=== PATIENT | female | born 1990 | race Caucasian/White ===

== ENCOUNTER 2017-06-13 18:01 | Emergency (ER) | payer OTHER ==
[2017-06-13 18:12] VITALS: TEMP 97.9
[2017-06-13 18:48] LABS: Appearance,Urine Cloudy (Clear); Bacteria,Urine Rare /hpf; Bilirubin,Urine Negative (Negative); Glucose,Urine (UA) Negative (Negative); Ketones,Urine Trace (Negative); Leukocyte Esterase,Urine Trace (Negative); Mucus,Urine Rare /hpf; Nitrite,Urine Negative (Negative); PH, Urine 5.5 (5.0-8.0); Particle Count 9115; Protein,Urine Trace (Negative); RBC,Urine 1 /hpf (0-5); Specific Gravity,Urine 1.017 (1.001-1.035); Squamous Epithelial Cell,Urine 23 /hpf (0-4); UA Billing (MACRO vs. MICRO) MICRO; Urobilinogen,Urine <2.0 mg/dL (<2.0); WBC,Urine 3 /hpf (0-5)
--- NOTE | 2017-06-13 19:14 | CT ---
EXAMINATION TYPE: CT brain torin love DATE OF EXAM: 06/13/2017 COMPARISON: NONE HISTORY: Syncopal episode today without injury. Complains of neck pain CT DLP: 1603.9 mGycm Automated exposure control for dose reduction was used. TECHNIQUE: CT scan of the head and cervical spine are performed without contrast. FINDINGS: Ventricles and sulci are within normal limits. There is no mass effect nor midline shift. There is no sign of intracranial hemorrhage. There is a mucous retention cyst in the left maxillary sinus. The calvarium is intact. There is some cervical kyphotic curvature probably due to positioning. This spaces are normal. [employer] ior elements are intact. I see no fracture. The skull base appears intact. Facet joints appear normal . IMPRESSION: Negative CT scan of the brain. Negative CT scan of the cervical spine. Small mucus retention cyst left maxillary sinus.
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
[2017-06-13 19:49] VITALS: BP 128/68; PULSE 76; RESP 18
== END 2017-06-13 19:50 | disposition home or self-care (01) ==
LOC: EC 18:01
DX: R55 Syncope and collapse (principal); M54.2 Cervicalgia; F32.9 Major depressive disorder, single episode, unspecified; F17.200 Nicotine dependence, unspecified, uncomplicated; Z79.899 Other long term (current) drug therapy
CPT/HCPCS: 70450; 72125; 80306; 81001; 81025; 99285

== ENCOUNTER 2018-10-04 19:04 | Emergency (ER) | payer OTHER ==
[2018-10-04 19:18] VITALS: BP 124/87; PULSE 88; RESP 18; TEMP 98
--- NOTE | 2018-10-04 20:36 | ED ---
General Adult HPI - General Chief complaint: Psychiatric Symptoms Stated complaint: Suicidal Time Seen by Provider: 10/04/18 19:09 Source: patient, EMS, RN notes reviewed Mode of arrival: EMS Limitations: no limitations - History of Present Illness Initial comments: 27-year-old female with a past medical history of depression presents to the emergency department for a chief complaint of suicidal thoughts. Patient states these started after she found out her boyfriend was cheating on her today. Patient states she initially had a plan of jumping in the river or jumping in front of traffic. However she states she is no longer having these thoughts and states she is strong enough to handle this. Legal guardian is concerned about these. However patient has not had them before. Patient is unmedicated for depression. Patient has no other complaints at this time including shortness of breath, chest pain, abdominal pain, nausea or vomiting, headache, or visual changes. - Related Data Allergies Allergy/AdvReac Type Severity Reaction Status Date / Time No Known Allergies Allergy Verified 10/04/18 19:32 Review of Systems ROS Statement: Those systems with pertinent positive or pertinent negative responses have been documented in the HPI. ROS Other: All systems not noted in ROS Statement are negative. Past Medical History Past Medical History: No Reported History Additional Past Medical History / Comment(s): developmental delay History of Any Multi-Drug Resistant Organisms: None Reported Past Surgical History: Section Past Psychological History: Depression Smoking Status: Current every day smoker Past Alcohol Use History: None Reported Past Drug Use History: None Reported General Exam Limitations: no limitations General appearance: alert, in no apparent distress Head exam: Present: atraumatic, normocephalic, normal inspection Eye exam: Present: normal appearance, PERRL, EOMI. Absent: scleral icterus, conjunctival injection, periorbital swelling ENT exam: Present: normal exam, mucous membranes moist Neck exam: Present: normal inspection. Absent: tenderness, meningismus, lymphadenopathy Respiratory exam: Present: normal lung sounds bilaterally. Absent: respiratory distress, wheezes, rales, rhonchi, stridor Cardiovascular Exam: Present: regular rate, normal rhythm, normal heart sounds. Absent: systolic murmur, diastolic murmur, rubs, gallop, clicks GI/Abdominal exam: Present: soft, normal bowel sounds. Absent: distended, tenderness, guarding, rebound, rigid Extremities exam: Present: other (appears WNL x 4) Neurological exam: Present: alert, oriented X3, CN II-XII intact Psychiatric exam: Present: normal affect, normal mood Course Vital Signs 10/04/18 19:09 Temperature 98 F Pulse Rate 88 Respiratory 18 Rate Blood Pressure 124/87 O2 Sat by Pulse 97 Oximetry Medical Decision Making - Medical Decision Making 27-year-old female with a past medical history of depression presents for chief combative suicidal thoughts. He started today after she found out her boyfriend was cheating on her. However patient is refusing having any of these thoughts at this time and states she is strong enough to handle this. EPS evaluated and spoke with legal guardian. They discussed this with the psychiatrist. At this time they feel patient does not need admission if she is denying any current suicidal thoughts and wishes to go home. Mobile crisis will be monitoring patient throughout this evening. She will be following up with [facility] in the morning. Legal guarding aware. Patient safety angelo. Patient ready to go home. Discussed returning if she has any worsening symptoms. - Lab Data Lab Results 10/04/18 10/04/18 Range/Units 20:00 20:00 Urine HCG, Qual Not Detected (Not Detectd) Urine Opiates Screen Not Detected (NotDetected) Ur Oxycodone Screen Not Detected (NotDetected) Urine Methadone Screen Not Detected (NotDetected) Ur Propoxyphene Screen Not Detected (NotDetected) Ur Barbiturates Screen Not Detected (NotDetected) U Tricyclic Antidepress Not Detected (NotDetected) Ur Phencyclidine Scrn Not Detected (NotDetected) Ur Amphetamines Screen Not Detected (NotDetected) U Methamphetamines Scrn Not Detected (NotDetected) U Benzodiazepines Scrn Not Detected (NotDetected) Urine Cocaine Screen Not Detected (NotDetected) U Marijuana (THC) Screen Detected H (NotDetected) Disposition Clinical Impression: Situational depression, Adjustment reaction Disposition: HOME SELF-CARE Condition: Good Instructions (If sedation given, give patient instructions): Depression (ED), Suicide Prevention (ED) Additional Instructions: Please follow up with [facility] tomorrow morning as directed by the psychology nurse. Please follow-up with primary care. Return here if you have any worsening symptoms whatsoever including additional thoughts of suicide. Is patient prescribed a controlled substance at d/c from ED?: No Referrals: Melanie Pinzon MD [STAFF PHYSICIAN] - 1-2 days Time of Disposition: 21:33
[2018-10-04 20:40] LABS: Amphetamine Screen,Urine Not Detected (NotDetected); Barbiturate Screen,Urine Not Detected (NotDetected); Benzodiazepines Screen,Urine Not Detected (NotDetected); Cocaine Screen,Urine Not Detected (NotDetected); Methadone Screen, Urine Not Detected (NotDetected); Opiate Screen,Urine Not Detected (NotDetected); Oxycodone Screen, Urine Not Detected (NotDetected); Phencyclidine Screen,Urine Not Detected (NotDetected); Tricyclic Antidepressant,Urine Not Detected (NotDetected); Urn Cannabinoid Scrn Detected (NotDetected)
== END 2018-10-04 21:49 | disposition home or self-care (01) ==
LOC: EC 19:04
DX: F43.21 Adjustment disorder with depressed mood (principal); F17.200 Nicotine dependence, unspecified, uncomplicated
CPT/HCPCS: 80306; 81025; 82075; 99285

== ENCOUNTER 2023-07-02 23:40 | Emergency (ER) | payer OTHER ==
[2023-07-03 00:21] VITALS: BP 102/44; PULSE 79; RESP 18; TEMP 98.2
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
--- NOTE | 2023-07-03 03:40 | CT ---
EXAM: CT Head Without Intravenous Contrast CLINICAL HISTORY: ITS.REASON CT Reason: head injury TECHNIQUE: Axial computed tomography images of the head/brain without intravenous contrast. CTDI is 60.3 mGy and DLP is 1054.2 mGy-cm. This CT exam was performed using one or more of the following dose reduction techniques: automated exposure control, adjustment of the mA and/or kV according to patient size, and/or use of iterative reconstruction technique. COMPARISON: No relevant prior studies available. FINDINGS: Brain: No hemorrhage or mass effect. Ventricles: No hydrocephalus. Bones/joints: Unremarkable. Soft tissues: Unremarkable. Sinuses: No air fluid level. Mastoid air cells: Clear. IMPRESSION: No acute hemorrhage, hydrocephalus, or mass effect.
== END 2023-07-03 03:01 | disposition left against medical advice (07) ==
LOC: EC 23:40
DX: S09.90XA Unspecified injury of head, initial encounter (principal); F17.200 Nicotine dependence, unspecified, uncomplicated; F12.90 Cannabis use, unspecified, uncomplicated; Z53.29 Procedure and treatment not carried out because of patient's decision for other reasons; W20.8XXA Other cause of strike by thrown, projected or falling object, initial encounter
CPT/HCPCS: 70450; 99284

== ENCOUNTER 2023-10-05 04:33 | Emergency (ER) | payer OTHER ==
--- NOTE | 2023-10-05 05:04 | ED ---
Psych HPI - General Source: patient Mode of arrival: ambulatory - History of Present Illness MD Complaint: suicidal ideation -: hour(s) Associated Psychiatric Symptoms: suicidal ideation Quality: constant Improves With: none Worsens With: none Context: significant life stressor <RufinoRaul - Last Filed: 10/05/23 08:27> <Sarthak Post - Last Filed: 10/07/23 13:24> - General Chief Complaint: Psychiatric Symptoms Stated Complaint: petition Time Seen by Provider: 10/05/23 04:54 - History of Present Illness Initial Comments: This patient is a 32-year-old woman brought by [facility] department personnel to have evaluation for suicidal ideation. The patient had a conflict with her boyfriend. She then complained of suicidal ideation and made a number scratches to her left forearm using a knife. (Raul Joy) - Related Data Allergies Allergy/AdvReac Type Severity Reaction Status Date / Time No Known Allergies Allergy Verified 10/05/23 04:49 Review of Systems ROS Other: All systems not noted in ROS Statement are negative. Constitutional: Denies: fever, chills Respiratory: Denies: cough, dyspnea Cardiovascular: Denies: chest pain, palpitations Gastrointestinal: Denies: abdominal pain, vomiting, diarrhea Genitourinary: Denies: dysuria, hematuria Musculoskeletal: Denies: back pain Skin: Denies: rash Neurological: Denies: headache, weakness, numbness Psychiatric: Reports: anxiety, suicidal thoughts. Denies: auditory hallucinations, visual hallucinations, homicidal thoughts <SamiaRaul rocha - Last Filed: 10/05/23 08:27> ROS Other: All systems not noted in ROS Statement are negative. <Sarthak Post - Last Filed: 10/07/23 13:24> ROS Statement: Those systems with pertinent positive or pertinent negative responses have been documented in the HPI. Past Medical History Past Medical History: No Reported History Additional Past Medical History / Comment(s): developmental delay History of Any Multi-Drug Resistant Organisms: None Reported Past Surgical History: Section Past Psychological History: Depression Smoking Status: Current every day smoker Past Alcohol Use History: None Reported Past Drug Use History: Marijuana <RufinoRaul - Last Filed: 10/05/23 08:27> General Exam Limitations: no limitations General appearance: alert, anxious Head exam: Present: atraumatic, normocephalic Eye exam: Present: normal appearance. Absent: scleral icterus, conjunctival injection ENT exam: Present: normal oropharynx Neck exam: Present: normal inspection Respiratory exam: Present: normal lung sounds bilaterally. Absent: respiratory distress, wheezes, rales, rhonchi, stridor Cardiovascular Exam: Present: normal rhythm, tachycardia, normal heart sounds. Absent: systolic murmur, diastolic murmur, rubs, gallop GI/Abdominal exam: Present: soft. Absent: distended, tenderness, guarding, rebound, rigid, mass Extremities exam: Present: normal inspection, normal capillary refill. Absent: pedal edema, calf tenderness Back exam: Present: normal inspection. Absent: CVA tenderness (R), CVA tenderness (L) Neurological exam: Present: alert Psychiatric exam: Present: agitated, suicidal ideation. Absent: flat affect, manic, homicidal ideation Skin exam: Present: warm, dry, intact, normal color. Absent: rash <Raul Joy - Last Filed: 10/05/23 08:27> Course Vital Signs 10/05/23 10/05/23 10/05/23 04:47 06:15 08:05 Temperature 98.5 F 98.0 F Pulse Rate 118 H 72 88 Respiratory 20 18 18 Rate Blood Pressure 109/61 106/72 O2 Sat by Pulse 99 99 98 Oximetry 10/05/23 14:17 Temperature 98 F Pulse Rate 82 Respiratory 18 Rate Blood Pressure 110/58 O2 Sat by Pulse 97 Oximetry Medical Decision Making <Raul Joy - Last Filed: 10/05/23 08:27> <Sarthak Post - Last Filed: 10/07/23 13:24> - Medical Decision Making Was pt. sent in by a medical professional or institution (, PA, PRISON PSYCHIATRIST, urgent care, hospital, or senior care...) When possible be specific @ -[No] Did you speak to anyone other than the patient for history (EMS, parent, family, police, friend...)? What history was obtained from this source @ -[Cross Tie Maker personal give history Did you review nursing and triage notes (agree or disagree)? Why? @ -[I reviewed and agree with nursing and triage notes] Were old charts reviewed (outside hosp., previous admission, EMS record, old EKG, old radiological studies, urgent care reports/EKG's, senior care records)? Report findings @ -[No old charts were reviewed] Differential Diagnosis (chest pain, altered mental status, abdominal pain women, abdominal pain men, vaginal bleeding, weakness, fever, dyspnea, syncope, headache, dizziness, GI bleed, back pain, seizure, CVA, palpatations, mental health, musculoskeletal)? @ -[Differential Mental Health Depression, anxiety, bipolar, psychosis, schizophrenia, borderline personality, situational depression, adjustment disorder, behavioral disorder, brain tumor, malingering, substance abuse, encephalopathy, medication reaction, dementia, hypothyroidism, degenerative neurologic disorder, lupus.... This is not meant to be all-inclusive list EKG interpreted by me (3pts min.). @ -[As above] X-rays interpreted by me (1pt min.). @ -[None done] CT interpreted by me (1pt min.). @ -[None done] U/S interpreted by me (1pt. min.). @ -[None done] What testing was considered but not performed or refused? (CT, X-rays, U/S, labs)? Why? @ -[None] What meds were considered but not given or refused? Why? @ -[None] Did you discuss the management of the patient with other professionals (professionals i.e. , PA, PRISON PSYCHIATRIST, lab, RT, psych nurse, social services designee, telecommunications sales representative, teacher, tank officer, case packer and sealer)? Give summary @ -[No] Was smoking cessation discussed for >3mins.? @ -[No] Was critical care preformed (if so, how long)? @ -[No] Were there social determinants of health that impacted care today? How? (Homelessness, low income, unemployed, alcoholism, drug addiction, transportation, low edu. Level, literacy, decrease access to med. care, detention, rehab)? @ -[No] Was there de-escalation of care discussed even if they declined (Discuss DNR or withdrawal of care, Hospice)? DNR status @ -[No] What co-morbidities impacted this encounter? (DM, HTN, Smoking, COPD, CAD, Cancer, CVA, ARF, Chemo, Hep., AIDS, mental health diagnosis, sleep apnea, morbid obesity)? @ -[None] Was patient admitted / discharged? Hospital course, mention meds given and route, prescriptions, significant lab abnormalities, going to OR and other pertinent info. @ -[The patient is signed out pending EPS disposition (Raul Joy) Was patient admitted / discharged? Hospital course, mention meds given and route, prescriptions, significant lab abnormalities, going to OR and other pertinent info. @ -Patient was signed out to ED by Dr. Gonzalez at 7 AM. Patient was evaluated by EPS EPS and consultation with the psychiatrist felt the patient could be discharged home with a safety plan patient was discharged home with a safety plan everybody was in agreement including the guardian Undiagnosed new problem with uncertain prognosis? @ -No Drug Therapy requiring intensive monitoring for toxicity (Heparin, Nitro, Insulin, Cardizem)? @ -No Were any procedures done? @ -No Diagnosis/symptom? @ -Situational depression Acute, or Chronic, or Acute on Chronic? @ -Acute Uncomplicated (without systemic symptoms) or Complicated (systemic symptoms)? @ -Complicated Side effects of treatment? @ -No Exacerbation, Progression, or Severe Exacerbation? @ -No Poses a threat to life or bodily function? How? (Chest pain, USA, ME, pneumonia, PE, COPD, DKA, ARF, appy, cholecystitis, CVA, Diverticulitis, Homicidal, Suicidal, threat to staff... and all critical care pts) @ -No (Sarthak Post) - Lab Data Lab Results 10/05/23 10/05/23 10/05/23 Range/Units 05:18 05:18 06:53 Urine Color Yellow Urine Appearance Cloudy H (Clear) Urine pH 5.5 (5.0-8.0) Ur Specific [place] 1.024 (1.001-1.035) Urine Protein Negative (Negative) Urine Glucose (UA) Negative (Negative) Urine Ketones Negative (Negative) Urine Blood Large H (Negative) Urine Nitrite Negative (Negative) Urine Bilirubin Negative (Negative) Urine Urobilinogen <2.0 (<2.0) mg/dL Ur Leukocyte Esterase Small H (Negative) Urine RBC 1 (0-5) /hpf Urine WBC 11 H (0-5) /hpf Ur Squamous Epith Cells 10 H (0-4) /hpf Hyaline Casts 1 (0-2) /lpf Urine Mucus Rare H (None) /hpf Urine HCG, Qual Not Detected (Not Detectd) Urine Opiates Screen Not Detected (NotDetected) Ur Oxycodone Screen Not Detected (NotDetected) Urine Methadone Screen Not Detected (NotDetected) Ur Barbiturates Screen Not Detected (NotDetected) U Tricyclic Antidepress Not Detected (NotDetected) Ur Phencyclidine Scrn Not Detected (NotDetected) Ur Amphetamines Screen Detected H (NotDetected) U Methamphetamines Scrn Detected H (NotDetected) U Benzodiazepines Scrn Not Detected (NotDetected) Urine Cocaine Screen Detected H (NotDetected) U Marijuana (THC) Screen Detected H (NotDetected) Disposition <Raul Joy - Last Filed: 10/05/23 08:27> Is patient prescribed a controlled substance at d/c from ED?: No Time of Disposition: 13:56 <Sarthak Post - Last Filed: 10/07/23 13:24> Clinical Impression: Situational depression Disposition: HOME SELF-CARE Instructions (If sedation given, give patient instructions): Depression (ED) Referrals: None,Stated [Primary Care Provider] - 1-2 days
[2023-10-05 06:28] VITALS: RESP 18
[2023-10-05 07:42] LABS: Appearance,Urine Cloudy (Clear); Bilirubin,Urine Negative (Negative); Blood,Urine Large (Negative); Color,Urine Yellow; Glucose,Urine (UA) Negative (Negative); Hyaline Casts,Urine 1 /lpf (0-2); Ketones,Urine Negative (Negative); Leukocyte Esterase,Urine Small (Negative); Mucus,Urine Rare /hpf; Nitrite,Urine Negative (Negative); PH, Urine 5.5 (5.0-8.0); Protein,Urine Negative (Negative); RBC,Urine 1 /hpf (0-5); Specific Gravity,Urine 1.024 (1.001-1.035); Squamous Epithelial Cell,Urine 10 /hpf (0-4); Urobilinogen,Urine <2.0 mg/dL (<2.0); WBC,Urine 11 /hpf (0-5)
[2023-10-05 07:48] LABS: Amphetamine Screen,Urine Detected (NotDetected); Barbiturate Screen,Urine Not Detected (NotDetected); Benzodiazepines Screen,Urine Not Detected (NotDetected); Cocaine Screen,Urine Detected (NotDetected); Methadone Screen, Urine Not Detected (NotDetected); Opiate Screen,Urine Not Detected (NotDetected); Oxycodone Screen, Urine Not Detected (NotDetected); Phencyclidine Screen,Urine Not Detected (NotDetected); Tricyclic Antidepressant,Urine Not Detected (NotDetected); Urn Cannabinoid Scrn Detected (NotDetected)
[2023-10-05 14:20] VITALS: BP 110/58; PULSE 82; TEMP 98
== END 2023-10-05 14:17 | disposition home or self-care (01) ==
LOC: EC 04:33
DX: F43.21 Adjustment disorder with depressed mood (principal); F12.90 Cannabis use, unspecified, uncomplicated; Z86.59 Personal history of other mental and behavioral disorders
CPT/HCPCS: 80306; 81001; 81025; 82075; 87086; 99285

== ENCOUNTER 2024-04-17 13:14 | Emergency (ER) | payer OTHER ==
[2024-04-17] MEDS ORDERED: PROPARACAINE 0.5% OPHTH DROPS 15 ML BTL ONE (13:37)
[2024-04-17] MEDS ORDERED: FLUORESCEIN STRIPS 1 MG STRIP ONE (13:37)
[2024-04-17] MEDS ORDERED: CIPROFLOXACIN 0.3% OPHTH SOLN 5 ML BTL ONE (13:40)
[2024-04-17] MEDS ORDERED: IBUPROFEN 600 MG TAB PO ONE (14:04)
== END 2024-04-17 15:00 | disposition home or self-care (01) ==
LOC: EC 13:14
CPT/HCPCS: 99283

== ENCOUNTER 2024-07-15 12:56 | Emergency (ER) | payer OTHER ==
[2024-07-15] MEDS: HYDROcodone/APAP 7.5-325MG 1 EACH TAB PO ONE (13:53)
[2024-07-15] MEDS: IBUPROFEN 800 MG TAB PO STA (14:02)
[2024-07-15] MEDS: CYCLOBENZAPRINE 10 MG TAB PO STA (14:02)
--- NOTE | 2024-07-15 14:22 | ED ---
Extremity Problem HPI - General Chief complaint: Extremity Problem,Nontraumatic Stated complaint: L foot pain Time Seen by Provider: 07/15/24 13:23 Source: patient, family, RN notes reviewed Mode of arrival: wheelchair Limitations: no limitations - History of Present Illness Initial comments: This is a 33-year-old female who presents to the emergency department for left foot pain. States that last night she started developing pain throughout the left foot and was unable to sleep. Describes it as a cramping sensation. Pain does not radiate up the leg. Denies any injuries. She has not yet taken anything for the pain. MD Complaint: extremity pain - Related Data Previous Rx's Medication Instructions Recorded Ketorolac [Toradol] 10 mg PO Q6HR PRN #15 tab 07/15/24 methocarbamoL [Robaxin-750] 1,500 mg PO TID PRN #30 tab 07/15/24 Allergies Allergy/AdvReac Type Severity Reaction Status Date / Time No Known Allergies Allergy Verified 07/15/24 13:16 Review of Systems ROS Statement: Those systems with pertinent positive or pertinent negative responses have been documented in the HPI. ROS Other: All systems not noted in ROS Statement are negative. Past Medical History Past Medical History: No Reported History Additional Past Medical History / Comment(s): developmental delay History of Any Multi-Drug Resistant Organisms: None Reported Past Surgical History: Section Past Psychological History: Depression Smoking Status: Current every day smoker Past Alcohol Use History: None Reported Past Drug Use History: Marijuana General Exam Limitations: no limitations General appearance: alert, in no apparent distress Head exam: Present: atraumatic, normocephalic, normal inspection Respiratory exam: Present: normal lung sounds bilaterally. Absent: respiratory distress, wheezes, rales, rhonchi, stridor Cardiovascular Exam: Present: regular rate, normal rhythm, normal heart sounds. Absent: systolic murmur, diastolic murmur, rubs, gallop, clicks Extremities exam: Present: other (Diffuse tenderness throughout the left foot. No swelling, erythema, or ecchymosis. 2+ DP and PT pulses) Neurological exam: Present: alert, oriented X3, CN II-XII intact Psychiatric exam: Present: normal affect, normal mood Skin exam: Present: warm, dry, intact, normal color. Absent: rash Course Vital Signs 07/15/24 07/15/24 13:16 15:45 Temperature 98.1 F 98.2 F Pulse Rate 63 761 H Respiratory 18 8 L Rate Blood Pressure 103/65 110/56 O2 Sat by Pulse 98 96 Oximetry Medical Decision Making - Medical Decision Making This is a 33 year old female who presents to the emergency department for left foot pain. Was pt. sent in by a medical professional or institution? @ -No Did you speak to anyone other than the patient for history? @ -No Did you review nursing and triage notes? @ -Yes, and I agree, it is accurate with regards to the patient's symptoms. Were old charts reviewed? @ -No Differential Diagnosis? @ -Differential Musculoskeletal Muscular strain, contusion, ligament sprain, fracture, arthritis, septic arthritis, bursitis, cellulitis, muscle spasm, nerve compression, DVT, arterial occlusion, herpes zoster, electrolyte abnormality, tumor.... This is not meant to be in all inclusive list EKG interpreted by me (3pts min.)? @ -Not obtained X-rays interpreted by me (1pt min.)? @ -X-ray of the left foot obtained. My interpretation identifies no acute fractures. CT interpreted by me (1pt min.)? @ -Not obtained U/S interpreted by me (1pt. min.)? @ -Not obtained What testing was considered but not performed? (CT, X-rays, U/S, labs)? Why? @ -None What meds were considered but not given? Why? @ -None Did you discuss the management of the patient with other professionals? @ -No Did you reconcile home meds? @ -No Was smoking cessation discussed for >3mins.? @ -I discussed smoking cessation for greater than 3 minutes. The risk of smoking were discussed with the patient including but not limited to risks of cancer, stroke, coronary artery disease and COPD. Also discussed with patient were multiple methods of quitting smoking. Lastly we discussed the financial cost of smoking. Was critical care preformed (if so, how long)? @ -No Were there social determinants of health that impacted care today? How? (Homelessness, low income, unemployed, alcoholism, drug addiction, transportation, low edu. Level, literacy, decrease access to med. care, shelter, rehab)? @ -No Was there de-escalation of care discussed even if they declined? (Discuss DNR or withdrawal of care, Hospice)? @ -No What co-morbidities impacted this encounter? (DM, HTN, Smoking, COPD, CAD, Cancer, CVA, Hep., AIDS, mental health diagnosis, sleep apnea, morbid obesity)? @ -Smoking, developmental delay Was patient admitted / discharged? @ -Discharged. X-ray of the left foot obtained revealing no acute process. She had diffuse tenderness. However, there was no swelling, erythema, or other irregularities. She was also neurovascularly intact. Pain managed in the emergency department. Advise she follow-up with her PCP for reevaluation. Prescription for Toradol and Robaxin provided. Patient discharged home in stable condition. Case discussed with ED attending Dr. Rivas. Return precautions reviewed in depth, the patient is instructed to return to the emergency department with any new, worsening, or concerning symptoms. Patient verbalized understanding. Undiagnosed new problem with uncertain prognosis? @ -None Drug Therapy requiring intensive monitoring for toxicity (Heparin, Nitro, Insulin, Cardizem)? @ -None Were any procedures done? @ -None Diagnosis/symptom? @ -Left foot pain Acute, or Chronic, or Acute on Chronic? @ -Acute Uncomplicated (without systemic symptoms) or Complicated (systemic symptoms)? @ -Uncomplicated Side effects of treatment? @ -None Exacerbation, Progression, or Severe Exacerbation] @ -Not applicable Poses a threat to life or bodily function? @ -No - Radiology Data Radiology results: report reviewed, image reviewed Disposition Clinical Impression: Left foot pain, Nicotine dependence Disposition: HOME SELF-CARE Instructions (If sedation given, give patient instructions): Metatarsalgia (DC) Additional Instructions: Return to the emergency department with any new, worsening, or concerning symptoms. Take the Toradol with Tylenol as needed for pain relief. If you choose to take the Toradol, do not take any other anti-inflammatories such as ibuprofen, take one or the other. Take the Robaxin as 1 to 2 tablets up to 3-4 times daily. Make sure you wear supportive footwear. Follow up with your primary care provider in 1-2 days. Prescriptions: methocarbamoL [Robaxin-750] 1,500 mg PO TID PRN #30 tab PRN Reason: Pain Ketorolac [Toradol] 10 mg PO Q6HR PRN #15 tab PRN Reason: Pain Is patient prescribed a controlled substance at d/c from ED?: No Referrals: None,Stated [Primary Care Provider] - 1-2 days Time of Disposition: 15:39
[2024-07-15] MEDS: KETOROLAC 15 MG/ML 1 ML VIAL IM STA (14:35)
[2024-07-15] MEDS: ORPHENADRINE 30 MG/ML 2 ML VIAL IM STA (14:35)
--- NOTE | 2024-07-15 15:29 | XR ---
EXAMINATION TYPE: XR foot complete LT DATE OF EXAM: 07/15/2024 2:23 PM COMPARISON: None CLINICAL INDICATION: Female, 33 years old with history of Pain; [facility] TECHNIQUE: XR foot complete LT examined in the AP, oblique, and lateral projections. FINDINGS: No evidence of any acute osseous pathology. IMPRESSION: No evidence of acute fracture. [facility], , 07/15/2024 3:26 PM
[2024-07-15] MEDS: ACET/COD 300 MG/30 MG STARTER PACK 6 TAB BTL PO STA (15:44)
[2024-07-15 15:47] VITALS: BP 110/56; PULSE 761; RESP 8; TEMP 98.2
== END 2024-07-15 16:01 | disposition home or self-care (01) ==
LOC: EC 12:56
DX: M79.672 Pain in left foot (principal); I10 Essential (primary) hypertension; E11.9 Type 2 diabetes mellitus without complications; J44.9 Chronic obstructive pulmonary disease, unspecified; I25.10 Atherosclerotic heart disease of native coronary artery without angina pectoris; G47.30 Sleep apnea, unspecified; E66.01 Morbid (severe) obesity due to excess calories; F17.200 Nicotine dependence, unspecified, uncomplicated; Z86.73 Personal history of transient ischemic attack (TIA), and cerebral infarction without residual deficits; Z68.21 Body mass index [BMI] 21.0-21.9, adult
CPT/HCPCS: 99283

== ENCOUNTER 2025-01-02 18:39 | Emergency (ER) | payer OTHER ==
[2025-01-02 18:51] VITALS: TEMP 98
[2025-01-02] MEDS: LORazepam 1 MG TAB PO STA (19:54)
[2025-01-02 20:04] LABS: Appearance,Urine Clear (Clear); Bacteria,Urine Rare /hpf; Bilirubin,Urine Negative (Negative); Blood,Urine Negative (Negative); Budding Yeast,Urine Rare /hpf; Color,Urine Colorless; Glucose,Urine (UA) Negative (Negative); Ketones,Urine Negative (Negative); Leukocyte Esterase,Urine Small (Negative); Nitrite,Urine Negative (Negative); PH, Urine 6.5 (5.0-8.0); Protein,Urine Negative (Negative); RBC,Urine 1 /hpf (0-5); Specific Gravity,Urine 1.005 (1.001-1.035); Squamous Epithelial Cell,Urine <1 /hpf (0-4); Urobilinogen,Urine <2.0 mg/dL (<2.0); WBC,Urine 12 /hpf (0-5)
[2025-01-02 20:23] LABS: Amphetamine Screen,Urine Not Detected (NotDetected); Barbiturate Screen,Urine Not Detected (NotDetected); Benzodiazepines Screen,Urine Not Detected (NotDetected); Cocaine Screen,Urine Not Detected (NotDetected); Methadone Screen, Urine Not Detected (NotDetected); Opiate Screen,Urine Not Detected (NotDetected); Oxycodone Screen, Urine Not Detected (NotDetected); Phencyclidine Screen,Urine Not Detected (NotDetected); Tricyclic Antidepressant,Urine Not Detected (NotDetected); Urn Cannabinoid Scrn Not Detected (NotDetected)
[2025-01-02 20:45] LABS: ALT 14 U/L (4-34); AST 17 U/L (14-36); African American GFR (CKD) >90 (>60 ml/min/1.73 sqM); Albumin 4.5 g/dL (3.5-5.0); Alkaline Phosphatase 71 U/L (38-126); Anion Gap 10 mmol/L; Blood Urea Nitrogen 5 mg/dL (7-17); Carbon Dioxide 25 mmol/L (22-30); Chloride 106 mmol/L (98-107); Glucose 93 mg/dL (74-99); Non-African American GFR(CKD) >90 (>60 ml/min/1.73 sqM); Potassium 3.7 mmol/L (3.5-5.1); Sodium 141 mmol/L (137-145); Total Bilirubin 0.9 mg/dL (0.2-1.3); Total Protein 7.2 g/dL (6.3-8.2)
--- NOTE | 2025-01-02 21:13 | ED ---
General Adult HPI - General Chief complaint: Psychiatric Symptoms Stated complaint: mental health Time Seen by Provider: 01/02/25 19:30 Source: patient, RN notes reviewed Mode of arrival: ambulatory Limitations: no limitations - History of Present Illness Initial comments: Patient is a 34-year-old female presents emergency department for psychiatric evaluation. Patient apparently is homeless. Possibly using drugs. States she has been having thoughts about herself and is hearing voices that are telling her to hurt herself as well as others. Has not acted on these. Denies any acute complaints otherwise. Does feel anxious. Presents for evaluation. Presents with her friend who did petition he a number. - Related Data Previous Rx's Medication Instructions Recorded Ketorolac [Toradol] 10 mg PO Q6HR PRN #15 tab 07/15/24 methocarbamoL [Robaxin-750] 1,500 mg PO TID PRN #30 tab 07/15/24 Allergies Allergy/AdvReac Type Severity Reaction Status Date / Time No Known Allergies Allergy Verified 01/02/25 18:51 Review of Systems ROS Statement: Those systems with pertinent positive or pertinent negative responses have been documented in the HPI. Review of Systems: CONST: Denies fever EYES: Denies blurry vision ENT: Denies nasal congestion C/V: Denies Chest pain RESP: Denies shortness of breath GI: Denies abdominal pain : Denies dysuria SKIN: Denies rash. MSK: Denies joint pain. NEURO: Denies headache ROS Other: All systems not noted in ROS Statement are negative. Past Medical History Past Medical History: No Reported History Additional Past Medical History / Comment(s): developmental delay History of Any Multi-Drug Resistant Organisms: None Reported Past Surgical History: Section Past Psychological History: Depression Smoking Status: Current every day smoker Past Alcohol Use History: None Reported Past Drug Use History: Marijuana General Exam - General Exam Comments Initial Comments: General: Appears in no acute distress. HEAD: Normal with no signs of head trauma. EYES: PERRLA, EOMI, conjunctiva normal, no discharge. ENT: Hearing grossly intact, normal oropharynx. RESPIRATORY: Clear breath sounds bilaterally. No wheezes, rales, or rhonchi. C/V: Regular rate and rhythm. S1 and S2 auscultated, no edema, peripheral pulses 2+ and intact throughout ABD: Abd is soft, nontender, nondistended EXT: Normal range of motion, no obvious deformity SKIN: No rashes or lesions observed on exposed skin. NEURO: Alert and oriented x 4. Limitations: no limitations Course Vital Signs 01/02/25 18:48 Temperature 98 F Pulse Rate 60 Respiratory 20 Rate Blood Pressure 123/78 O2 Sat by Pulse 99 Oximetry Medical Decision Making - Medical Decision Making Was pt. sent in by a medical professional or institution (, PA, EQUIPMENT SCHEDULER, urgent care, hospital, or fdc...) When possible be specific @ -No Did you speak to anyone other than the patient for history (EMS, parent, family, police, friend...)? What history was obtained from this source @ -No Did you review nursing and triage notes (agree or disagree)? Why? @ -I reviewed and agree with nursing and triage notes Were old charts reviewed (outside hosp., previous admission, EMS record, old EKG, old radiological studies, urgent care reports/EKG's, fdc records)? Report findings @ -No old charts were reviewed Differential Diagnosis (chest pain, altered mental status, abdominal pain women, abdominal pain men, vaginal bleeding, weakness, fever, dyspnea, syncope, headache, dizziness, GI bleed, back pain, seizure, CVA, palpatations, mental health, musculoskeletal)? @ -Differential Mental Health Depression, anxiety, bipolar, psychosis, schizophrenia, borderline personality, situational depression, adjustment disorder, behavioral disorder, brain tumor, malingering, substance abuse, encephalopathy, medication reaction, dementia, hypothyroidism, degenerative neurologic disorder, lupus.... This is not meant to be all-inclusive list EKG interpreted by me (3pts min.). @ -None done X-rays interpreted by me (1pt min.). @ -None done CT interpreted by me (1pt min.). @ -None done U/S interpreted by me (1pt. min.). @ -None done What testing was considered but not performed or refused? (CT, X-rays, U/S, labs)? Why? @ -None What meds were considered but not given or refused? Why? @ -None Did you discuss the management of the patient with other professionals (professionals i.e. , PA, EQUIPMENT SCHEDULER, lab, RT, psych nurse, social media assistant, market researcher, teacher, railroad police officer, caseworker protective services)? Give summary @ -EPS notified of the consult Was smoking cessation discussed for >3mins.? @ -No Was critical care preformed (if so, how long)? @ -No Were there social determinants of health that impacted care today? How? (Homelessness, low income, unemployed, alcoholism, drug addiction, transportation, low edu. Level, literacy, decrease access to med. care, custodial, rehab)? @ -No Was there de-escalation of care discussed even if they declined (Discuss DNR or withdrawal of care, Hospice)? DNR status @ -No What co-morbidities impacted this encounter? (DM, HTN, Smoking, COPD, CAD, Cancer, CVA, ARF, Chemo, Hep., AIDS, mental health diagnosis, sleep apnea, morbid obesity)? @ -None Was patient admitted / discharged? Hospital course, mention meds given and route, prescriptions, significant lab abnormalities, going to OR and other pertinent info. @ -Presents for psychiatric evaluation for suicidal and homicidal ideations as well as auditory hallucinations. Voices telling him to do things. Suicide prec autions ordered. Sitter ordered. We will obtain basic labs at her request as well as urinalysis and UDS. Patient was in agreement this plan. BAT is 0. This time, patient is medically cleared for evaluation by EPS. Disposition pending psychiatric evaluation. EPS notified of consult. JT Alonzo did evaluate the patient and later determined that she does meet inpatient criteria for psychiatric admission. Clinical certificate completed by myself. Undiagnosed new problem with uncertain prognosis? @ -No Drug Therapy requiring intensive monitoring for toxicity (Heparin, Nitro, Insulin, Cardizem)? @ -No Were any procedures done? @ -No Diagnosis/symptom? @ -Suicidal ideation, homicidal ideation, hallucinations, acute psychosis Acute, or Chronic, or Acute on Chronic? @ -Acute Uncomplicated (without systemic symptoms) or Complicated (systemic symptoms)? @ -Complicated Side effects of treatment? @ -None Exacerbation, Progression, or Severe Exacerbation] @ -No Poses a threat to life or bodily function? @ -Yes - Lab Data Result diagrams: 01/02/25 20:12 01/02/25 20:12 Lab Results 01/02/25 01/02/25 01/02/25 Range/Units 19:40 19:40 20:12 WBC 13.73 H (4.50-10.00) 10*3/uL RBC 4.95 (4.10-5.20) 10*6/uL Hgb 14.5 (12.0-15.0) g/dL Hct 42.7 (37.2-46.3) % MCV 86.3 (80.0-97.0) fL MCH 29.3 (27.0-32.0) pg MCHC 34.0 (32.0-37.0) g/dL Plt Count 222 (140-440) 10*3/uL MPV 11.3 (9.5-12.2) fL Immature Gran % (Auto) 0.4 % Neutrophils % 65.7 % Lymphocytes % 27.1 % Monocytes % 5.2 % Eosinophils % 0.9 % Basophils % 0.7 % Immature Gran # 0.06 H (0.00-0.04) 10*3/uL Neutrophils # 9.02 H (1.80-7.70) 10*3/uL Lymphocytes # 3.72 (0.90-5.00) 10*3/uL Monocytes # 0.71 (0.20-1.00) 10*3/uL Eosinophils # 0.13 (0.04-0.35) 10*3/uL Basophils # 0.09 (0.00-0.10) 10*3/uL Manual Slide Review Performed RBC Morphology Normal Sodium (137-145) mmol/L Potassium (3.5-5.1) mmol/L Chloride (98-107) mmol/L Carbon Dioxide (22-30) mmol/L Anion Gap mmol/L BUN (7-17) mg/dL Creatinine (0.52-1.04) mg/dL Est GFR (CKD-EPI)AfAm (>60 ml/min/1.73 sqM) Est GFR (CKD-EPI)NonAf (>60 ml/min/1.73 sqM) Glucose (74-99) mg/dL Calcium (8.4-10.2) mg/dL Total Bilirubin (0.2-1.3) mg/dL AST (14-36) U/L ALT (4-34) U/L Alkaline Phosphatase (38-126) U/L Total Protein (6.3-8.2) g/dL Albumin (3.5-5.0) g/dL Urine Color Colorless Urine Appearance Clear (Clear) Urine pH 6.5 (5.0-8.0) Ur Specific [place] 1.005 (1.001-1.035) Urine Protein Negative (Negative) Urine Glucose (UA) Negative (Negative) Urine Ketones Negative (Negative) Urine Blood Negative (Negative) Urine Nitrite Negative (Negative) Urine Bilirubin Negative (Negative) Urine Urobilinogen <2.0 (<2.0) mg/dL Ur Leukocyte Esterase Small H (Negative) Urine RBC 1 (0-5) /hpf Urine WBC 12 H (0-5) /hpf Ur Squamous Epith Cells <1 (0-4) /hpf Urine Bacteria Rare H (None) /hpf Urine Yeast (Budding) Rare H (None) /hpf Urine HCG, Qual Not Detected (Not Detectd) Urine Opiates Screen Not Detected (NotDetected) Ur Oxycodone Screen Not Detected (NotDetected) Urine Methadone Screen Not Detected (NotDetected) Ur Barbiturates Screen Not Detected (NotDetected) U Tricyclic Antidepress Not Detected (NotDetected) Ur Phencyclidine Scrn Not Detected (NotDetected) Ur Amphetamines Screen Not Detected (NotDetected) U Methamphetamines Scrn Not Detected (NotDetected) U Benzodiazepines Scrn Not Detected (NotDetected) Urine Cocaine Screen Not Detected (NotDetected) U Marijuana (THC) Screen Not Detected (NotDetected) SARS-CoV-2 (PCR) (Not Detectd) 01/02/25 01/02/25 Range/Units 20:12 22:38 WBC (4.50-10.00) 10*3/uL RBC (4.10-5.20) 10*6/uL Hgb (12.0-15.0) g/dL Hct (37.2-46.3) % MCV (80.0-97.0) fL MCH (27.0-32.0) pg MCHC (32.0-37.0) g/dL Plt Count (140-440) 10*3/uL MPV (9.5-12.2) fL Immature Gran % (Auto) % Neutrophils % % Lymphocytes % % Monocytes % % Eosinophils % % Basophils % % Immature Gran # (0.00-0.04) 10*3/uL Neutrophils # (1.80-7.70) 10*3/uL Lymphocytes # (0.90-5.00) 10*3/uL Monocytes # (0.20-1.00) 10*3/uL Eosinophils # (0.04-0.35) 10*3/uL Basophils # (0.00-0.10) 10*3/uL Manual Slide Review RBC Morphology Sodium 141 (137-145) mmol/L Potassium 3.7 (3.5-5.1) mmol/L Chloride 106 (98-107) mmol/L Carbon Dioxide 25 (22-30) mmol/L Anion Gap 10 mmol/L BUN 5 L (7-17) mg/dL Creatinine 0.78 (0.52-1.04) mg/dL Est GFR (CKD-EPI)AfAm >90 (>60 ml/min/1.73 sqM) Est GFR (CKD-EPI)NonAf >90 (>60 ml/min/1.73 sqM) Glucose 93 (74-99) mg/dL Calcium 10.0 (8.4-10.2) mg/dL Total Bilirubin 0.9 (0.2-1.3) mg/dL AST 17 (14-36) U/L ALT 14 (4-34) U/L Alkaline Phosphatase 71 (38-126) U/L Total Protein 7.2 (6.3-8.2) g/dL Albumin 4.5 (3.5-5.0) g/dL Urine Color Urine Appearance (Clear) Urine pH (5.0-8.0) Ur Specific [place] (1.001-1.035) Urine Protein (Negative) Urine Glucose (UA) (Negative) Urine Ketones (Negative) Urine Blood (Negative) Urine Nitrite (Negative) Urine Bilirubin (Negative) Urine Urobilinogen (<2.0) mg/dL Ur Leukocyte Esterase (Negative) Urine RBC (0-5) /hpf Urine WBC (0-5) /hpf Ur Squamous Epith Cells (0-4) /hpf Urine Bacteria (None) /hpf Urine Yeast (Budding) (None) /hpf Urine HCG, Qual (Not Detectd) Urine Opiates Screen (NotDetected) Ur Oxycodone Screen (NotDetected) Urine Methadone Screen (NotDetected) Ur Barbiturates Screen (NotDetected) U Tricyclic Antidepress (NotDetected) Ur Phencyclidine Scrn (NotDetected) Ur Amphetamines Screen (NotDetected) U Methamphetamines Scrn (NotDetected) U Benzodiazepines Scrn (NotDetected) Urine Cocaine Screen (NotDetected) U Marijuana (THC) Screen (NotDetected) SARS-CoV-2 (PCR) Not Detected (Not Detectd) Disposition Clinical Impression: Suicidal ideation, Psychosis, Hallucinations, Homicidal ideations Disposition: TRANSFER TO PSYCH HOSP/UNIT Condition: Stable Referrals: None,Stated [Primary Care Provider] - 1-2 days
[2025-01-02 21:28] LABS: Basophils # (A) 0.09 10*3/uL (0.00-0.10); Basophils % (A) 0.7 %; Eosinophils # (A) 0.13 10*3/uL (0.04-0.35); Eosinophils % (A) 0.9 %; HCT 42.7 % (37.2-46.3); HGB 14.5 g/dL (12.0-15.0); Lymphocytes # (A) 3.72 10*3/uL (0.90-5.00); Lymphocytes % (A) 27.1 %; MCH 29.3 pg (27.0-32.0); MCV 86.3 fL (80.0-97.0); Mean Platelet Volume 11.3 fL (9.5-12.2); Monocytes # (A) 0.71 10*3/uL (0.20-1.00); Monocytes % (A) 5.2 %; Neutrophils # (A) 9.02 10*3/uL (1.80-7.70); Neutrophils % (A) 65.7 %; Platelet Count 222 10*3/uL (140-440); RBC 4.95 10*6/uL (4.10-5.20); RDW 12.8 % (11.5-14.5); WBC 13.73 10*3/uL (4.50-10.00)
[2025-01-02 23:28] LABS: RBC Morphology Normal
[2025-01-03 11:47] VITALS: RESP 18
[2025-01-03 15:36] VITALS: BP 97/61; PULSE 78
== END 2025-01-03 15:36 ==
LOC: EC 18:39
DX: R45.851 Suicidal ideations (principal); R45.850 Homicidal ideations; F17.200 Nicotine dependence, unspecified, uncomplicated; Z11.52 Encounter for screening for COVID-19; Z59.00 Homelessness unspecified
CPT/HCPCS: 36415; 80053; 80306; 81001; 81025; 82075; 85025; 87635; 99285

== ENCOUNTER 2025-01-21 19:46 | Inpatient (IN) | payer MEDICAID, OTHER ==
--- NOTE | 2025-01-21 21:33 | ED ---
Psych HPI - General Source: patient, EMS, RN notes reviewed Mode of arrival: EMS <Mary De Souza - Last Filed: 02/12/25 22:57> <Renetta Martinez - Last Filed: 02/16/25 16:20> - General Chief Complaint: Psychiatric Symptoms Stated Complaint: Mental Health Time Seen by Provider: 01/21/25 21:31 - History of Present Illness Initial Comments: 34-year-old female presenting for suicidal ideation. Boyfriend is at bedside who explains that patient is admitting to hearing voices inside her head telling her to hurt herself. Symptoms began last night. Patient does report having suicidal ideation however denies plan. No medical complaints at this time (De SouzaMary) - Related Data Previous Rx's Medication Instructions Recorded Melatonin 10 mg PO HS 30 Days #60 tab 02/07/25 Nicotine 14Mg/24Hr Patch [Habitrol] 1 patch TRANSDERM DAILY patch 02/07/25 Paliperidone [Invega] 3 mg PO BID 30 Days #60 tab 02/07/25 Allergies Allergy/AdvReac Type Severity Reaction Status Date / Time No Known Allergies Allergy Verified 02/14/25 00:34 Review of Systems ROS Other: All systems not noted in ROS Statement are negative. <Mary De Souza - Last Filed: 02/12/25 22:57> ROS Other: All systems not noted in ROS Statement are negative. <Renetta Martinez - Last Filed: 02/16/25 16:20> ROS Statement: Those systems with pertinent positive or pertinent negative responses have been documented in the HPI. Past Medical History Past Medical History: No Reported History Additional Past Medical History / Comment(s): developmental delay History of Any Multi-Drug Resistant Organisms: None Reported Past Surgical History: Section Past Psychological History: Depression Smoking Status: Current every day smoker Past Alcohol Use History: None Reported Past Drug Use History: Marijuana <Mary De Souza - Last Filed: 02/12/25 22:57> General Exam Limitations: altered mental status General appearance: alert, in no apparent distress Head exam: Present: atraumatic, normocephalic, normal inspection Eye exam: Present: normal appearance, PERRL, EOMI. Absent: scleral icterus, con junctival injection, periorbital swelling Neurological exam: Present: alert, oriented X3 Psychiatric exam: Present: normal affect, normal mood, suicidal ideation. Absent: homicidal ideation Skin exam: Present: warm, dry, intact, normal color. Absent: rash <Mary De Souza - Last Filed: 02/12/25 22:57> Course Vital Signs 01/21/25 01/21/25 19:51 21:45 Temperature 97.8 F Pulse Rate 96 84 Respiratory 18 18 Rate Blood Pressure 132/75 95/61 O2 Sat by Pulse 96 100 Oximetry Medical Decision Making - Lab Data Result diagrams: 01/23/25 11:01/23/25 05:30 <Mary De Souza - Last Filed: 02/12/25 22:57> - Lab Data Result diagrams: 01/23/25 11:01/23/25 05:30 <Rossy Martinezah Lori - Last Filed: 02/16/25 16:20> - Medical Decision Making Was pt. sent in by a medical professional or institution (, PA, FERTILIZER SUPERVISOR, urgent care, hospital, or long-term...) When possible be specific @ -No Did you speak to anyone other than the patient for history (EMS, parent, family, police, friend...)? What history was obtained from this source @ -Patient's boyfriend supplemented history Did you review nursing and triage notes (agree or disagree)? Why? @ -I reviewed and agree with nursing and triage notes Were old charts reviewed (outside hosp., previous admission, EMS record, old EKG, old radiological studies, urgent care reports/EKG's, long-term records)? Report findings @ -No old charts were reviewed Differential Diagnosis (chest pain, altered mental status, abdominal pain women, abdominal pain men, vaginal bleeding, weakness, fever, dyspnea, syncope, headache, dizziness, GI bleed, back pain, seizure, CVA, palpatations, mental health, musculoskeletal)? @ -Differential Mental Health Depression, anxiety, bipolar, psychosis, schizophrenia, borderline personality, situational depression, adjustment disorder, behavioral disorder, brain tumor, malingering, substance abuse, encephalopathy, medication reaction, dementia, hypothyroidism, degenerative neurologic disorder, lupus.... This is not meant to be all-inclusive list EKG interpreted by me (3pts min.). @ -None X-rays interpreted by me (1pt min.). @ -None done CT interpreted by me (1pt min.). @ -None done U/S interpreted by me (1pt. min.). @ -None done What testing was considered but not performed or refused? (CT, X-rays, U/S, labs)? Why? @ -None What meds were considered but not given or refused? Why? @ -None Did you discuss the management of the patient with other professionals (prof essionals i.e. , PA, FERTILIZER SUPERVISOR, lab, RT, psych nurse, social welfare clerk, licensed physical therapist, teacher, bank operations officer, upper caser)? Give summary @ -No Was smoking cessation discussed for >3mins.? @ -No Was critical care preformed (if so, how long)? @ -No Were there social determinants of health that impacted care today? How? (Homelessness, low income, unemployed, alcoholism, drug addiction, transportation, low edu. Level, literacy, decrease access to med. care, assisted, rehab)? @ -No Was there de-escalation of care discussed even if they declined (Discuss DNR or withdrawal of care, Hospice)? DNR status @ -No What co-morbidities impacted this encounter? (DM, HTN, Smoking, COPD, CAD, Cancer, CVA, ARF, Chemo, Hep., AIDS, mental health diagnosis, sleep apnea, morbid obesity)? @ -None Was patient admitted / discharged? Hospital course, mention meds given and route, prescriptions, significant lab abnormalities, going to OR and other pertinent info. @ -34-year-old female presenting for suicidal ideation x 1 day. Patient endorses hearing voices in her head telling her to hurt herself. Patient does have a history of psychosis and hallucinations. No other medical complaints at this time. Patient is medically cleared to be seen by EPS. Case signed out to my ED attending Dr. Martinez at time of shift change pending EPS evaluation and disposition (Mary De Souza) Patient evaluated by EPS and requires admission (Renetta Martinez) - Lab Data Lab Results 01/21/25 01/22/25 Range/Units 21:18 10:35 Urine Opiates Screen Not Detected (NotDetected) Ur Oxycodone Screen Not Detected (NotDetected) Urine Methadone Screen Not Detected (NotDetected) Ur Barbiturates Screen Not Detected (NotDetected) U Tricyclic Antidepress Not Detected (NotDetected) Ur Phencyclidine Scrn Not Detected (NotDetected) Ur Amphetamines Screen Not Detected (NotDetected) U Methamphetamines Scrn Not Detected (NotDetected) U Benzodiazepines Scrn Not Detected (NotDetected) Urine Cocaine Screen Not Detected (NotDetected) U Marijuana (THC) Screen Detected H (NotDetected) SARS-CoV-2 (PCR) Not Detected (Not Detectd) Disposition Time of Disposition: 23:00 <Mary De Souza - Last Filed: 02/12/25 22:57> <Renetta Martinez - Last Filed: 02/16/25 16:20> Clinical Impression: Suicidal ideation Disposition: TRANSFER TO PSYCH HOSP/UNIT Condition: Stable
[2025-01-21 22:13] LABS: Amphetamine Screen,Urine Not Detected (NotDetected); Barbiturate Screen,Urine Not Detected (NotDetected); Benzodiazepines Screen,Urine Not Detected (NotDetected); Cocaine Screen,Urine Not Detected (NotDetected); Methadone Screen, Urine Not Detected (NotDetected); Opiate Screen,Urine Not Detected (NotDetected); Oxycodone Screen, Urine Not Detected (NotDetected); Phencyclidine Screen,Urine Not Detected (NotDetected); Tricyclic Antidepressant,Urine Not Detected (NotDetected); Urn Cannabinoid Scrn Detected (NotDetected)
[2025-01-22] MEDS ORDERED: MAGNESIUM HYDROXIDE 2,400 MG/30 ML CUP PO PRN (12:14)
[2025-01-22] MEDS ORDERED: MAG HYDROX/AL HYDROX/SIMETH 355 ML BOTTLE PO PRN (12:14)
[2025-01-22] MEDS ORDERED: ACETAMINOPHEN TAB 325 MG TAB PO PRN (12:14)
[2025-01-22] MEDS ORDERED: IBUPROFEN 600 MG TAB PO PRN (12:14)
[2025-01-22] MEDS ORDERED: LORazepam 1 MG TAB PO PRN (12:14)
[2025-01-22] MEDS ORDERED: LORazepam 2 MG/ML INJ IM PRN (12:14)
[2025-01-22] MEDS ORDERED: OLANZapine ODT 5 MG TAB PO PRN (12:17)
[2025-01-22] MEDS ORDERED: OLANZapine 10 MG VIAL IM PRN (12:17)
--- NOTE | 2025-01-22 14:05 | P.HP ---
Psychiatric H&P - . H&P Date: 01/22/25 History & Physical: Allergies Allergy/AdvReac Type Severity Reaction Status Date / Time No Known Allergies Allergy Verified 01/22/25 09:55 Vital Signs Temp 98.1 F 01/22/25 12:51 Pulse 69 01/22/25 12:51 Resp 18 01/21/25 21:45 BP 113/63 01/22/25 12:51 Pulse Ox 99 01/22/25 12:51 FiO2 Intake & Output 01/21/25 01/22/25 01/22/25 18:59 06:59 18:59 Weight 56.699 kg 62.142 kg Laboratory Last Values Urine Opiates Screen Not Detected (NotDetected) 01/21/25 21:18 Ur Oxycodone Screen Not Detected (NotDetected) 01/21/25 21:18 Urine Methadone Screen Not Detected (NotDetected) 01/21/25 21:18 Ur Barbiturates Screen Not Detected (NotDetected) 01/21/25 21:18 U Tricyclic Antidepress Not Detected (NotDetected) 01/21/25 21:18 Ur Phencyclidine Scrn Not Detected (NotDetected) 01/21/25 21:18 Ur Amphetamines Screen Not Detected (NotDetected) 01/21/25 21:18 U Methamphetamines Scrn Not Detected (NotDetected) 01/21/25 21:18 U Benzodiazepines Scrn Not Detected (NotDetected) 01/21/25 21:18 Urine Cocaine Screen Not Detected (NotDetected) 01/21/25 21:18 U Marijuana (THC) Screen Detected (NotDetected) H 01/21/25 21:18 SARS-CoV-2 (PCR) Not Detected (Not Detectd) 01/22/25 10:35 01/22/25 13:51 IDENTIFYING DATA: Patient is a 34-year-old female currently collecting disability living with her roommate HPI: Patient presented to the hospital complaining of auditory hallucinations command in nature telling her to hurt herself. She was recently discharged from a mental health unit in [place] and feels that the Risperidone 4 mg at night and 1 mg in the morning is not helpful. She notes that the auditory hallucinations that she is experiencing are inside/outside of her head, male, unfamiliar, come and go, and telling her to slice her throat. She denies any intent on doing this but the voices are causing disturbances. She notes some of the alleviating factors are listening to TV. She also notes smoking cannabis helps. She denies any visual hallucinations or paranoia. She notes that her depression and anxiety are 8/10 with 10 being worse. She notes that since she has started hearing the voice that she is not getting normal sleep and generally only gets 4 to 5 hours. She notes that her energy is fair. She notes that her appetite is normal. She notes that her concentration is fair. She denies any feelings of helplessness, hopelessness or worthlessness. She denies any crying or guilt or shame. She denies any suicidal or homicidal ideations. She denies any access to guns. Collateral information: Patient gave verbal permission to speak to her roommate Codi at [phone]. I spoke with Codi she notes that the patient started becoming more concerned about the auditory hallucinations causing problems. She notes a pattern of increased intensity. They went to [facility] to establish and things started getting worse. She notes that the patient stated that she needed to go to the emergency room and did not feel safe. Additionally Codi notes that she has not been sleeping normal. Review of psychiatric systems: Bipolar disorder-negative OCD-negative PTSD-negative Anxiety-patient suffers from chronic worrying, grinding her teeth, problems initiating sleep, muscle tension and nausea PAST PSYCHIATRIC HISTORY: Patient has a history of Unspecified psychosis, Intellectual disabled. The patient is currently on Risperdal 4 mg at night and 1 mg in the morning. She also notes that she is on Melatonin for sleep. The patient has 1 previous diagnosis in [place] a couple of weeks ago. Patient is establishing with [facility]. The patient notes 1 prior suicide attempt by trying to cut her wrist a year ago. Past psychotropics include anxiety meds and melatonin. She denies any physical, verbal or sexual abuse growing up. She denies any history of legal problems. PMH: as per ER note ALLERGIES: as per EMR CHEMICAL DEPENDENCY HISTORY: Caffeine-positive Tobacco-1 pack/day Alcohol-negative Cannabis-every few days Cocaine-last use on her birthday Methamphetamines-negative Opiates-negative FAMILY PSYCHIATRIC/SUBSTANCE USE HISTORY: The patient notes that her brother and sister suffer from an unknown mental health problem. SOCIAL HISTORY: Patient was born and raised in in [place] and notes that her childhood was "a loss" when her mother at the age of 13. She notes that she completed high school but was in special classes. She has been once and has 1 child from that marriage. She is currently living with a roommate and in a relationship with her boyfriend. She collects disability. She notes that she is sikh. She denies any service. MENTAL STATUS EXAM: General Appearance: Patient appears to be her stated age is alert, directable, and attempts to cooperate. Patient appears to have fair hygiene and grooming. Behavior: Patient is seated without any agitated behavior. She presented flat and hesitant on answering questions Speech: Patient's speech is fluent and nonpressured. Mood/Affect: Patient reports their mood is Moderately depressed, affect is congruent and constricted. Suicidality/Homicidality: Patient denies having any homicidal ideation intent or plan. [Denies any suicidal ideations intent or plan] Perceptions: Patient denies any visual hallucinations and the patient notes that she is having auditory hallucinations. Though content/process: There is no evidence of any delusional thought content and thought process is linear and goal-directed. Memory and concentration: AOX3, grossly intact for the purposes of this session. Can spell "WORLD" backwards Judgment and insight: Poor STRENGTHS/WEAKNESSES: strength is that patient is resilient. Weakness is that patient has poor judgment and is impulsive Diagnosis: Unspecified psychotic disorder R/O psychotic disorder due to substances Intellectual disability Generalized anxiety disorder Cannabis use disorder Cocaine use disorder Tobacco use disorder Assessment: 34-year-old female presenting having problems with psychosis and recently discharged a couple of weeks ago from mental health psych unit. It appears that the Risperidone that she was prescribed there is not working to its full capacity. There are some concerns about her substance use specifically cannabis but she has been smoking since the age of 15. There was some recent crack cocaine use during her birthday that might also explain some of the psychotic symptoms. At this time we will rule it as an unspecified psychotic disorder. She fits criteria for Generalized anxiety disorder. Patient will be admitted for safety to self as well as others. Additionally medication changes will be made to help. PLAN: -Patient is admitted under voluntary status to MHU for stabilization of psychiatric symptoms and safety. Patient has signed adult voluntary form and medication consent and is placed in patient's chart. -Medications : Start Invega 3 mg take 1 tablet by mouth at night for psychosis Melatonin take as needed for sleep -Ativan and Zyprexa Zydis PRN for agitation/aggression -Patient was counselled on substance abuse and desired to cut back on use -Patient was informed of the risks, benefits and side effects of the medication and patient verbally consented to taking the medications. Patient signed med c onsent form and was placed in chart. -Internal Medicine consult to perform medical evaluation and physical. -NRT -nicotine patch -SW on board for discharge planning. Encourage patient to participate in groups to work on coping skills.
[2025-01-22] MEDS: NICOTINE GUM (POLACRILEX) 2 MG GUM BUCCAL PRN (14:49)
[2025-01-22] MEDS: NICOTINE 14MG/24HR PATCH TRANSDERM SCH (15:39)
[2025-01-22 16:15] LABS: Appearance,Urine Clear (Clear); Bilirubin,Urine Negative (Negative); Blood,Urine Negative (Negative); Color,Urine Colorless; Glucose,Urine (UA) Negative (Negative); Ketones,Urine Negative (Negative); Leukocyte Esterase,Urine Negative (Negative); Nitrite,Urine Negative (Negative); PH, Urine 6.5 (5.0-8.0); Protein,Urine Negative (Negative); Specific Gravity,Urine 1.004 (1.001-1.035); Urobilinogen,Urine <2.0 mg/dL (<2.0)
[2025-01-22] MEDS: MELATONIN 5 MG TABLET PO SCH (20:15)
[2025-01-22] MEDS: PALIPERIDONE 3 MG TAB.ER.24 PO SCH (20:16)
[2025-01-22] MEDS ORDERED: risperiDONE 2 MG TAB PO SCH (21:00)
[2025-01-22] MEDS ORDERED: risperiDONE 1 MG TAB PO SCH (21:00)
[2025-01-23 05:53] LABS: ALT 16 U/L (4-34); AST 15 U/L (14-36); African American GFR (CKD) >90 (>60 ml/min/1.73 sqM); Albumin 3.6 g/dL (3.5-5.0); Alkaline Phosphatase 49 U/L (38-126); Anion Gap 5 mmol/L; Blood Urea Nitrogen 16 mg/dL (7-17); Calcium 9.4 mg/dL (8.4-10.2); Carbon Dioxide 26 mmol/L (22-30); Chloride 104 mmol/L (98-107); Glucose 91 mg/dL (74-99); Non-African American GFR(CKD) >90 (>60 ml/min/1.73 sqM); Potassium 4.4 mmol/L (3.5-5.1); Sodium 135 mmol/L (137-145); Total Bilirubin 0.6 mg/dL (0.2-1.3)
--- NOTE | 2025-01-23 11:11 | P.PN ---
Progress Note - Text Progress Note Date: 01/23/25 Interval History: Patient was seen wandering the hallways and was directable and agreeable to sp rickey with story writer in the office. The patient notes that she feels "a lot better". She notes that she no longer has the auditory hallucinations and was able to sleep last night. She notes that she is not having any shakes. She denies any ongoing depression or anxiety. She notes that she is her sleep, energy, appetite and concentration are normal. She will plans to return to her friend's Codi's house on discharge. Patient denies any side effects from the medications and has been compliant with meds. Mental Status Exam: General Appearance: Patient appears to be stated age is alert, directable, and cooperative. Behavior: Patient is calmly seated without any agitated behavior. Speech: Patient's speech is fluent and nonpressured. Mood/Affect: Mood is improving mildly, affect is congruent and constricted. Suicidality/Homicidality: Patient denies having any suicidal or homicidal ideation intent or plan. Perceptions: Patient denies any visual hallucinations and denies any auditory hallucinations Though content/process: There is no evidence of any delusional thought content and thought process is linear and goal-directed. Memory and concentration: AOX3, grossly intact for the purposes of this session Judgment and insight: Improving mildly Diagnosis: Unspecified psychotic disorder R/O psychotic disorder due to substances Intellectual disability Generalized anxiety disorder Cannabis use disorder Cocaine use disorder Tobacco use disorder Aims = 0 Assessment: I gave the patient a lecture on the use of cannabis and its causes for psychosis. Patient has noted that she wants to cut down. Additionally, it is noted that her auditory hallucinations have resolved with the start of the Invega we will continue the medication to see if it sticks. Continue hospitalization. PLAN: -Patient is admitted under voluntary status to MHU for stabilization of psychiatric symptoms and safety. Patient has signed adult voluntary form and medication consent and is placed in patient's chart. -Medications : Continue Invega 3 mg take 1 tablet by mouth at night for psychosis Melatonin take as needed for sleep -Ativan and Zyprexa Zydis PRN for agitation/aggression -Patient was counselled on substance abuse and desired to cut back on use -Patient was informed of the risks, benefits and side effects of the medication and patient verbally consented to taking the medications. Patient signed med consent form and was placed in chart. -Internal Medicine consult to perform medical evaluation and physical. -NRT -nicotine patch -SW on board for discharge planning. Encourage patient to participate in groups to work on coping skills.
[2025-01-23 11:51] LABS: Basophils # (A) 0.06 10*3/uL (0.00-0.10); Basophils % (A) 0.6 %; Eosinophils # (A) 0.08 10*3/uL (0.04-0.35); Eosinophils % (A) 0.8 %; HCT 38.1 % (37.2-46.3); HGB 12.6 g/dL (12.0-15.0); Lymphocytes # (A) 2.09 10*3/uL (0.90-5.00); Lymphocytes % (A) 21.3 %; MCH 29.5 pg (27.0-32.0); MCHC 33.1 g/dL (32.0-37.0); MCV 89.2 fL (80.0-97.0); Mean Platelet Volume 10.7 fL (9.5-12.2); Monocytes # (A) 0.65 10*3/uL (0.20-1.00); Monocytes % (A) 6.6 %; Neutrophils # (A) 6.92 10*3/uL (1.80-7.70); Neutrophils % (A) 70.4 %; Platelet Count 249 10*3/uL (140-440); RBC 4.27 10*6/uL (4.10-5.20); RDW 12.8 % (11.5-14.5); WBC 9.83 10*3/uL (4.50-10.00)
--- NOTE | 2025-01-23 14:59 | P.MDCNMH ---
History of Present Illness H&P Date: 01/23/25 History of Presenting Illness: Patient is a 34-year-old female with a past medical history of intellectual disability, depression and polysubstance abuse polysubstance abuse with crack cocaine, marijuana and methamphetamines. Patient reports longstanding history of polysubstance abuse with crack cocaine, methamphetamines, and marijuana. Denies any IV drug use, She reports she last used methamphetamines and crack cocaine on 12/27/2024 and has been smoking marijuana daily. She reports in addition she smokes 1 pack of cigarettes daily. She is currently admitted under psychiatric team to inpatient mental health unit for reports of hallucinations and unspecified psychiatric disorder. We were consulted for medical evaluation and completion of medical H&P. Patient seen and fully evaluated in mental health unit. She was ambulatory with a steady gait. She currently denies having any complaints including headache, lightheadedness, dizziness, chest pain, palpitations, shortness of breath, abdominal pain, nausea, vomiting, difficulties with or changes in urinary function, or experiencing any numbness/tingling/weakness/swelling in her extremities. She denies having suicidal or homicidal ideations. Review of systems: Pertinent positives and negatives as discussed in HPI, a complete review of systems was performed and all other systems are negative. Physical exam: Vital signs reviewed and stable. General: Nontoxic, no distress and appears stated age. Derm: Skin warm and dry, normal coloration for ethnicity. Head: Atraumatic, normocephalic and symmetric. Eyes: EOM's intact, no lid lag, and anicteric sclera Mouth: no lip lesions, mucus membranes moist Cardiovascular: regular rate and rhythm with normal S1S2, no murmur, positive posterior tibial pulses bilaterally, and cap refill < 2 seconds. Lungs: Respirations even, regular, and unlabored on room air. Lungs CTA b ilaterally, no rhonchi, no rales, no wheezing, and no accessory muscle usage. Abdominal: soft, nontender to palpation, no guarding, no appreciable organomegaly Ext: ROM intact. No gross muscle atrophy, no edema, no contractures Neuro: Speech clear, face symmetrical and CN II-XII grossly intact with no noted focal neuro deficits Psych: Alert and oriented to person, place, time, and situation. Appropriate and pleasant affect. Assessment and Plan of Care: Polysubstance abuse -Patient reports longstanding history of polysubstance abuse with crack cocaine, methamphetamines, and marijuana. She reports she last used methamphetamines and crack cocaine on 12/27/2024 and has been smoking marijuana daily. - Recommended total cessation of use, patient verbalized understanding. Monitor for any signs/symptoms of withdrawal. Nicotine dependence Patient reports smoking 1 pack of cigarettes daily. Recommended smoking cessation. Continue nicotine patch 14 mg daily. Unspecified psychiatric disorder with hallucinations Depression Management by primary admitting psychiatric team. Maintain safe and supportive care. Elopement precautions. Data and imaging reviewed: Labs completed and reviewed. CBC unremarkable with WBC count of 9.83, hemoglobin 12.6, and platelet count of 249. BMP showing sodium 135, Potassium 4.4, chloride 104, bicarb 26, and anion gap of 5. Renal function unremarkable. Blood glucose 91. Liver profile normal findings. TSH 2.300. Urinalysis negative for blood or infection. Urine hCG negative for . Urine drug screen positive for marijuana. COVID PCR negative. Vitals reviewed. Blood pressure 108/61, heart rate 82, respiratory rate 16, t emp 97.2 F, and SpO2 of 99% on room air. Thank you for allowing us to participate in the care of this pleasant patient. Do not hesitate to contact us with questions. Someone can be reached from the [facility] hospitalist group all hours of the day at [phone] or via [employer]. Patient was seen independently by Nurse Practitioner. This document was prepared using [employer] dictation software. Please allow for errors in reservations sales agent while rare they do occur. Guy Hurst NP rendered care for this patient independently, reviewed the findings and plan as documented in the note above and agree with plan. I did not physically speak with or examine the patient on this date. Past Medical History Past Medical History: No Reported History Additional Past Medical History / Comment(s): developmental delay History of Any Multi-Drug Resistant Organisms: None Reported Past Surgical History: Section Past Anesthesia/Blood Transfusion Reactions: No Reported Reaction Past Psychological History: Depression Smoking Status: Current every day smoker Past Alcohol Use History: None Reported Past Drug Use History: Marijuana Medications and Allergies Home Medications Medication Instructions Recorded Confirmed Type Melatonin 5 mg PO HS 01/22/25 01/22/25 History risperiDONE 1 mg PO HS 01/22/25 01/22/25 History risperiDONE 4 mg PO HS 01/22/25 01/22/25 History Allergies Allergy/AdvReac Type Severity Reaction Status Date / Time No Known Allergies Allergy Verified 01/22/25 09:55 Physical Exam Vitals: Vital Signs Temp Pulse Resp BP Pulse Ox 01/22/25 21:42 97.2 F L 82 16 108/61 99 01/22/25 12:51 98.1 F 69 113/63 99 Cranial Nerve Examination - Cranial Nerves Cranial Nerve II- Optic: Intact Cranial Nerve III- Oculomotor: Intact Cranial Nerve IV- Trochlear: Intact Cranial Nerve V- Trigeminal: Intact Cranial Nerve - Abducens: Intact Cranial Nerve VII- Facial: Intact Cranial Nerve VIII- Auditory: Intact Cranial Nerve IX- Glossopharyngeal: Intact Cranial Nerve X- Vagus: Intact Cranial Nerve XI- Accessory: Intact Cranial Nerve XII- Hypoglossal: Intact Results CBC & Chem 7: 01/23/25 11:26 01/23/25 05:30 Labs: Abnormal Lab Results - Last 24 Hours (Table) 01/23/25 Range/Units 05:30 Sodium 135 L (137-145) mmol/L Total Protein 6.0 L (6.3-8.2) g/dL
[2025-01-23 16:10] LABS: Chol/HDL Ratio 3.29 Ratio; LDL Cholesterol,Calculated 130.7 mg/dL (0.0-131.0); VLDL Calculation 18.16 mg/dL (5.00-40.00)
--- NOTE | 2025-01-24 12:17 | P.PN ---
Progress Note - Text Progress Note Date: 01/24/25 Interval History: Patient was seen today for psychiatric follow up. She was wandering the hallw ays agreeable to try it in the office. She was fairly concrete, fairly focused on discharge. States that she was hearing voices before coming to the hospital, claims that she is tolerating medications fairly well wants to continue taking it. States that she follows up at [facility]. Claims that she has been trying to go to groups participating in the milieu. Has been showering, eating well. Denying any depression or anxiety at this time. Denies any auditory or visual hallucinations denies any suicidal Lilian ideations intent or plan Mental Status Exam: General Appearance: Patient appears to be stated age is alert, directable, and cooperative. Behavior: Patient is calmly seated without any agitated behavior. Fairly concrete, superficial Speech: Patient's speech is fluent and nonpressured. Mood/Affect: Mood is improving mildly, affect is congruent and constricted. Suicidality/Homicidality: Patient denies having any suicidal or homicidal ideation intent or plan. Perceptions: Patient denies any visual hallucinations and denies any auditory hallucinations Though content/process: There is no evidence of any delusional thought content and thought process is linear and goal-directed. Focused on discharge, minimizing Memory and concentration: AOX3, grossly intact for the purposes of this session Judgment and insight: Limited, improving mildly Diagnosis: Unspecified psychotic disorder Intellectual disability Generalized anxiety disorder Cannabis use disorder Cocaine use disorder Nicotine dependence PLAN: -Patient is admitted under voluntary status to MHU for stabilization of psychiatric symptoms and safety. Patient has signed adult voluntary form and medication consent and is placed in patient's chart. -Medications : Invega 3 mg take 1 tablet by mouth at night for psychosis, will offer transition to long-acting injection if patient agrees. Melatonin take as needed for sleep -Ativan and Zyprexa Zydis PRN for agitation/aggression -NRT -nicotine patch - on board for discharge planning. Encourage patient to participate in groups to work on coping skills. Hopeful discharge Friday versus if patient is improving.
--- NOTE | 2025-01-25 10:30 | P.PN ---
Progress Note - Text Progress Note Date: 01/25/25 Interval History: Patient was seen today for psychiatric follow up. Patient was seen in the [facility] with other patients playing cards. She claims that she is feeling a bit better today. She offered no overnight complaints states that she slept about 10 hours. Has been eating well showering. She continues to be fairly concrete and also focused on discharge. claims that she is tolerating medications fairly well wants to continue taking it. Claims that she has been trying to go to groups participating in the milieu. Denying any depression or anxiety at this time. Denies any auditory or visual hallucinations denies any suicidal Lilian ideations intent or plan Mental Status Exam: General Appearance: Patient appears to be stated age is alert, directable, and cooperative. Behavior: Patient is calmly seated without any agitated behavior. Fairly cooperative today Speech: Patient's speech is fluent and nonpressured. Stewart, improving Mood/Affect: Mood is improving mildly, affect is congruent and constricted. Improving mildly Suicidality/Homicidality: Patient denies having any suicidal or homicidal ideation intent or plan. Perceptions: Patient denies any visual hallucinations and denies any auditory hallucinations Though content/process: There is no evidence of any delusional thought content and thought process is linear and goal-directed. Focused on discharge, improving mildly Memory and concentration: AOX3, grossly intact for the purposes of this session Judgment and insight: Limited, improving mildly Diagnosis: Unspecified psychotic disorder Intellectual disability Generalized anxiety disorder Cannabis use disorder Cocaine use disorder Nicotine dependence PLAN: -Patient is admitted under voluntary status to MHU for stabilization of psychiatric symptoms and safety. Patient has signed adult voluntary form and medication consent and is placed in patient's chart. -Medications : Invega 3 mg take 1 tablet by mouth at night for psychosis Melatonin take as needed for sleep -Ativan and Zyprexa Zydis PRN for agitation/aggression -NRT -nicotine patch -SW on board for discharge planning. Encourage patient to participate in groups to work on coping skills. Hopeful discharge tomorrow if patient is improving.
[2025-01-25 21:31] VITALS: RESP 16
[2025-01-26 08:39] VITALS: BP 102/60; PULSE 71; TEMP 97.7
--- NOTE | 2025-01-26 11:12 | P.DS ---
Providers Date of admission: 01/22/25 11:53 Expected date of discharge: 01/26/25 Attending physician: Darryl Hoang MD Consults: 01/22/25 12:14 Consult Physician Routine Consulting Provider: Conner Physician Consult Reason/Comments: H&P and medical Do you want consulting provider notified?: Yes Primary care physician: Stated None - Discharge Diagnosis(es) (1) Psychosis Current Visit: Yes Status: Acute Priority: High (2) Intellectual disability Current Visit: Yes Status: Acute Priority: Medium (3) Generalized anxiety disorder Current Visit: Yes Status: Acute Priority: Medium (4) Cocaine use disorder Current Visit: Yes Status: Acute Priority: Medium (5) Nicotine dependence Current Visit: Yes Status: Acute Priority: Low (6) Cannabis use disorder Current Visit: Yes Status: Acute Priority: Medium Hospital Course: Admission HPI: Admission note was completed by Dr Mcdonald "patient is a 34-year-old female currently collecting disability living with her roommate. Patient presented to the hospital complaining of auditory hallucinations command in nature telling her to hurt herself. She was recently discharged from a mental health unit in [place] and feels that the Risperidone 4 mg at night and 1 mg in the morning is not helpful. She notes that the auditory hallucinations that she is experiencing are inside/outside of her head, male, unfamiliar, come and go, and telling her to slice her throat. She denies any intent on doing this but the voices are causing disturbances. She notes some of the alleviating factors are listening to TV. She also notes smoking cannabis helps. She denies any visual hallucinations or paranoia. She notes that her depression and anxiety are 8/10 with 10 being worse. She notes that since she has started hearing the voice that she is not getting normal sleep and generally only gets 4 to 5 hours. She notes that her energy is fair. She notes that her appetite is normal. She notes that her concentration is fair. She denies any feelings of helplessness, hopelessness or worthlessness. She denies any crying or guilt or shame. She denies any suicidal or homicidal ideations. She denies any access to guns." Hospital course: Upon admission to the unit patient was directable and agreeable to commence treatment and signed adult voluntary form. Patient was initially psychotic, bizarre however with time and treatment patient got along well with other patients on the unit and followed unit protocol. Patient was compliant with the medications and denied any side effects throughout hospital course. Patient was started on Invega p.o. 3 mg nightly for psychosis/mood stabilization, melatonin nightly for sleep. Patient spoke of her stressors and engaged in therapy both group/activity therapy. Patient was also seen by medical team for history and physical exam. Throughout the course of the hospitalization patient gradually improved with regards to mood, anxiety, psychosis, sleep and returned back to their baseline level of functioning. On the day of discharge patient denied any suicidal or homicidal ideations intent or plan denied any auditory or visual hallucinations. Patient endorsed wanting to live for their health and family. The patient denied any access to guns or weapons. Patient denied any paranoia and did not endorse any delusions. Patient does have a significant history of substance abuse and was counseled on abstaining from all substances including alcohol and marijuana. Patient was offered however declined inpatient substance-abuse rehab. Patient elected to do outpatient substance use treatment program through their outpatient provider. Patient was also counseled on the medications and need for regular compliance and was encouraged to follow-up with their outpatient appointment for mental health and also for primary care. Patient's guardians were notified of patient's discharge they are okay with her going back to live with her friend upon discharge and follow-up with [facility]. Mental status exam: General Appearance: Patient appears to be stated age is alert, pleasant, and cooperative. Patient is in no acute distress and has improved hygiene and grooming Behavior: Patient is calmly seated without any agitated behavior. Speech: Patient's speech is fluent and nonpressured. Mood/Affect: Patient reports their mood is "better", affect is congruent and euthymic. Suicidality/Homicidality: Patient denies having any suicidal or homicidal ideation intent or plan. Perceptions: Patient denies any auditory or visual hallucinations. Though content/process: There is no evidence of any delusional thought content and thought process is linear and goal-directed. Memory and concentration: AOX3, grossly intact for the purposes of this session. Can spell "WORLD" backwards correctly. Judgment and insight: Chronically limited, improved with guarded prognosis Impression: Psychosis unspecified Intellectual disability Generalized anxiety disorder Cocaine use disorder Cannabis use disorder Nicotine dependence Plan: -Continue with discharge today as patient has improved and stabilized psychiatrically and is not currently an imminent threat to themself and/or others. Patient will remain at chronically elevated risk for harm to self and/or others due to their impulsivity. -Continue medications: Invega p.o. 3 mg nightly for psychosis/mood stabilization, melatonin nightly for insomnia -Patient was counseled on the need for medication compliance and appropriate follow-up at mental health and also primary care for medical issues. Patient verbalized understanding and agreed. -Social work to help coordinate patients discharge today. also to ensure safe home environment that guns/weapons are either removed from the home or locked away. Social work also to arrange for patients follow up appointments with [facility] for psychiatric care along with follow up with primary care provider. -Patient counseled on abstaining from recreational drugs and marijuana and alcohol. Was informed/educated on the adverse effects on their physical and mental health. Patient verbally agreed and understood. Patient was offered substance abuse treatment however declined at this time. -Patient was instructed to return to the hospital or seek immediate medical care if their psychiatric or medical symptoms do worsen or reoccur. Allergies Allergy/AdvReac Type Severity Reaction Status Date / Time No Known Allergies Allergy Verified 01/22/25 09:55 Laboratory Results WBC 9.83 10*3/uL (4.50-10.00) 01/23/25 11: RBC 4.27 10*6/uL (4.10-5.20) 01/23/25 11:26 Hgb 12.6 g/dL (12.0-15.0) 01/23/25 11: Hct 38.1 % (37.2-46.3) 01/23/25 11:26 MCV 89.2 fL (80.0-97.0) 01/23/25 11:26 MCH 29.5 pg (27.0-32.0) 01/23/25 11: MCHC 33.1 g/dL (32.0-37.0) 01/23/25 11:26 Plt Count 249 10*3/uL (140-440) 01/23/25 11: MPV 10.7 fL (9.5-12.2) 01/23/25 11: Immature Gran % (Auto) 0.3 % 01/23/25 11: Neutrophils % 70.4 % 01/23/25 11:26 Lymphocytes % 21.3 % 01/23/25 11:26 Monocytes % 6.6 % 01/23/25 11:26 Eosinophils % 0.8 % 01/23/25 11: Basophils % 0.6 % 01/23/25 11:26 Immature Gran # 0.03 10*3/uL (0.00-0.04) 01/23/25 11: Neutrophils # 6.92 10*3/uL (1.80-7.70) 01/23/25 11:26 Lymphocytes # 2.09 10*3/uL (0.90-5.00) 01/23/25 11:26 Monocytes # 0.65 10*3/uL (0.20-1.00) 01/23/25 11: Eosinophils # 0.08 10*3/uL (0.04-0.35) 01/23/25 11: Basophils # 0.06 10*3/uL (0.00-0.10) 01/23/25 11:26 Sodium 135 mmol/L (137-145) L 01/23/25 05:30 Potassium 4.4 mmol/L (3.5-5.1) 01/23/25 05:30 Chloride 104 mmol/L (98-107) 01/23/25 05:30 Carbon Dioxide 26 mmol/L (22-30) 01/23/25 05:30 Anion Gap 5 mmol/L 01/23/25 05:30 BUN 16 mg/dL (7-17) 01/23/25 05:30 Creatinine 0.69 mg/dL (0.52-1.04) 01/23/25 05:30 Est GFR (CKD-EPI)AfAm >90 (>60 ml/min/1.73 sqM) 01/23/25 05:30 Est GFR (CKD-EPI)NonAf >90 (>60 ml/min/1.73 sqM) 01/23/25 05:30 Glucose 91 mg/dL (74-99) 01/23/25 05:[address] Glu mg/dL 108 mg/dL 01/23/25 11:26 Hemoglobin A1c 5.4 % (<=6.0) 01/23/25 11:26 Calcium 9.4 mg/dL (8.4-10.2) 01/23/25 05:30 Total Bilirubin 0.6 mg/dL (0.2-1.3) 01/23/25 05:30 AST 15 U/L (14-36) 01/23/25 05:30 ALT 16 U/L (4-34) 01/23/25 05:30 Alkaline Phosphatase 49 U/L (38-126) 01/23/25 05:30 Total Protein 6.0 g/dL (6.3-8.2) L 01/23/25 05:30 Albumin 3.6 g/dL (3.5-5.0) 01/23/25 05:30 Triglycerides 90.80 mg/dL (0.00-149.00) 01/23/25 05:30 Cholesterol 214.00 mg/dL (0.00-200.00) H 01/23/25 05:30 LDL Cholesterol, Calc 130.7 mg/dL (0.0-131.0) 01/23/25 05:30 VLDL Cholesterol, Calc 18.16 mg/dL (5.00-40.00) 01/23/25 05:30 HDL Cholesterol 65.10 mg/dL (40.00-60.00) H 01/23/25 05:30 Cholesterol/HDL Ratio 3.29 Ratio 01/23/25 05: TSH 2.300 mIU/L (0.465-4.680) 01/23/25 05:30 Urine Color Colorless 01/22/25 14:04 Urine Appearance Clear (Clear) 01/22/25 14:04 Urine pH 6.5 (5.0-8.0) 01/22/25 14:04 Ur Specific Leo 1.004 (1.001-1.035) 01/22/25 14:04 Urine Protein Negative (Negative) 01/22/25 14:04 Urine Glucose (UA) Negative (Negative) 01/22/25 14:04 Urine Ketones Negative (Negative) 01/22/25 14:04 Urine Blood Negative (Negative) 01/22/25 14:04 Urine Nitrite Negative (Negative) 01/22/25 14:04 Urine Bilirubin Negative (Negative) 01/22/25 14:04 Urine Urobilinogen <2.0 mg/dL (<2.0) 01/22/25 14:04 Ur Leukocyte Esterase Negative (Negative) 01/22/25 14:04 Urine HCG, Qual Not Detected (Not Detectd) 01/22/25 14:04 Urine Opiates Screen Not Detected (NotDetected) 01/21/25 21:18 Ur Oxycodone Screen Not Detected (NotDetected) 01/21/25 21:18 Urine Methadone Screen Not Detected (NotDetected) 01/21/25 21:18 Ur Barbiturates Screen Not Detected (NotDetected) 01/21/25 21:18 U Tricyclic Antidepress Not Detected (NotDetected) 01/21/25 21:18 Ur Phencyclidine Scrn Not Detected (NotDetected) 01/21/25 21:18 Ur Amphetamines Screen Not Detected (NotDetected) 01/21/25 21:18 U Methamphetamines Scrn Not Detected (NotDetected) 01/21/25 21:18 U Benzodiazepines Scrn Not Detected (NotDetected) 01/21/25 21:18 Urine Cocaine Screen Not Detected (NotDetected) 01/21/25 21:18 U Marijuana (THC) Screen Detected (NotDetected) H 01/21/25 21:18 SARS-CoV-2 (PCR) Not Detected (Not Detectd) 01/22/25 10:35 Vital Signs Temp 97.7 F 01/26/25 08:38 Pulse 71 01/26/25 08:38 Resp 16 01/26/25 08:38 BP 102/60 01/26/25 08:38 Pulse Ox 100 01/26/25 08:38 FiO2 Patient Condition at Discharge: Stable Plan - Discharge Summary New Discharge Prescriptions: New Paliperidone [Invega] 3 mg PO HS 30 Days #30 tab Nicotine 14Mg/24Hr Patch [Habitrol] 1 patch TRANSDERM DAILY 14 Days #14 patch Melatonin 5 mg PO HS 30 Days #30 tab Discontinued risperiDONE 1 mg PO HS risperiDONE 4 mg PO HS Melatonin 5 mg PO HS Discharge Medication List Melatonin 5 mg PO HS 30 Days #30 tab 01/26/25 [Rx] Nicotine 14Mg/24Hr Patch [Habitrol] 1 patch TRANSDERM DAILY 14 Days #14 patch 01/26/25 [Rx] Paliperidone [Invega] 3 mg PO HS 30 Days #30 tab 01/26/25 [Rx] Follow up Appointment(s)/Referral(s): [facility]Other[facility] - [address] [facility] [facility] [Outside] - 01/27/25 1:00 pm (01/27/2025 1:00PM - 2:00PM ATILIOKATE NATO 02/03/2025 1:30PM - 2:30PM JENNIE CHRISTOPHER ) Patient Instructions/Handouts: How to Stop Smoking (DC), Psychotic Disorder (DC) Activity/Diet/Wound Care/Special Instructions: Avoid the use of street drugs and alcohol. Take all medications as prescribed. When you are in need of refills on your medications, please contact your medical provider and/or outpatient psychiatrist/provider to have this done. Please go to your scheduled outpatient appointment for aftercare treatment. If symptoms return or become worse, call the crisis line at and/or go to the nearest emergency room for evaluation. National Suicide Hotline [address] [facility] confidentiality statement: "The information contained in this communication, including attachments, is confidential, may be privileged, and is intended only for the use of the named recipient(s). Unauthorized use, disclosure, forwarding or copying is strictly prohibited and may be unlawful. If you have received this communication in error, please notify me IMMEDIATELY at the phone number or pager listed above. Discharge Disposition: HOME SELF-CARE
== END 2025-01-26 12:16 | disposition home or self-care (01) | DRG 750 ==
LOC: EC 19:46 → 3MHU 01-22 11:53
PROVIDERS: ADMIT Psychiatry & Neurology Psychiatry; ATTEND Psychiatry & Neurology Psychiatry
DX: F29 Unspecified psychosis not due to a substance or known physiological condition (principal); F14.10 Cocaine abuse, uncomplicated; F15.10 Other stimulant abuse, uncomplicated; Z91.51 Personal history of suicidal behavior; F12.10 Cannabis abuse, uncomplicated; F17.210 Nicotine dependence, cigarettes, uncomplicated; F32.A Depression, unspecified; F41.1 Generalized anxiety disorder; F79 Unspecified intellectual disabilities; G47.00 Insomnia, unspecified; R45.1 Restlessness and agitation; Z71.51 Drug abuse counseling and surveillance of drug abuser
CPT/HCPCS: 80053; 80061; 80306; 81003; 81025; 82075; 83036; 84443; 85025; 87635; 99285

== ENCOUNTER 2025-02-02 13:09 | Inpatient (IN) | payer MEDICAID, OTHER ==
--- NOTE | 2025-02-02 13:44 | ED ---
General Adult HPI - General Chief complaint: Psychiatric Symptoms Stated complaint: Mental Health Eval. Time Seen by Provider: 02/02/25 13:15 Source: patient, EMS, RN notes reviewed, old records reviewed Mode of arrival: EMS - History of Present Illness Initial comments: This is a 34-year-old female who presents to the emergency department stating that she is hearing voices that tell her to hurt herself and sometimes other people. Patient states she does not want to but she think she is going to get to the point where she might try something. She states she does have access to knives. Patient denies any physical complaints today. Patient is not sure what she has been diagnosed with as far as mental health in the past. - Related Data Previous Rx's Medication Instructions Recorded Melatonin 5 mg PO HS 30 Days #30 tab 01/26/25 Nicotine 14Mg/24Hr Patch [Habitrol] 1 patch TRANSDERM DAILY 14 Days 01/26/25 #14 patch Paliperidone [Invega] 3 mg PO HS 30 Days #30 tab 01/26/25 Allergies Allergy/AdvReac Type Severity Reaction Status Date / Time No Known Allergies Allergy Verified 02/02/25 14:40 Review of Systems ROS Statement: Those systems with pertinent positive or pertinent negative responses have been documented in the HPI. ROS Other: All systems not noted in ROS Statement are negative. Past Medical History Past Medical History: No Reported History Additional Past Medical History / Comment(s): developmental delay History of Any Multi-Drug Resistant Organisms: None Reported Past Surgical History: Section Past Anesthesia/Blood Transfusion Reactions: No Reported Reaction Past Psychological History: Depression Smoking Status: Current every day smoker Past Alcohol Use History: None Reported Past Drug Use History: Marijuana General Exam - General Exam Comments Initial Comments: GENERAL: Patient is well-developed and well-nourished. Patient is nontoxic and well- hydrated and is in mild distress. ENT: Neck is soft and supple. No significant lymphadenopathy is noted. Oropharynx is clear. Moist mucous membranes. Neck has full range of motion without eliciting any pain. EYES: The sclera were anicteric and conjunctiva were pink and moist. Extraocular movements were intact and pupils were equal round and reactive to light. Eyelids were unremarkable. PULMONARY: Unlabored respirations. Good breath sounds bilaterally. No audible rales rhonchi or wheezing was noted. CARDIOVASCULAR: There is a regular rate and rhythm without any murmurs gallops or rubs. ABDOMEN: Soft and nontender with normal bowel sounds. SKIN: Skin is clear with no lesions or rashes and otherwise unremarkable. NEUROLOGIC: Patient is alert and oriented x3. Cranial nerves II through XII are grossly intact. Motor and sensory are also intact. Normal speech, volume and content. Symmetrical smile. MUSCULOSKELETAL: Normal extremities with adequate strength and full range of motion. LYMPHATICS: No significant lymphadenopathy is noted PSYCHIATRIC: Patient states she is hearing voices and they are telling to hurt herself and sometimes other people. Course Vital Signs 02/02/25 13:13 Temperature 98.1 F Pulse Rate 68 Respiratory 14 Rate Blood Pressure 124/71 O2 Sat by Pulse 100 Oximetry Medical Decision Making - Medical Decision Making Was pt. sent in by a medical professional or institution (MIGUEL Irvin, SUPERVIS[employer] HOUSECLEAN[employer], urgent care, hospital, or jail...) When possible be specific @ -No Did you speak to anyone other than the patient for history (EMS, parent, family, police, friend...)? What history was obtained from this source @ -No Did you review nursing and triage notes (agree or disagree)? Why? @ -I reviewed and agree with nursing and triage notes Were old charts reviewed (outside hosp., previous admission, EMS record, old EKG, old radiological studies, urgent care reports/EKG's, jail records)? Report findings @ -No old charts were reviewed Differential Diagnosis? @ -Differential Mental Health Depression, anxiety, bipolar, psychosis, schizophrenia, borderline personality, situational depression, adjustment disorder, behavioral disorder, brain tumor, malingering, substance abuse, encephalopathy, medication reaction, dementia, hy pothyroidism, degenerative neurologic disorder, lupus.... This is not meant to be all-inclusive list EKG interpreted by me (3pts min.). @ -As above X-rays interpreted by me (1pt min.). @ -None done CT interpreted by me (1pt min.). @ -None done U/S interpreted by me (1pt. min.). @ -None done What testing was considered but not performed or refused? (CT, X-rays, U/S, labs)? Why? @ -None What meds were considered but not given or refused? Why? @ -None Did you discuss the management of the patient with other professionals (professionals i.e. , PA, SUPERVISOR HOUSECLEANER, lab, RT, psych nurse, social media marketer, aitchbone breaker, teacher, forest fire officer, field nurse case manager)? Give summary @ -EPS evaluated the patient and it was determined the patient needed to be admitted. Was smoking cessation discussed for >3mins.? @ -No Was critical care preformed (if so, how long)? @ -No Were there social determinants of health that impacted care today? How? (Homelessness, low income, unemployed, alcoholism, drug addiction, transportation, low edu. Level, literacy, decrease access to med. care, correction, rehab)? @ -No Was there de-escalation of care discussed even if they declined (Discuss DNR or withdrawal of care, Hospice)? DNR status @ -No What co-morbidities impacted this encounter? (DM, HTN, Smoking, COPD, CAD, Cancer, CVA, ARF, Chemo, Hep., AIDS, mental health diagnosis, sleep apnea, morbid obesity)? @ -None Was patient admitted / discharged? Hospital course, mention meds given and route, prescriptions, significant lab abnormalities, going to OR and other pertinent info. @ -Patient was petition to be seen I filled out a clinical certification for the patient's admission EPS evaluated the patient and spoke with psychiatry and they agreed the patient need to be admitted patient will be admitted to 3 W. Undiagnosed new problem with uncertain prognosis? @ -No Drug Therapy requiring intensive monitoring for toxicity (Heparin, Nitro, Insulin, Cardizem)? @ -No Were any procedures done? @ -No Diagnosis/symptom? @ -Acute psychosis Acute, or Chronic, or Acute on Chronic? @ -Acute Uncomplicated (without systemic symptoms) or Complicated (systemic symptoms)? @ -Complicated Side effects of treatment? @ -No Exacerbation, Progression, or Severe Exacerbation? @ -No Poses a threat to life or bodily function? How? (Chest pain, [place], [place], pneumonia, PE, COPD, DKA, ARF, appy, cholecystitis, CVA, Diverticulitis, Homicidal, Suicidal, threat to staff... and all critical care pts) @ -No - Lab Data Lab Results 02/02/25 Range/Units 14:24 Urine Opiates Screen Not Detected (NotDetected) Ur Oxycodone Screen Not Detected (NotDetected) Urine Methadone Screen Not Detected (NotDetected) Ur Barbiturates Screen Not Detected (NotDetected) U Tricyclic Antidepress Not Detected (NotDetected) Ur Phencyclidine Scrn Not Detected (NotDetected) Ur Amphetamines Screen Not Detected (NotDetected) U Methamphetamines Scrn Not Detected (NotDetected) U Benzodiazepines Scrn Not Detected (NotDetected) Urine Cocaine Screen Not Detected (NotDetected) U Marijuana (THC) Screen Detected H (NotDetected) Disposition Clinical Impression: Acute psychosis Disposition: ADMITTED IP TO THIS HOSP Referrals: None,Stated [Primary Care Provider] - 1-2 days Time of Disposition: 15:17
[2025-02-02 14:52] LABS: Amphetamine Screen,Urine Not Detected (NotDetected); Barbiturate Screen,Urine Not Detected (NotDetected); Benzodiazepines Screen,Urine Not Detected (NotDetected); Cocaine Screen,Urine Not Detected (NotDetected); Methadone Screen, Urine Not Detected (NotDetected); Opiate Screen,Urine Not Detected (NotDetected); Oxycodone Screen, Urine Not Detected (NotDetected); Phencyclidine Screen,Urine Not Detected (NotDetected); Tricyclic Antidepressant,Urine Not Detected (NotDetected); Urn Cannabinoid Scrn Detected (NotDetected)
[2025-02-02] MEDS ORDERED: MAG HYDROX/AL HYDROX/SIMETH 355 ML BOTTLE PO PRN (22:08)
[2025-02-02] MEDS ORDERED: MAGNESIUM HYDROXIDE 2,400 MG/30 ML CUP PO PRN (22:08)
[2025-02-02] MEDS ORDERED: ACETAMINOPHEN TAB 325 MG TAB PO PRN (22:08)
[2025-02-02] MEDS ORDERED: IBUPROFEN 600 MG TAB PO PRN (22:08)
[2025-02-02] MEDS ORDERED: OLANZapine 10 MG VIAL IM PRN (22:10)
[2025-02-02] MEDS ORDERED: hydrOXYzine HCL 50 MG/ML 1 ML VIAL IM PRN (22:10)
[2025-02-02] MEDS: OLANZapine 5 MG TAB PO PRN (22:27)
[2025-02-02] MEDS: hydrOXYzine pamoate 25 MG CAP PO PRN (22:27)
[2025-02-03 07:26] LABS: Basophils # (A) 0.06 10*3/uL (0.00-0.10); Basophils % (A) 0.8 %; Eosinophils # (A) 0.14 10*3/uL (0.04-0.35); Eosinophils % (A) 1.9 %; HCT 35.2 % (37.2-46.3); HGB 11.4 g/dL (12.0-15.0); Lymphocytes # (A) 2.43 10*3/uL (0.90-5.00); MCH 29.3 pg (27.0-32.0); MCHC 32.4 g/dL (32.0-37.0); MCV 90.5 fL (80.0-97.0); Mean Platelet Volume 10.2 fL (9.5-12.2); Monocytes # (A) 0.56 10*3/uL (0.20-1.00); Monocytes % (A) 7.6 %; Neutrophils # (A) 4.14 10*3/uL (1.80-7.70); Neutrophils % (A) 56.3 %; Platelet Count 240 10*3/uL (140-440); RBC 3.89 10*6/uL (4.10-5.20); RDW 13.1 % (11.5-14.5); WBC 7.36 10*3/uL (4.50-10.00)
[2025-02-03 07:42] LABS: ALT 13 U/L (4-34); AST 16 U/L (14-36); African American GFR (CKD) >90 (>60 ml/min/1.73 sqM); Albumin 3.5 g/dL (3.5-5.0); Alkaline Phosphatase 54 U/L (38-126); Anion Gap 8 mmol/L; Blood Urea Nitrogen 14 mg/dL (7-17); Calcium 9.3 mg/dL (8.4-10.2); Carbon Dioxide 27 mmol/L (22-30); Chloride 103 mmol/L (98-107); Glucose 84 mg/dL (74-99); Non-African American GFR(CKD) >90 (>60 ml/min/1.73 sqM); Potassium 4.6 mmol/L (3.5-5.1); Sodium 138 mmol/L (137-145); Total Bilirubin 0.8 mg/dL (0.2-1.3); Total Protein 5.8 g/dL (6.3-8.2)
[2025-02-03] MEDS: NICOTINE 14MG/24HR PATCH TRANSDERM SCH (09:02)
[2025-02-03] MEDS: PALIPERIDONE 3 MG TAB.ER.24 PO SCH (13:41)
--- NOTE | 2025-02-03 13:43 | P.HP ---
Psychiatric H&P - . H&P Date: 02/03/25 History & Physical: Allergies Allergy/AdvReac Type Severity Reaction Status Date / Time No Known Allergies Allergy Verified 02/02/25 14:40 Vital Signs Temp 97.5 F L 02/03/25 09:00 Pulse 92 02/03/25 09:00 Resp 16 02/03/25 09:00 BP 87/55 02/03/25 09:00 Pulse Ox 100 02/03/25 09:00 FiO2 Intake & Output 02/02/25 02/03/25 02/03/25 18:59 06:59 18:59 Weight 62.9 kg Laboratory Last Values WBC 7.36 10*3/uL (4.50-10.00) 02/03/25 06:56 RBC 3.89 10*6/uL (4.10-5.20) L 02/03/25 06:56 Hgb 11.4 g/dL (12.0-15.0) L 02/03/25 06:56 Hct 35.2 % (37.2-46.3) L 02/03/25 06:56 MCV 90.5 fL (80.0-97.0) 02/03/25 06:56 MCH 29.3 pg (27.0-32.0) 02/03/25 06:56 MCHC 32.4 g/dL (32.0-37.0) 02/03/25 06:56 Plt Count 240 10*3/uL (140-440) 02/03/25 06:56 MPV 10.2 fL (9.5-12.2) 02/03/25 06:56 Immature Gran % (Auto) 0.4 % 02/03/25 06:56 Neutrophils % 56.3 % 02/03/25 06:56 Lymphocytes % 33.0 % 02/03/25 06:56 Monocytes % 7.6 % 02/03/25 06:56 Eosinophils % 1.9 % 02/03/25 06:56 Basophils % 0.8 % 02/03/25 06:56 Immature Gran # 0.03 10*3/uL (0.00-0.04) 02/03/25 06:56 Neutrophils # 4.14 10*3/uL (1.80-7.70) 02/03/25 06:56 Lymphocytes # 2.43 10*3/uL (0.90-5.00) 02/03/25 06:56 Monocytes # 0.56 10*3/uL (0.20-1.00) 02/03/25 06:56 Eosinophils # 0.14 10*3/uL (0.04-0.35) 02/03/25 06:56 Basophils # 0.06 10*3/uL (0.00-0.10) 02/03/25 06:56 Sodium 138 mmol/L (137-145) 02/03/25 06:56 Potassium 4.6 mmol/L (3.5-5.1) 02/03/25 06:56 Chloride 103 mmol/L (98-107) 02/03/25 06:56 Carbon Dioxide 27 mmol/L (22-30) 02/03/25 06:56 Anion Gap 8 mmol/L 02/03/25 06:56 BUN 14 mg/dL (7-17) 02/03/25 06:56 Creatinine 0.76 mg/dL (0.52-1.04) 02/03/25 06:56 Est GFR (CKD-EPI)AfAm >90 (>60 ml/min/1.73 sqM) 02/03/25 06:56 Est GFR (CKD-EPI)NonAf >90 (>60 ml/min/1.73 sqM) 02/03/25 06:56 Glucose 84 mg/dL (74-99) 02/03/25 06:[address] Glu mg/dL 103 mg/dL 02/03/25 06:56 Hemoglobin A1c 5.2 % (<=6.0) 02/03/25 06:56 Calcium 9.3 mg/dL (8.4-10.2) 02/03/25 06:56 Total Bilirubin 0.8 mg/dL (0.2-1.3) 02/03/25 06:56 AST 16 U/L (14-36) 02/03/25 06:56 ALT 13 U/L (4-34) 02/03/25 06:56 Alkaline Phosphatase 54 U/L (38-126) 02/03/25 06:56 Total Protein 5.8 g/dL (6.3-8.2) L 02/03/25 06:56 Albumin 3.5 g/dL (3.5-5.0) 02/03/25 06:56 TSH 0.972 mIU/L (0.465-4.680) 02/03/25 06:56 Urine Opiates Screen Not Detected (NotDetected) 02/02/25 14:24 Ur Oxycodone Screen Not Detected (NotDetected) 02/02/25 14:24 Urine Methadone Screen Not Detected (NotDetected) 02/02/25 14:24 Ur Barbiturates Screen Not Detected (NotDetected) 02/02/25 14:24 U Tricyclic Antidepress Not Detected (NotDetected) 02/02/25 14:24 Ur Phencyclidine Scrn Not Detected (NotDetected) 02/02/25 14:24 Ur Amphetamines Screen Not Detected (NotDetected) 02/02/25 14:24 U Methamphetamines Scrn Not Detected (NotDetected) 02/02/25 14:24 U Benzodiazepines Scrn Not Detected (NotDetected) 02/02/25 14:24 Urine Cocaine Screen Not Detected (NotDetected) 02/02/25 14:24 U Marijuana (THC) Screen Detected (NotDetected) H 02/02/25 14:24 SARS-CoV-2 (PCR) Not Detected (Not Detectd) 02/02/25 14:58 02/03/25 13:36 IDENTIFYING DATA: Patient is a 34-year-old female with a public guardian, on disability and living with boyfriend and friend CHIEF COMPLAINT: Psychosis HPI: Patient presented to the hospital with auditory hallucinations, command in nature. Per EPS, "Cl is sitting in bed A/O x4 brought in via EMS on PET from [facility] socialworker Renetta Hampton. U clinician Vanessa Salinas called prior to admission to report [facility] had recd call from Carmen and Caitlin. Carmen (roommate reports) he is not doing well past 3-4 days, has been agitated and pacing, covering her ears as has strong voices telling her to kill herself by cutting her throat or going to the river and drowning. Chavezis car is not running so she asked U to call EMS to transport. Caitlin seemed agreeable. They were aware of her IPOS appt today but did not feel she was able to attend. She claims to be taking her meds from last inpt stay every night. Not sure that anyone is monitoring this though. Dispatch was contacted. PET states " Caitlin reported she is seeing things and hearing voices. She reported hearing voices all day and they are telling her to get a knife and kill herself. Caitlin's boyfriend (Darryl / Mariella) reported last night Caitlin told him that the voices were telling her to get a knife and kill him. He reported he asked her if she would act on it and she said yes. Cl agreed with both of these statements and stated " Its very scary, telling me to hurt myself, I don't want to do that. I don't want to jump in the water in the river." Cl reports experiencing the hallucinations in the morning and "around 800pm at night, but I take my medicine at 1000pm." Cl presents anxious, overwhelmed, suspicious, tearful,with restless legs and reporting cramping in their legs. Cl is unemployed living with friend and roommate. Cl is open w [facility] but has not met with psychiatrist. Judgement/insight/impulse control: poor ADLS: good Sleep/Dmitriy: broken/ok. Medical issues: None reported. Medications: Invega 3 mg and melatonin. Hx of MH tx: Open w [facility] Hx of in pat: 3x's Last [facility] U 12/2024 Hx of BENNY: Cl reports last use of ETOH was 12/27/24. BAT:0.0 UDS: pos THC Hx of in pat rehab: none Fam Hx: not aware of any family history of attempted or completed suicide, mental illness or substance abuse treatment. Hx of trauma: none reported. Hx of legal: None reported Denies SI/HI". Patient seen and evaluated on the unit and was agreeable with speaking to program writer in office. She states even upon discharge last week, she still exhibited auditory hallucinations however they are now more command in nature, telling her to slit her throat and jump in the river. She states that the voices are worse during the day and are more stable at nighttime when she takes her medications. She claims to be adherent with her Invega. She feels safe living with her boyfriend and best friend. Patient denies any suicidal or homicidal ideations intent or plan. At this time patient denies any visual hallucinations. Patient denies any flight of ideas racing thoughts and increased in goal directed behavior. Patient admits to using cannabis, doing 2 dabs per day, smoking 1 pack/day of cigarettes and vaping nicotine daily. She denies any recent use of ice or wippets. PAST PSYCHIATRIC HISTORY: Patient has a history of unspecified psychosis, intellectual disability, cocaine use disorder. Patient is currently on Invega 3 mg at bedtime. She has tried Risperdal in the past. Patient reports 2 previous inpatient hospitalization, last being at this facility from 01/22-01/26/2025. Patient follows with [facility]. Patient denies any history of suicide attempts in the past. PMH: as per ER note ALLERGIES: as per EMR SUBSTANCE USE HISTORY: As per HPI FAMILY PSYCHIATRIC/SUBSTANCE USE HISTORY: Denies SOCIAL HISTORY: Patient is , lives with her current boyfriend and best friend and has 1 son who was adopted. She completed high school, on SSD. MENTAL STATUS EXAM: General Appearance: Patient appears to be stated age is alert, directable, and attempts to cooperate. Patient appears to have poor hygiene and grooming. Behavior: Patient is seated without any agitated behavior. Speech: Patient's speech is fluent and nonpressured. Mood/Affect: Patient reports their mood is depressed, affect is congruent and constricted. Suicidality/Homicidality: Patient denies having any homicidal ideation intent or plan. Denies any suicidal ideations intent or plan Perceptions: Patient denies any visual hallucinations however she reports auditory hallucinations that are command in nature Though content/process: There is no evidence of any delusional thought content and thought process is linear and goal-directed. Memory and concentration: AOX3, grossly intact for the purposes of this session. Can spell "WORLD" backwards Judgment and insight: Fair STRENGTHS/WEAKNESSES: strength is that patient is resilient and has a guardian. Weakness is that patient has poor judgment and is impulsive INTELLECT: Below average IMPRESSIONS: Psychosis, unspecified Rule out schizophrenia versus schizoaffective disorder, bipolar type Cannabis use disorder Intellectual disability Generalized anxiety disorder Nicotine dependence Cocaine use disorder, in remission PLAN: -Patient is admitted under voluntary status to [facility] for stabilization of psychiatric symptoms and safety. Patient has signed adult voluntary form and and is placed in patient's chart. -Medications : Increase Invega to 3 mg twice daily for psychosis, start melatonin 10 mg at bedtime for insomnia - Hydroxyzine and Zyprexa PRN for agitation/aggression -Patient was counselled on substance abuse and desired to cut back on use -Patient was informed of the risks, benefits and side effects of the medication and patient verbally consented to taking the medications. Patient signed med consent form and was placed in chart. Patient offered and accepted patient education sheet for psychotropic medications. -Internal Medicine consult to perform medical evaluation and physical. -NRT -nicotine patch -SW on board for discharge planning. Encourage patient to participate in groups to work on coping skills.
[2025-02-03 15:11] LABS: Chol/HDL Ratio 2.93 Ratio; LDL Cholesterol,Calculated 103.3 mg/dL (0.0-131.0)
[2025-02-03] MEDS: MELATONIN 5 MG TABLET PO SCH (20:29)
--- NOTE | 2025-02-03 20:59 | P.HPIM ---
History of Present Illness H&P Date: 02/03/25 History of present illness; 34-year-old female with PMH of general anxiety disorder and intellectual disability presented to the hospital with auditory hallucinations. When seen today she states that she is feeling better. Patient denies any fever, chills, cough, sore throat, chest pain, trouble b reathing, nausea, vomiting, abdominal pain, changes in urinary or bowel habits. Patient endorses significant tobacco smoking history as well as marijuana use and a history of cocaine use. REVIEW OF SYSTEMS: All systems reviewed, pertinent positives and negatives noted in HPI. All other symptoms are negative. PHYSICAL EXAMINATION: Vitals reviewed GENERAL: No acute distress. Well developed, well nourished. HEENT: Pupils are round and equally reacting to light. EOMI. No scleral icterus. Normocephalic, atraumatic. CARDIOVASCULAR: S1 and S2 present. No murmurs, rubs, or gallops. PULMONARY: Chest is clear to auscultation, no wheezing, rhonchi, or crackles. MUSCULOSKELETAL: No apparent joint swelling and deformities. EXTREMITIES: No apparent cyanosis, clubbing, or pedal edema. NEUROLOGICAL: The patient is alert and oriented x3, Gross neurological examination did not reveal any focal deficits. 5/5 strength bilateral UE and LE; CN2-12 intact, without gross abnormality. SKIN: No rash noted. Assessment and plan #Psychosis, unspecified #R/o schizophrenia v schizoaffective disorder, bipolar type #Cannabis use disorder #Intellectual disability #General Anxiety disorder #Nicotine dependence #Cocaine use disorder, in remission - Management per psych Lab work reviewed showing: - WBC 7.36, hemoglobin 11.4, hematocrit 35.2, platelet 240; sodium 138, potassium 4.6, bicarb 27, BUN 14, creatinine 0.76, calcium 9.3, total bilirubin 0.8, AST 16, ALT 13, alkaline phosphatase 54; triglycerides 86.5, cholesterol 183.0, LDL 103.3, VLDL 17.3, HDL 62.40, TSH 0.972 - Urine toxicology screen positive for marijuana Code status: Full code Patient is stable from medical stand point Dictation was produced using [employer] dictation software. Please excuse any grammatical, word or spelling errors. Grover Tapia MD PGY 1 IM Attestation : Patient seen and examined with lead medical technologist. Agree with above assessment and plan Time spent : 35 min Past Medical History Past Medical History: No Reported History Additional Past Medical History / Comment(s): developmental delay History of Any Multi-Drug Resistant Organisms: None Reported Past Surgical History: Section Past Anesthesia/Blood Transfusion Reactions: No Reported Reaction Past Psychological History: Depression Smoking Status: Current every day smoker Past Alcohol Use History: None Reported Past Drug Use History: Marijuana Medications and Allergies Home Medications Medication Instructions Recorded Confirmed Type Melatonin 5 mg PO HS 30 Days #30 tab 01/26/25 02/02/25 Rx Nicotine 14Mg/24Hr Patch [Habitrol] 1 patch TRANSDERM DAILY 14 Days 01/26/25 02/02/25 Rx #14 patch Paliperidone [Invega] 3 mg PO HS 30 Days #30 tab 01/26/25 02/02/25 Rx Allergies Allergy/AdvReac Type Severity Reaction Status Date / Time No Known Allergies Allergy Verified 02/02/25 14:40 Physical Exam Vitals: Vital Signs Temp Pulse Resp BP Pulse Ox 02/03/25 09:00 97.5 F L 92 16 87/55 100 Results CBC & Chem 7: 02/03/25 06:56 02/03/25 06:56 Labs: Abnormal Lab Results - Last 24 Hours (Table) 02/03/25 02/03/25 Range/Units 06:56 06:56 RBC 3.89 L (4.10-5.20) 10*6/uL Hgb 11.4 L (12.0-15.0) g/dL Hct 35.2 L (37.2-46.3) % Total Protein 5.8 L (6.3-8.2) g/dL HDL Cholesterol 62.40 H (40.00-60.00) mg/dL Thrombosis Risk Factor Assmnt - Choose All That Apply Any of the Below Risk Factors Present?: No Other Risk Factors: No Other congenital or acquired thrombophilia - If yes, enter type in comment: No Thrombosis Risk Factor Assessment Level: Very Low Risk
[2025-02-04] MEDS: NICOTINE GUM (POLACRILEX) 2 MG GUM BUCCAL PRN (12:11)
--- NOTE | 2025-02-04 12:33 | P.PN ---
Progress Note - Text Progress Note Date: 02/04/25 Interval History: Patient was seen wandering the hallways and was directable and agreeable to sp eak with check writer salesperson in the office. She reports feeling better today, no longer hearing voices. The quick resolution and voices prompted check writer salesperson to inquire again about substances contributing to the current presentation however patient is adamant that she does not do whippets anymore and only uses cannabis. She has been going to groups. She expressed no concerns with sleep. At this time patient denies any suicidal or homicidal ideations, intent or plan. Patient denies any auditory, visual hallucinations and denies any paranoia or delusions. Patient denies any side effects from the medications and has been compliant with meds. Mental Status Exam: General Appearance: Patient appears to be stated age is alert, directable, and cooperative. Has fair grooming and hygiene Behavior: Patient is calmly seated without any agitated behavior. Speech: Patient's speech is fluent and nonpressured. Mood/Affect: Mood is improving mildly, affect is congruent and constricted. Suicidality/Homicidality: Patient denies having any suicidal or homicidal ideation intent or plan. Perceptions: Patient denies any visual hallucinations and denies any auditory hallucinations Though content/process: There is no evidence of any delusional thought content and thought process is linear and goal-directed. Memory and concentration: AOX3, grossly intact for the purposes of this session Judgment and insight: Improving mildly Assessment Psychosis, unspecified Rule out schizophrenia versus schizoaffective disorder, bipolar type Cannabis use disorder Intellectual disability Generalized anxiety disorder Nicotine dependence Cocaine use disorder, in remission Plan: -Patient continues to meet criteria for inpatient psychiatric admission for symptom stabilization and safety. Patient has signed adult voluntary form and medication consent and was placed in patient's chart. -Medications: Continue Invega 3 mg twice daily for psychosis, melatonin 10 mg at bedtime for insomnia -When necessary Zyprexa and hydroxyzine for agitation/aggression. -Labs: Grossly WNL -NRT - nicotine patch -SW on board for discharge planning. Encouraged the patient to participate in milieu. Anticipate discharge early next week pending stabilization in
--- NOTE | 2025-02-05 15:09 | P.PN ---
Subjective Progress Note Date: 02/05/25 Principal diagnosis: Psychosis unspecified Patient was seen wandering the hallways and was directable and agreeable to speak with production underwriter in the office. She reports, no longer hearing voices. She has been going to groups. She expressed no concerns with sleep. At this time patient denies any suicidal or homicidal ideations, intent or plan. Patient denies any auditory, visual hallucinations and denies any paranoia or delusions. Patient denies any side effects from the medications and has been compliant with meds. The patient was pleasant and cooperative. She seems to have some cognitive impairment. She says that she is tolerating the medication well and is not too sleepy no constipation dry mouth blurred vision. She was interested if and when she would be discharged. Mental Status Exam: General Appearance: Patient appears to be stated age is alert, directable, and cooperative. Has fair grooming and hygiene Behavior: Patient is calmly seated without any agitated behavior. Speech: Patient's speech is fluent and nonpressured. Mood/Affect: Mood is improving mildly, affect is congruent and constricted. Suicidality/Homicidality: Patient denies having any suicidal or homicidal ideation intent or plan. Perceptions: Patient denies any visual hallucinations and denies any auditory hallucinations Though content/process: There is no evidence of any delusional thought content and thought process is linear and goal-directed. Memory and concentration: AOX3, grossly intact for the purposes of this session Judgment and insight: Improving mildly Assessment medicine seems to be working and being tolerated no need to change at this time Psychosis, unspecified Rule out schizophrenia versus schizoaffective disorder, bipolar type Cannabis use disorder Intellectual disability Generalized anxiety disorder Nicotine dependence Cocaine use disorder, in remission Plan: -Patient continues to meet criteria for inpatient psychiatric admission for symptom stabilization and safety. Patient has signed adult voluntary form and medication consent and was placed in patient's chart. -Medications: Continue Invega 3 mg twice daily for psychosis, melatonin 10 mg at bedtime for insomnia -When necessary Zyprexa and hydroxyzine for agitation/aggression. -Labs: Grossly WNL -NRT - nicotine patch - on board for discharge planning. Encouraged the patient to participate in milieu. Anticipate discharge early next week pending stabilization in Objective - Vital Signs Vital signs: Vital Signs Temp 97.8 F 02/05/25 08:45 Pulse 76 02/05/25 08:45 Resp 18 02/05/25 08:45 BP 96/58 02/05/25 08:45 Pulse Ox 99 02/05/25 08:45 FiO2 - Labs CBC & Chem 7: 02/03/25 06:56 02/03/25 06:56
--- NOTE | 2025-02-06 08:05 | P.PN ---
Subjective Progress Note Date: 02/06/25 Principal diagnosis: Psychosis unspecified Patient was seen wandering the hallways and was directable and agreeable to speak with junior copywriter in the office. She reports, no longer hearing voices since the medication was taken to twice a day and she is very happy with that.. She has been going to groups. She says she slept well and does not appear lethargic this morning. At this time patient denies any suicidal or homicidal ideations, intent or plan. Patient denies any auditory, visual hallucinations and denies any paranoia or delusions. Patient denies any side effects from the medications and has been compliant with meds. The patient was pleasant and cooperative. She seems to have some cognitive impairment. She says that she is tolerating the medication well and is not too sleepy no constipation dry mouth blurred vision. She was interested if and when she would be discharged. Mental Status Exam: General Appearance: Patient appears to be stated age is alert, directable, and cooperative. Has fair grooming and hygiene Behavior: Patient is calmly seated without any agitated behavior. Speech: Patient's speech is fluent and nonpressured. Mood/Affect: Mood is improving mildly, affect is congruent and constricted. Suicidality/Homicidality: Patient denies having any suicidal or homicidal ideation intent or plan. Perceptions: Patient denies any visual hallucinations and denies any auditory hallucinations Though content/process: There is no evidence of any delusional thought content and thought process is linear and goal-directed. Memory and concentration: AOX3, grossly intact for the purposes of this session Judgment and insight: Improving mildly Assessment medicine seems to be working and being tolerated no need to change at this time Psychosis, unspecified Rule out schizophrenia versus schizoaffective disorder, bipolar type Cannabis use disorder Intellectual disability Generalized anxiety disorder Nicotine dependence Cocaine use disorder, in remission Plan: She seems to be improving no changes medicine indicated at this time -Patient continues to meet criteria for inpatient psychiatric admission for symptom stabilization and safety. Patient has signed adult voluntary form and medication consent and was placed in patient's chart. -Medications: Continue Invega 3 mg twice daily for psychosis, melatonin 10 mg at bedtime for insomnia -When necessary Zyprexa and hydroxyzine for agitation/aggression. -Labs: Grossly WNL -NRT - nicotine patch -SW on board for discharge planning. Encouraged the patient to participate in milieu. Anticipate discharge early next week pending stabilization in Objective - Vital Signs Vital signs: Vital Signs Temp 97.8 F 02/05/25 21:00 Pulse 71 02/05/25 21:00 Resp 18 02/05/25 21:00 BP 112/64 02/05/25 21:00 Pulse Ox 99 02/05/25 21:00 FiO2 - Labs CBC & Chem 7: 02/03/25 06:56 02/03/25 06:56
[2025-02-06 09:59] LABS: Appearance,Urine Clear (Clear); Bacteria,Urine Occasional /hpf; Bilirubin,Urine Negative (Negative); Blood,Urine Negative (Negative); Color,Urine Colorless; Glucose,Urine (UA) Negative (Negative); Ketones,Urine Negative (Negative); Leukocyte Esterase,Urine Trace (Negative); Nitrite,Urine Negative (Negative); Protein,Urine Negative (Negative); RBC,Urine <1 /hpf (0-5); Specific Gravity,Urine 1.005 (1.001-1.035); Squamous Epithelial Cell,Urine <1 /hpf (0-4); Urobilinogen,Urine <2.0 mg/dL (<2.0); WBC,Urine 5 /hpf (0-5)
[2025-02-07 11:26] VITALS: BP 107/83; PULSE 85; RESP 18; TEMP 97.6
--- NOTE | 2025-02-07 12:42 | P.DS ---
Providers Date of admission: 02/02/25 18:05 Expected date of discharge: 02/07/25 Attending physician: Ariana Rivas MD Consults: 02/02/25 22:08 Consult Physician Routine Consulting Provider: Conner Wyatt Consult Reason/Comments: History and Physical, New Admission Do you want consulting provider notified?: Yes Primary care physician: Stated None - Discharge Diagnosis(es) (1) Psychosis Current Visit: Yes Status: Acute Priority: High (2) Cocaine use disorder in remission Current Visit: Yes Status: Chronic Priority: Low (3) Cannabis use disorder Current Visit: Yes Status: Acute Priority: Medium (4) OMAIRA (generalized anxiety disorder) Current Visit: Yes Status: Acute Priority: Low (5) Intellectual disability Current Visit: Yes Status: Chronic Priority: Medium (6) Nicotine dependence Current Visit: Yes Status: Acute Priority: Low Hospital Course: Admission HPI: Admission note was completed by brief writer "Patient presented to the hospital with auditory hallucinations, command in nature. Per EPS, "Cl is sitting in bed A/O x4 brought in via EMS on PET from [facility] socialworker Renetta Hampton. U clinician Vanessa Salinas called prior to admission to report [facility] had recd call from Carmen and Caitlin. Carmen (roommate reports) he is not doing well past 3-4 days, has been agitated and pacing, covering her ears as has strong voices telling her to kill herself by cutting her throat or going to the river and drowning. Konrad car is not running so she asked U to call EMS to transport. Caitlin seemed agreeable. They were aware of her IPOS appt today but did not feel she was able to attend. She claims to be taking her meds from last inpt stay every night. Not sure that anyone is monitoring this though. Dispatch was contacted. PET states " Caitlin reported she is seeing things and hearing voices. She reported hearing voices all day and they are telling her to get a knife and kill herself. Caitlin's boyfriend (Darryl / Mariella) reported last night Caitlin told him that the voices were telling her to get a knife and kill him. He reported he asked her if she would act on it and she said yes. Cl agreed with both of these statements and stated " Its very scary, telling me to hurt myself, I don't want to do that. I don't want to jump in the water in the river." Cl reports experiencing the hallucinations in the morning and "around 800pm at night, but I take my medicine at 1000pm." Cl presents anxious, overwhelmed, suspicious, tearful,with restless legs and reporting cramping in their legs. Cl is unemployed living with friend and roommate. Cl is open w [facility] but has not met with psychiatrist. Judgement/insight/impulse control: poor ADLS: good Sleep/Dmitriy: broken/ok. Medical issues: None reported. Medications: Invega 3 mg and melatonin. Hx of MH tx: Open w CM Hx of in pat: 3x's Last [facility] 12/2024 Hx of BENNY: Cl reports last use of ETOH was 12/27/24. BAT:0.0 UDS: pos THC Hx of in pat rehab: none Fam Hx: not aware of any family history of attempted or completed suicide, mental illness or substance abuse treatment. Hx of trauma: none reported. Hx of legal: None reported Denies SI/HI". Patient seen and evaluated on the unit and was agreeable with speaking to brief writer in office. She states even upon discharge last week, she still exhibited auditory hallucinations however they are now more command in nature, telling her to slit her throat and jump in the river. She states that the voices are worse during the day and are more stable at nighttime when she takes her medications. She claims to be adherent with her Invega. She feels safe living with her boyfriend and best friend. Patient denies any suicidal or homicidal ideations intent or plan. At this time patient denies any visual hallucinations. Patient denies any flight of ideas racing thoughts and increased in goal directed behavior. Patient admits to using cannabis, doing 2 dabs per day, smoking 1 pack/day of cigarettes and vaping nicotine daily. She denies any recent use of ice or wippets." Hospital course: Upon admission to the unit patient was directable and agreeable to commence treatment and signed adult voluntary form.. Patient got along well with other patients on the unit and followed unit protocol. Patient was compliant with the medications and denied any side effects throughout hospital course. Patient was started on Invega and this was increased to 3 mg twice daily for psychosis, melatonin 10 mg at bedtime for insomnia. Patient spoke of her stressors and engaged in therapy both group and individual. Patient was also seen by medical team for history and physical exam. Throughout the course of the hospitalization patient gradually improved with regards to mood, anxiety, sleep and returned back to their baseline level of functioning. On the day of discharge patient denied any suicidal or homicidal ideations intent or plan denied any auditory or visual hallucinations. The patient denied any access to guns or weapons. Patient denied any paranoia and did not endorse any delusions. Patient does not have a significant history of substance abuse and was counseled on abstaining from all substances including alcohol and marijuana. Patient was also counseled on the medications and need for regular compliance and was encouraged to follow-up with their outpatient appointment for mental health and also for primary care. Prior to discharge a family meeting will be arranged by social service agency director to answer any questions and ensure safety upon discharge including making sure that guns/weapons are either removed from the home or locked away. Patient to be discharged home with boyfriend/friend and will follow-up with [facility]. Mental status exam: General Appearance: Patient appears to be stated age is alert, pleasant, and cooperative. Patient is in no acute distress and has improved hygiene and grooming Behavior: Patient is calmly seated without any agitated behavior. Speech: Patient's speech is fluent and nonpressured. Mood/Affect: Patient reports their mood is "better", affect is congruent and euthymic. Suicidality/Homicidality: Patient denies having any suicidal or homicidal ideation intent or plan. Perceptions: Patient denies any auditory or visual hallucinations. Though content/process: There is no evidence of any delusional thought content and thought process is linear and goal-directed. Memory and concentration: AOX3, grossly intact for the purposes of this session. Can spell "WORLD" backwards correctly. Judgment and insight: Fair Impression: Psychosis, unspecified Rule out schizophrenia versus schizoaffective disorder bipolar type Cannabis use disorder Intellectual disability Generalized anxiety disorder Cocaine use disorder, in remission Nicotine dependence Plan: -Continue with discharge today as patient has improved and stabilized psychiatrically and is not currently an imminent threat to themself and/or others. -Continue medications: Invega 3 mg twice daily, melatonin 10 mg at bedtime -Patient was counseled on the need for medication compliance and appropriate follow-up at mental health and also primary care for medical issues. Patient verbalized understanding and agreed. -Social work to help coordinate patients discharge today arrange for and conduct family meeting to ensure safety upon discharge and answer any questions/concerns. also to ensure safe home environment that guns/weapons are either removed from the home or locked away. Social work also to arrange for patients follow up appointments with [facility] for psychiatric care along with follow up with primary care provider. -Patient counseled on abstaining from recreational drugs and marijuana and alcohol. Was informed/educated on the adverse effects on their physical and mental health. Patient verbally agreed and understood. -Patient was instructed to return to the hospital or seek immediate medical care if their psychiatric or medical symptoms do worsen or reoccur. Abnormal Labs 02/02/25 02/03/25 02/03/25 14:24 06:56 06:56 RBC 3.89 L Hgb 11.4 L Hct 35.2 L Total Protein 5.8 L HDL Cholesterol 62.40 H Ur Leukocyte Esterase Urine Bacteria U Marijuana (THC) Screen Detected H 02/06/25 08:36 RBC Hgb Hct Total Protein HDL Cholesterol Ur Leukocyte Esterase Trace H Urine Bacteria Occasional H U Marijuana (THC) Screen Allergies Allergy/AdvReac Type Severity Reaction Status Date / Time No Known Allergies Allergy Verified 02/02/25 14:40 Vital Signs Temp 97.6 F 02/07/25 11:24 Pulse 85 02/07/25 11:24 Resp 18 02/07/25 11:24 BP 107/83 02/07/25 11:24 Pulse Ox 99 02/07/25 11:24 FiO2 Intake & Output 02/06/25 02/07/25 02/07/25 18:59 06:59 18:59 Weight 63.8 kg Patient Condition at Discharge: Stable Plan - Discharge Summary Discharge Rx Participant: Yes New Discharge Prescriptions: New Nicotine 14Mg/24Hr Patch [Habitrol] 1 patch TRANSDERM DAILY patch Paliperidone [Invega] 3 mg PO BID 30 Days #60 tab Melatonin 10 mg PO HS 30 Days #60 tab Discontinued Paliperidone [Invega] 3 mg PO HS 30 Days #30 tab Nicotine 14Mg/24Hr Patch [Habitrol] 1 patch TRANSDERM DAILY 14 Days #14 patch Melatonin 5 mg PO HS 30 Days #30 tab Discharge Medication List Melatonin 10 mg PO HS 30 Days #60 tab 02/07/25 [Rx] Nicotine 14Mg/24Hr Patch [Habitrol] 1 patch TRANSDERM DAILY patch 02/07/25 [Rx] Paliperidone [Invega] 3 mg PO BID 30 Days #60 tab 02/07/25 [Rx] Follow up Appointment(s)/Referral(s): [facility] [Outside] - 02/10/25 4:00 pm (02/10/2025 4:00PM - 5:00PM NABIL DUTTON 02/16/2025 12:00PM - 1:00PM MARISSA CAREY [facility] [NON-STAFF] - 1 Week Patient Instructions/Handouts: Cannabis Abuse (DC), Psychotic Disorder (DC) Activity/Diet/Wound Care/Special Instructions: Avoid the use of street drugs and alcohol. Take all medications as prescribed. When you are in need of refills on your medications, please contact your medical provider and/or outpatient psychiatrist/provider to have this done. Please go to your scheduled outpatient appointment for aftercare treatment. If symptoms return or become worse, call the crisis line at and/or go to the nearest emergency room for evaluation. National Suicide Hotline [address] [facility] confidentiality statement: "The information contained in this communication, including attachments, is confidential, may be privileged, and is intended only for the use of the named recipient(s). Unauthorized use, disclosure, forwarding or copying is strictly prohibited and may be unlawful. If you have received this communication in error, please notify me IMMEDIATELY at the phone number or pager listed above. Discharge Disposition: HOME SELF-CARE
== END 2025-02-07 13:25 | disposition home or self-care (01) | DRG 750 ==
LOC: EC 13:09 → 3MHU 18:05
PROVIDERS: ADMIT Psychiatry & Neurology Psychiatry; ATTEND Psychiatry & Neurology Psychiatry
DX: F23 Brief psychotic disorder (principal); F14.11 Cocaine abuse, in remission; F12.10 Cannabis abuse, uncomplicated; F41.1 Generalized anxiety disorder; F79 Unspecified intellectual disabilities; F17.210 Nicotine dependence, cigarettes, uncomplicated; F25.0 Schizoaffective disorder, bipolar type; F17.290 Nicotine dependence, other tobacco product, uncomplicated; R45.851 Suicidal ideations; G47.00 Insomnia, unspecified; G25.81 Restless legs syndrome; F32.A Depression, unspecified; Z79.899 Other long term (current) drug therapy; Z56.0 Unemployment, unspecified; Z11.52 Encounter for screening for COVID-19
CPT/HCPCS: 80053; 80061; 80306; 81001; 81025; 82075; 83036; 84443; 85025; 87635; 99285

== ENCOUNTER 2025-02-14 00:29 | Inpatient (IN) | payer MEDICAID, OTHER ==
[2025-02-14] MEDS: ACETAMINOPHEN TAB 325 MG TAB PO STA (01:34)
[2025-02-14] MEDS: LORazepam 1 MG TAB PO STA (01:34)
--- NOTE | 2025-02-14 01:42 | ED ---
Psych HPI - General Chief Complaint: Psychiatric Symptoms Stated Complaint: [place] Yuen, Hallucinations Time Seen by Provider: 02/14/25 01:23 Source: patient, police Mode of arrival: wheelchair - History of Present Illness Initial Comments: 34-year-old female here for mental health evaluation. Patient is having auditory hallucinations. There are voices that are telling her to "slit her throat". Patient is crying and very scared. She is also complaining of some lower back pain. States that she twisted in bed the wrong way. No loss of bowel or bladder control or saddle paresthesia. The patient is very anxious at this time. - Related Data Previous Rx's Medication Instructions Recorded Melatonin 10 mg PO HS 30 Days #60 tab 02/07/25 Nicotine 14Mg/24Hr Patch [Habitrol] 1 patch TRANSDERM DAILY patch 02/07/25 Paliperidone [Invega] 3 mg PO BID 30 Days #60 tab 02/07/25 Allergies Allergy/AdvReac Type Severity Reaction Status Date / Time No Known Allergies Allergy Verified 02/14/25 00:34 Review of Systems ROS Statement: Those systems with pertinent positive or pertinent negative responses have been documented in the HPI. ROS Other: All systems not noted in ROS Statement are negative. Past Medical History Past Medical History: No Reported History Additional Past Medical History / Comment(s): developmental delay History of Any Multi-Drug Resistant Organisms: None Reported Past Surgical History: Section Past Anesthesia/Blood Transfusion Reactions: No Reported Reaction Past Psychological History: Depression Smoking Status: Current every day smoker Past Alcohol Use History: None Reported Past Drug Use History: Marijuana General Exam Limitations: no limitations General appearance: alert, anxious, in distress Head exam: Present: atraumatic, normocephalic, normal inspection Eye exam: Present: normal appearance, EOMI Neck exam: Present: normal inspection. Absent: meningismus Respiratory exam: Absent: respiratory distress Cardiovascular Exam: Present: regular rate Neurological exam: Present: alert, oriented X3 Psychiatric exam: Present: anxious Skin exam: Present: warm, dry Course Vital Signs 02/14/25 00:34 Temperature 97.5 F L Pulse Rate 85 Respiratory 16 Rate Blood Pressure 137/80 O2 Sat by Pulse 99 Oximetry Medical Decision Making - Medical Decision Making Was pt. sent in by a medical professional or institution (, PA, RISK INTERN, urgent care, hospital, or assisted...) When possible be specific @ -No Did you speak to anyone other than the patient for history (EMS, parent, family, police, friend...)? What history was obtained from this source @ -No Did you review nursing and triage notes (agree or disagree)? Why? @ -I reviewed and agree with nursing and triage notes Were old charts reviewed (outside hosp., previous admission, EMS record, old EKG, old radiological studies, urgent care reports/EKG's, assisted records)? Report findings @ -No old charts were reviewed Differential Diagnosis (chest pain, altered mental status, abdominal pain women, abdominal pain men, vaginal bleeding, weakness, fever, dyspnea, syncope, headache, dizziness, GI bleed, back pain, seizure, CVA, palpatations, mental health, musculoskeletal)? @ -Differential Mental Health Depression, anxiety, bipolar, psychosis, schizophrenia, borderline personality, situational depression, adjustment disorder, behavioral disorder, brain tumor, malingering, substance abuse, encephalopathy, medication reaction, dementia, hypothyroidism, degenerative neurologic disorder, lupus.... This is not meant to be all-inclusive list EKG interpreted by me (3pts min.). @ -As above X-rays interpreted by me (1pt min.). @ -None done CT interpreted by me (1pt min.). @ -None done U/S interpreted by me (1pt. min.). @ -None done What testing was considered but not performed or refused? (CT, X-rays, U/S, labs)? Why? @ -None What meds were considered but not given or refused? Why? @ -None Did you discuss the management of the patient with other professionals (allyssa chambers i.e. , PA, RISK INTERN, lab, RT, psych nurse, social worker health services, project finance analyst, teacher, corporate banking officer, case making machine operator)? Give summary @ -No Was smoking cessation discussed for >3mins.? @ -No Was critical care preformed (if so, how long)? @ -No Were there social determinants of health that impacted care today? How? (Homelessness, low income, unemployed, alcoholism, drug addiction, transportation, low edu. Level, literacy, decrease access to med. care, group home, rehab)? @ -No Was there de-escalation of care discussed even if they declined (Discuss DNR or withdrawal of care, Hospice)? DNR status @ -No What co-morbidities impacted this encounter? (DM, HTN, Smoking, COPD, CAD, Cancer, CVA, ARF, Chemo, Hep., AIDS, mental health diagnosis, sleep apnea, morbid obesity)? @ -None Was patient admitted / discharged? Hospital course, mention meds given and route, prescriptions, significant lab abnormalities, going to OR and other pertinent info. @ -34-year-old female presenting for mental health evaluation. She is medically cleared. Patient evaluated by EPS and will be admitted. My attending is Dr. Joy Undiagnosed new problem with uncertain prognosis? @ -No Drug Therapy requiring intensive monitoring for toxicity (Heparin, Nitro, Insulin, Cardizem)? @ -No Were any procedures done? @ -No Diagnosis/symptom? @ -Psychosis Acute, or Chronic, or Acute on Chronic? @ -Acute Uncomplicated (without systemic symptoms) or Complicated (systemic symptoms)? @ -Complicated Side effects of treatment? @ -No Exacerbation, Progression, or Severe Exacerbation? @ -No Poses a threat to life or bodily function? How? (Chest pain, USA, OR, pneumonia, PE, COPD, DKA, ARF, appy, cholecystitis, CVA, Diverticulitis, Homicidal, Suicidal, threat to staff... and all critical care pts) @ -Yes - Lab Data Lab Results 02/14/25 02/14/25 02/14/25 Range/Units 00:43 00:43 00:43 Urine Color Colorless Urine Appearance Clear (Clear) Urine pH 6.5 (5.0-8.0) Ur Specific [place] 1.009 (1.001-1.035) Urine Protein Negative (Negative) Urine Glucose (UA) Negative (Negative) Urine Ketones Negative (Negative) Urine Blood Negative (Negative) Urine Nitrite Negative (Negative) Urine Bilirubin Negative (Negative) Urine Urobilinogen <2.0 (<2.0) mg/dL Ur Leukocyte Esterase Negative (Negative) Urine HCG, Qual Not Detected (Not Detectd) Urine Opiates Screen Not Detected (NotDetected) Ur Oxycodone Screen Not Detected (NotDetected) Urine Methadone Screen Not Detected (NotDetected) Ur Barbiturates Screen Not Detected (NotDetected) U Tricyclic Antidepress Not Detected (NotDetected) Ur Phencyclidine Scrn Not Detected (NotDetected) Ur Amphetamines Screen Not Detected (NotDetected) U Methamphetamines Scrn Not Detected (NotDetected) U Benzodiazepines Scrn Not Detected (NotDetected) Urine Cocaine Screen Not Detected (NotDetected) U Marijuana (THC) Screen Detected H (NotDetected) Influenza Type A (PCR) (Not Detectd) Influenza Type B (PCR) (Not Detectd) RSV (PCR) (Not Detectd) SARS-CoV-2 (PCR) (Not Detectd) 02/14/25 Range/Units 02:50 Urine Color Urine Appearance (Clear) Urine pH (5.0-8.0) Ur Specific [place] (1.001-1.035) Urine Protein (Negative) Urine Glucose (UA) (Negative) Urine Ketones (Negative) Urine Blood (Negative) Urine Nitrite (Negative) Urine Bilirubin (Negative) Urine Urobilinogen (<2.0) mg/dL Ur Leukocyte Esterase (Negative) Urine HCG, Qual (Not Detectd) Urine Opiates Screen (NotDetected) Ur Oxycodone Screen (NotDetected) Urine Methadone Screen (NotDetected) Ur Barbiturates Screen (NotDetected) U Tricyclic Antidepress (NotDetected) Ur Phencyclidine Scrn (NotDetected) Ur Amphetamines Screen (NotDetected) U Methamphetamines Scrn (NotDetected) U Benzodiazepines Scrn (NotDetected) Urine Cocaine Screen (NotDetected) U Marijuana (THC) Screen (NotDetected) Influenza Type A (PCR) Not Detected (Not Detectd) Influenza Type B (PCR) Not Detected (Not Detectd) RSV (PCR) Not Detected (Not Detectd) SARS-CoV-2 (PCR) Not Detected (Not Detectd) Disposition Clinical Impression: Psychosis Disposition: ADMITTED IP TO THIS HOSP Condition: Serious Time of Disposition: 03:24
[2025-02-14 01:43] LABS: Amphetamine Screen,Urine Not Detected (NotDetected); Barbiturate Screen,Urine Not Detected (NotDetected); Benzodiazepines Screen,Urine Not Detected (NotDetected); Cocaine Screen,Urine Not Detected (NotDetected); Methadone Screen, Urine Not Detected (NotDetected); Opiate Screen,Urine Not Detected (NotDetected); Oxycodone Screen, Urine Not Detected (NotDetected); Phencyclidine Screen,Urine Not Detected (NotDetected); Tricyclic Antidepressant,Urine Not Detected (NotDetected); Urn Cannabinoid Scrn Detected (NotDetected)
[2025-02-14 02:47] LABS: Appearance,Urine Clear (Clear); Bilirubin,Urine Negative (Negative); Blood,Urine Negative (Negative); Color,Urine Colorless; Glucose,Urine (UA) Negative (Negative); Ketones,Urine Negative (Negative); Leukocyte Esterase,Urine Negative (Negative); Nitrite,Urine Negative (Negative); PH, Urine 6.5 (5.0-8.0); Protein,Urine Negative (Negative); Specific Gravity,Urine 1.009 (1.001-1.035); Urobilinogen,Urine <2.0 mg/dL (<2.0)
[2025-02-14 04:07] LABS: Influenza A Not Detected (Not Detectd); Influenza B Not Detected (Not Detectd); RSV Not Detected (Not Detectd)
[2025-02-14] MEDS ORDERED: MAG HYDROX/AL HYDROX/SIMETH 355 ML BOTTLE PO PRN (05:18)
[2025-02-14] MEDS ORDERED: MAGNESIUM HYDROXIDE 2,400 MG/30 ML CUP PO PRN (05:18)
[2025-02-14] MEDS: PALIPERIDONE 3 MG TAB.ER.24 PO SCH (08:29)
[2025-02-14] MEDS: NICOTINE 14MG/24HR PATCH TRANSDERM SCH (08:30)
[2025-02-14] MEDS: LORazepam 1 MG TAB PO PRN (09:23)
--- NOTE | 2025-02-14 09:34 | P.HP ---
Psychiatric H&P - . H&P Date: 02/14/25 History & Physical: Allergies Allergy/AdvReac Type Severity Reaction Status Date / Time No Known Allergies Allergy Verified 02/14/25 00:34 Vital Signs Temp 97.8 F 02/14/25 08:30 Pulse 72 02/14/25 08:30 Resp 16 02/14/25 06:12 BP 118/71 02/14/25 08:30 Pulse Ox 98 02/14/25 08:30 FiO2 Intake & Output 02/13/25 02/14/25 02/14/25 18:59 06:59 18:59 Weight 68.6 kg Laboratory Last Values Urine Color Colorless 02/14/25 00:43 Urine Appearance Clear (Clear) 02/14/25 00:43 Urine pH 6.5 (5.0-8.0) 02/14/25 00:43 Ur Specific [place] 1.009 (1.001-1.035) 02/14/25 00:43 Urine Protein Negative (Negative) 02/14/25 00:43 Urine Glucose (UA) Negative (Negative) 02/14/25 00:43 Urine Ketones Negative (Negative) 02/14/25 00:43 Urine Blood Negative (Negative) 02/14/25 00:43 Urine Nitrite Negative (Negative) 02/14/25 00:43 Urine Bilirubin Negative (Negative) 02/14/25 00:43 Urine Urobilinogen <2.0 mg/dL (<2.0) 02/14/25 00:43 Ur Leukocyte Esterase Negative (Negative) 02/14/25 00:43 Urine HCG, Qual Not Detected (Not Detectd) 02/14/25 00:43 Urine Opiates Screen Not Detected (NotDetected) 02/14/25 00:43 Ur Oxycodone Screen Not Detected (NotDetected) 02/14/25 00:43 Urine Methadone Screen Not Detected (NotDetected) 02/14/25 00:43 Ur Barbiturates Screen Not Detected (NotDetected) 02/14/25 00:43 U Tricyclic Antidepress Not Detected (NotDetected) 02/14/25 00:43 Ur Phencyclidine Scrn Not Detected (NotDetected) 02/14/25 00:43 Ur Amphetamines Screen Not Detected (NotDetected) 02/14/25 00:43 U Methamphetamines Scrn Not Detected (NotDetected) 02/14/25 00:43 U Benzodiazepines Scrn Not Detected (NotDetected) 02/14/25 00:43 Urine Cocaine Screen Not Detected (NotDetected) 02/14/25 00:43 U Marijuana (THC) Screen Detected (NotDetected) H 02/14/25 00:43 Influenza Type A (PCR) Not Detected (Not Detectd) 02/14/25 02:50 Influenza Type B (PCR) Not Detected (Not Detectd) 02/14/25 02:50 RSV (PCR) Not Detected (Not Detectd) 02/14/25 02:50 SARS-CoV-2 (PCR) Not Detected (Not Detectd) 02/14/25 02:50 02/14/25 09:20 IDENTIFYING DATA: Patient is a 34-year-old female currently living with her roommate collecting disability and in a relationship with her boyfriend HPI: The patient presented to the hospital under involuntary petition due to statements of voices telling her to cut her throat. The patient was recently released this month for similar incidents. The patient is well-known to this unit. Patient denies after she went home from her previous admission she started smoking cannabis daily again. Yesterday she started having auditory hallucinations (inside and outside of her head, male, constant, telling her that her boyfriend was going to be hurt and she needed to slice her throat). She notes that she is paranoid and feels that people are after her. She denies any visual hallucinations. She notes that her depression and anxiety are severe. She notes that she is averaging 6 hours at night and classifies this as not much. She notes that her energy is high. She notes that her appetite is normal. She notes that she struggles with concentration. She feels helpless and hopeless. She is having bouts of crying. She feels guilty shameful. She notes that she would not harm herself intentionally but the voices keep on telling her. The patient was visibly upset due to this. Patient denied any homicidal thoughts or access to guns. Collateral: The patient gave me permission to speak to her roommate Codi however there was no answer when trying to call her. Psychiatric review of systems: Bipolar disorder-negative OCD-negative PTSD-negative Anxiety-patient suffers from chronic worrying and grinding teeth, initiating sleep, muscle tension with nausea PAST PSYCHIATRIC HISTORY: The patient has a history of Unspecified psychotic disorder and intellectual disabled. Currently the patient is on Invega 3 mg twice daily. Patient has a history of being on risperidone, Melatonin and other mental health medications. Patient has had multiple hospitalizations this is her third in the last month at this facility. The patient follows up with [facility]. Patient has 1 prior suicide attempt by cutting her wrist. The patient denies any physical, verbal or sexual abuse growing up. She denies any past legal history. She denies any access to guns. PMH: as per ER note ALLERGIES: as per EMR CHEMICAL DEPENDENCY HISTORY: Caffeine-positive Tobacco-1 pack/day Cannabis-Daily Cocaine-history of use last time on her birthday FAMILY PSYCHIATRIC/SUBSTANCE USE HISTORY: Her brother and sister suffer from unknown mental health problems SOCIAL HISTORY: The patient was born and raised in [place] and notes that her childhood was "a loss". She notes that she completed high school but was in a special high school. She has been once and has 1 child from that marriage. She currently lives with her roommate and has a relationship with her boyfriend. She collects disability and notes that she is christian. She denies any service. MENTAL STATUS EXAM: General Appearance: Patient appears to be her stated age is alert, directable, and attempts to cooperate. Patient appears to have fair hygiene and grooming. The patient was overweight Behavior: The patient presents extremely emotional and upset and crying throughout the whole interview. She was pacing and restless Speech: Patient's speech is fluent and nonpressured. Mood/Affect: Patient reports their mood is depressed, affect is congruent and constricted. Suicidality/Homicidality: Patient denies having any homicidal ideation intent or plan. The patient denies any suicide intent but notes that auditory hallucinations are telling her to kill herself. Perceptions: Patient denies any visual hallucinations and notes that auditory hallucinations are constant with command hallucinations to kill herself. Though content/process: Patient notes that she is paranoid. Memory and concentration: AOX3, grossly intact for the purposes of this session. Can spell "WORLD" backwards Judgment and insight: Poor STRENGTHS/WEAKNESSES: strength is that patient is resilient. Weakness is that patient has poor judgment and is impulsive INTELLECT: Low Diagnosis: Unspecified psychotic disorder Cannabis use disorder Generalized anxiety disorder Intellectual disability Assessment: 34-year-old female with history of auditory hallucinations and cannabis use. The patient has had multiple admissions due to the auditory hallucinations being command in nature and telling her to kill herself. She has 1 prior suicide attempt by cutting her wrists. This makes her a danger to herself. Her UDS was positive for cannabis upon admission. Currently felt that with the multiple admissions in the positive UDS's for cannabis that this might be cannabis induced psychosis further intervening as needed. Patient is currently at the least restrictive level of care for her mental health problems and would be in danger if she left the hospital at this time. PLAN: -Patient is admitted under involuntary status to MHU for stabilization of psychiatric symptoms and safety. Patient has not signed adult voluntary form and medication consent and is placed in patient's chart. A second certification was completed and along with petition will be filed for court. -Medications : Restart Invega 3 mg take 1 tablet by mouth twice daily for psychosis -Ativan and Zyprexa PRN for agitation/aggression -Patient was informed of the risks, benefits and side effects of the medication and patient verbally consented to taking the medications. Patient signed med consent form and was placed in chart. -Internal Medicine consult to perform medical evaluation and physical. -NRT -nicotine patch -SW on board for discharge planning. Encourage patient to participate in groups to work on coping skills. Will await deferral and court date.
[2025-02-14] MEDS: NICOTINE GUM (POLACRILEX) 2 MG GUM BUCCAL PRN (09:35)
[2025-02-14] MEDS: ACETAMINOPHEN TAB 325 MG TAB PO PRN (18:09)
[2025-02-14] MEDS: IBUPROFEN 600 MG TAB PO PRN (19:55)
[2025-02-14] MEDS: MELATONIN 5 MG TABLET PO SCH (19:56)
--- NOTE | 2025-02-14 20:02 | P.HPIM ---
History of Present Illness H&P Date: 02/14/25 Chief Complaint: Medical evaluation This is a 34-year-old female patient with a past medical history of intellectual disability and unspecified psychotic disorder who presents to the hospital under involuntary petition due to auditory hallucinations and hearing voices to cut her throat. Patient is admitted under mental health. He does not have any other significant past medical history. She currently lives with her roommate Past medical history : Intellectual disability and psychosis Past surgical history : Prior Social history : She lives with her roommate. She smokes 1 pack of tobacco per day, no alcohol use and she smokes 1 joint of marijuana per day Review of system : Negative except what mentioned in HPI General: nontoxic, no distress, appears at stated age Derm: warm, dry, intact Head: atraumatic, normocephalic, symmetric Eyes: EOMI, anicteric sclera Mouth: no lip lesion, mucus membranes moist Cardiovascular: S1 S2 reg, no murmur, rubs, or gallops Lungs: CTA bilateral, no rales, no accessory muscle use Abdominal: soft, non-tender to palpataion, no appreciable organomegaly Extremities: no gross muscle atrophy, no edema, no contractures Neuro: Alert, Oriented, CNII-XII grossly intact, gait normal Psych: well appearing, appropriate affect II: Pupils equal and reactive, no RAPD, normal visual field and fundus III, IV, : EOM intact, no gaze preference or deviation V: normal VII: no facial asymmetry VIII: normal hearing to speech Assessment and plan : - Unspecified psychotic disorder/cannabis use disorder/intellectual disability : Patient currently on Ativan and Zyprexa as needed for agitation and aggression and managed by mental health Nicotine patch daily Thank you for the consult Time spent : 35 min Past Medical History Past Medical History: No Reported History Additional Past Medical History / Comment(s): developmental delay History of Any Multi-Drug Resistant Organisms: None Reported Past Surgical History: Section Past Anesthesia/Blood Transfusion Reactions: No Reported Reaction Smoking Status: Current every day smoker Medications and Allergies Home Medications Medication Instructions Recorded Confirmed Type Melatonin 10 mg PO HS 30 Days #60 tab 02/07/25 Rx Nicotine 14Mg/24Hr Patch [Habitrol] 1 patch TRANSDERM DAILY patch 02/07/25 Rx Paliperidone [Invega] 3 mg PO BID 30 Days #60 tab 02/07/25 Rx Allergies Allergy/AdvReac Type Severity Reaction Status Date / Time No Known Allergies Allergy Verified 02/14/25 00:34 Physical Exam Vitals: Vital Signs Temp Pulse Pulse Resp BP BP Pulse Ox 02/14/25 08:30 97.8 F 72 118/71 98 02/14/25 06:12 98.2 F 57 L 16 118/77 98 02/14/25 05:38 98.3 F 65 16 90/61 99 02/14/25 00:34 97.5 F L 85 16 137/80 99 Intake and Output 02/14/25 02/14/25 02/14/25 06:59 14:59 22:59 Other: Weight 68.6 kg Results Labs: Abnormal Lab Results - Last 24 Hours (Table) 02/14/25 Range/Units 00:43 U Marijuana (THC) Screen Detected H (NotDetected) Thrombosis Risk Factor Assmnt - Choose All That Apply Any of the Below Risk Factors Present?: No Other Risk Factors: No Other congenital or acquired thrombophilia - If yes, enter type in comment: No Thrombosis Risk Factor Assessment Level: Very Low Risk
--- NOTE | 2025-02-15 08:38 | P.PN ---
Progress Note - Text Progress Note Date: 02/15/25 Interval history: Patient was seen today for psychiatric follow-up. Patient was wandering in the hallway he was tearful. She was complaining of hearing loud voices in her head earlier today. States that she is upset because the medications have not calmed down and. Claims that he she did not like being on the Invega injection, we spoke about other medication alternatives she was agreeable to try Abilify. She states that she is able to eat well however claims that her sleep is very poor. Admits to depression at this time. Denies any visual hallucinations, denies any suicidal or homicidal ideations intent or plan. MENTAL STATUS EXAM: General Appearance: Patient appears to be short in stature, stated age is alert, directable, and attempts to cooperate. Patient appears to have fair hygiene and grooming. Behavior: The patient presents extremely emotional and upset and crying thro ughout the whole interview. She was pacing and restless Speech: Patient's speech is fluent and nonpressured. Mood/Affect: Patient reports their mood is depressed and anxiety, affect is congruent b and tearful Suicidality/Homicidality: Patient denies having any suicidal or homicidal ideation intent or plan. Perceptions: Patient denies any visual hallucinations and notes that auditory hallucinations are constant with command hallucinations to kill herself. Though content/process: Patient is not endorsing any paranoia today, thought process is fairly concrete. Memory and concentration: AOX3, grossly intact for the purposes of this session Judgment and insight: Poor, improving mildly Diagnosis: Unspecified psychotic disorder Cannabis use disorder Generalized anxiety disorder Intellectual disability PLAN: -Patient is admitted under voluntary status to MHU for stabilization of psychiatric symptoms and safety. Patient has signed adult voluntary form and medication consent and is placed in patient's chart. -Medications : Discontinue Invega and replaced with Abilify 5 mg daily, plan to increase as tolerated/needed for psychosis. Plan will be to transition onto long-acting injection to help ensure compliance. 3 mg take 1 tablet by mouth twice daily for psychosis -Ativan and Zyprexa PRN for agitation/aggression -NRT -nicotine patch -SW on board for discharge planning. Encourage patient to participate in groups to work on coping skills.
[2025-02-15] MEDS: ARIPiprazole 5 MG TAB PO SCH (08:47)
[2025-02-15] MEDS: traZODone HCL 50 MG TAB PO SCH (20:38)
--- NOTE | 2025-02-16 10:01 | P.PN ---
Progress Note - Text Progress Note Date: 02/16/25 Interval history: Patient was seen today for psychiatric follow-up. Patient was wandering in the hallway patient appears to be calmer today, more cooperative with the interview.. Claims that she is doing a bit better today with regards to her mood and anxiety. She was asking about when she will be discharged. She did appear to be somewhat restless during the conversation. She denied any side effects. Claims that she is feeling that the voices have improved mildly since yesterday. Is willing to continue increasing medication. Has been going to groups. She states that she is able to eat well however claims that her sleep is improved compared to yesterday. Denies any visual hallucinations, denies any suicidal or homicidal ideations intent or plan. MENTAL STATUS EXAM: General Appearance: Patient appears to be short in stature, stated age is alert, directable, and attempts to cooperate. Patient appears to have fair hygiene and grooming. Behavior: The patient presents calmer today, She was pacing and restless Speech: Patient's speech is fluent and nonpressured. Mood/Affect: Patient reports their mood is improving mildly, affect is congruent and less tearful Suicidality/Homicidality: Patient denies having any suicidal or homicidal ideation intent or plan. Perceptions: Patient denies any visual hallucinations and notes that auditory hallucinations are constant with command hallucinations to kill herself, but these are improving today. Though content/process: Patient is not endorsing any paranoia today, thought process is fairly concrete. Focused on discharge Memory and concentration: AOX3, grossly intact for the purposes of this session Judgment and insight: chromically Poor/limited, improving mildly Diagnosis: Unspecified psychotic disorder Cannabis use disorder Generalized anxiety disorder Intellectual disability PLAN: -Patient is admitted under voluntary status to [facility]HU for stabilization of psychiatric symptoms and safety. Patient has signed adult voluntary form and medication consent and is placed in patient's chart. -Medications : increase Abilify 10 mg daily starting tomorrow, plan to increase as tolerated/needed for psychosis. Plan will be to transition onto long-acting injection to help ensure compliance -Ativan and Zyprexa PRN for agitation/aggression -NRT -nicotine patch -SW on board for discharge planning. Encourage patient to participate in groups to work on coping skills. hopeful for discharge once patient stabilizes and then is transitioned onto [facility].
[2025-02-16] MEDS: ARIPiprazole 5 MG TAB PO ONE (10:35)
[2025-02-17] MEDS: ARIPiprazole 10 MG TAB PO SCH (09:10)
--- NOTE | 2025-02-17 12:24 | P.PN ---
Progress Note - Text Progress Note Date: 02/17/25 Interval history: Patient was seen today for psychiatric follow-up. Patient was laying in bed t shanthi. She was seen up earlier in group. She claims that she is still hearing the voices and they are telling her to kill her assault and "jump in the river". She states that she is still feeling depressed because of that and I do patient was wandering in the hallway patient appears to be calmer today, more cooperative with the interview. She did appear to be somewhat restless during the conversation and is reporting increased and pacing since the Abilify has been started. Also claims that she is getting a "charley horse" in her leg. Has been going to groups. She states that she is able to eat well however claims that her sleep is improved compared to yesterday. Denies any visual hallucinations, denies any suicidal or homicidal ideations intent or plan. MENTAL STATUS EXAM: General Appearance: Patient appears to be short in stature, stated age is alert, directable, and attempts to cooperate. Patient appears to have fair hygiene and grooming. Behavior: The patient presents calmer today, She was pacing and restless Speech: Patient's speech is fluent and nonpressured. Mood/Affect: Patient reports their mood is depressed and frustrated, affect is congruent and less tearful Suicidality/Homicidality: Patient denies having any suicidal or homicidal ideation intent or plan. Perceptions: Patient denies any visual hallucinations and notes that auditory hallucinations are constant with command hallucinations to kill herself Though content/process: Patient is not endorsing any paranoia today, thought process is fairly concrete. Memory and concentration: AOX3, grossly intact for the purposes of this session Judgment and insight: chromically Poor/limited, improving mildly Diagnosis: Unspecified psychotic disorder Cannabis use disorder Generalized anxiety disorder Intellectual disability PLAN: -Patient is admitted under voluntary status to MHU for stabilization of psychiatric symptoms and safety. Patient has signed adult voluntary form and medication consent and is placed in patient's chart. -Medications : Discontinue Abilify due to increase and side effects and poor efficacy. Will start Trilafon 4 mg twice daily for psychosis. -Ativan and Zyprexa PRN for agitation/aggression -NRT -nicotine patch -SW on board for discharge planning. Encourage patient to participate in groups to work on coping skills. hopeful for discharge once patient stabilizes
[2025-02-17] MEDS: PERPHENAZINE 4 MG TAB PO SCH (13:15)
[2025-02-17] MEDS: LORazepam 1 MG TAB PO PRN (20:21)
--- NOTE | 2025-02-18 11:19 | P.PN ---
Progress Note - Text Progress Note Date: 02/18/25 Interval history: Patient was seen today for psychiatric follow-up. Patient was laying in bed t shanthi and was agreeable to speak to health underwriter in the office. She appears to be a bit calmer today and less restless. She continues to appear to be somewhat upset and states that she is still hearing the voices telling her to harm herself. Claims that they have improved mildly since yesterday. We spoke again about compliance. She was fairly focused on being discharged she wants to go home with her boyfriend. Claims that she toss and turn write a bit last night will be increasing trazodone. States that she is eating well, only going to some groups. Denies any visual hallucinations, denies any suicidal or homicidal ideations intent or plan. MENTAL STATUS EXAM: General Appearance: Patient appears to be short in stature, stated age is alert, directable, and attempts to cooperate. Patient appears to have fair hygiene and grooming. Behavior: The patient presents calmer today, She was less restless, mildly upset Speech: Patient's speech is fluent and nonpressured. Mood/Affect: Patient reports their mood is frustrated, affect is congruent and less tearful Suicidality/Homicidality: Patient denies having any suicidal or homicidal ideation intent or plan. Perceptions: Patient denies any visual hallucinations and notes that auditory hallucinations are constant with command hallucinations to kill herself, improving mildly Though content/process: Patient is not endorsing any paranoia today, thought process is fairly concrete. Memory and concentration: AOX3, grossly intact for the purposes of this session Judgment and insight: chronically Poor/limited, improving mildly Diagnosis: Unspecified psychotic disorder Cannabis use disorder Generalized anxiety disorder Intellectual disability PLAN: -Patient is admitted under voluntary status to MHU for stabilization of psychiatric symptoms and safety. Patient has signed adult voluntary form and medication consent and is placed in patient's chart. -Medications : Increase Trilafon increase trazodone to 75 mg nightly for insomnia/mood. 8 mg twice daily for psychosis. -Ativan and Zyprexa PRN for agitation/aggression -NRT -nicotine patch -SW on board for discharge planning. Encourage patient to participate in groups to work on coping skills. hopeful for discharge early next week likely Friday if patient is improving.
[2025-02-18] MEDS: PERPHENAZINE 4 MG TAB PO STA (11:34)
[2025-02-18] MEDS: traZODone HCL 50 MG TAB PO SCH (19:58)
[2025-02-18] MEDS: PERPHENAZINE 4 MG TAB PO SCH (19:59)
--- NOTE | 2025-02-19 11:06 | P.PN ---
Progress Note - Text Progress Note Date: 02/19/25 Dictation was produced using [employer] dictation software. Please excuse any grammatical, word or spelling errors. Interval history: Patient was seen in the hallway and was directable and agreeable to speak with the casualty underwriter in the office for psychiatric follow-up. The patient states that she is feeing "good" today, she states that she slept well last night, it is reported that she slept 7 hours overnight. She admitted to good appetite. States that depression and anxiety are at the low to moderate side, she rated both at 3/10. She denied any current SI/HI or self harm, denied any intention or plan. She denied any current AVH. States that she had voices last night telling her "go slit my throat," states that medication was helping last night, and so far today no voices. She states that she has been taking her medications, denied any side effects. She denied any muscle stiffness, rigidity, abnormal movements, or drooling. An AIMs test was done and scored at 0. She has been feeling safe in the unit, and is getting along well with every one. MENTAL STATUS EXAM: General Appearance: Patient appears to be short in stature, stated age is alert, directable, and attempts to cooperate. Patient appears to have fair hygiene and grooming. Behavior: The patient presents calmer, and pleasant today, She was less restless, mildly upset Speech: Patient's speech is fluent and nonpressured. Mood/Affect: Patient reports their mood is " good," affect is congruent Suicidality/Homicidality: Patient denies having any suicidal or homicidal ideation intent or plan. Perceptions: Patient denies any auditory or visual hallucinations. She reported auditory hallucinations are constant with command hallucinations to kill herself last night, improving mildly Though content/process: Patient is not endorsing any paranoia today, thought process is fairly concrete. Memory and concentration: AOX3, grossly intact for the purposes of this session Judgment and insight: chronically Poor/limited, improving mildly Diagnosis: Unspecified psychotic disorder Cannabis use disorder Generalized anxiety disorder Intellectual disability Assessment/Plan: Continue with current diagnosis. Patient continues to meet criteria for inpatient psychiatric admission for symptom stabilization and safety. Patient will be maintained on current psychotropic medication regimen which include Trilafon 8 mg p.o. twice daily, which was increased on Friday to 8 mg at bedtime and 4 mg a.m., and today to 8 mg p.o. twice daily, trazodone 75 mg also was increased on Friday. Monitor for medication compliance and for any psychotropic medication side effects. The patient currently denied any side effects, denied any muscle stiffness, rigidity, abnormal movement, or drooling. Aims test done, scored at 0. Will continue to monitor ongoing response to treatment. Encouraged participation in milieu.
--- NOTE | 2025-02-20 10:56 | P.PN ---
Progress Note - Text Progress Note Date: 02/20/25 Dictation was produced using [employer] dictation software. Please excuse any grammatical, word or spelling errors. Interval history: Patient was seen in the hallway and was directable and agreeable to speak with the senior technical writer in the office for psychiatric follow-up. The patient states that she is feeling well today. States that she slept well last night, it is reported that she slept 6 hours last night. States that she has been eating well. States that depression, and anxiety are at the low to moderate side, she rated both at 3/10, patient seemed to be a little bit restless however she states that she is anxious to go back home. She denied any current SI/HI or self harm. She states that she does not have any current AVH, states that she last heard the voices 2 days ago, states that "they all gone." She has been compliant with her medication, she denied any current side effects, she denied any muscle stiffness, abnormal movements, rigidity or drooling, an aims test was done again today and still scored at 0, patient was educated on the side effect of the medication and was asked to let staff know if she has any of the side effects that we discussed, reported that she is not familiar with Cogentin, or propranolol, and did not recall using it in the past. States that she feel safe in the unit, and is tending to her ADL. States that she has been talking to her SO, and states that she is planning to be back with him after discharge. MENTAL STATUS EXAM: General Appearance: Patient appears to be short in stature, stated age is alert, directable, and attempts to cooperate. Patient appears to have fair hygiene and grooming. Behavior: The patient presents calmer, and pleasant today, She was less restless, mildly upset Speech: Patient's speech is fluent and nonpressured. Mood/Affect: Patient reports their mood is " good," affect is congruent Suicidality/Homicidality: Patient denies having any suicidal or homicidal ideation intent or plan. Perceptions: Patient denies any auditory or visual hallucinations. She reported auditory hallucinations are constant with command hallucinations to kill herself last night, improving mildly Though content/process: Patient is not endorsing any paranoia today, thought process is fairly concrete. Memory and concentration: AOX3, grossly intact for the purposes of this session Judgment and insight: chronically Poor/limited, improving mildly Diagnosis: Unspecified psychotic disorder Cannabis use disorder Generalized anxiety disorder Intellectual disability Assessment/Plan: Continue with current diagnosis. Patient continues to meet criteria for inpatient psychiatric admission for symptom stabilization and safety. Patient will be maintained on current psychotropic medication regimen which include Trilafon 8 mg p.o. twice daily, trazodone 75 mg and melatonin 10 mg p.o. at bedtime. Monitor for medication compliance and for any psychotropic medication side effects. The patient currently denied any side effects, denied any muscle stiffness, rigidity, abnormal movement, or drooling. Aims test done, scored at 0, will continue to monitor for side effect and may consider propranolol or Cogentin if needed since patient seems to be a little bit restless however she reported that she is mainly anxious to go back home. Will continue to monitor ongoing response to treatment. Encouraged participation in milieu.
--- NOTE | 2025-02-21 11:11 | P.PN ---
Progress Note - Text Progress Note Date: 02/21/25 Interval history: Patient was seen today for psychiatric follow-up. Patient was seen in group e arlier today, laying down in the lounge. Has been more social with others. Patient appeared to be calmer today with telegraphic typewriter operator, claims that the voices have stopped for today, claims that she likes taking her medications. She states that her mood and anxiety have been improving. Claims that she feels that she is doing better overall with asking about potential discharge, we spoke about [facility] needing to arrange for a [facility] program and likely discharge tomorrow. Claims that she is sleeping fairly at nighttime. Denies any visual hallucinations, denies any suicidal or homicidal ideations intent or plan. MENTAL STATUS EXAM: General Appearance: Patient appears to be short in stature, stated age is alert, directable, and attempts to cooperate. Patient appears to have fair hygiene and grooming. Behavior: The patient presents calmer today, more cooperative today, Speech: Patient's speech is fluent and nonpressured. Mood/Affect: Patient reports their mood is "better", affect is congruent Suicidality/Homicidality: Patient denies having any suicidal or homicidal ideation intent or plan. Perceptions: Patient denies any visual hallucinations and auditory hallucinations Though content/process: Patient is not endorsing any paranoia today, thought process is fairly concrete. Improving mildly Memory and concentration: AOX3, grossly intact for the purposes of this session Judgment and insight: chronically Poor/limited, improving mildly Diagnosis: Unspecified psychotic disorder Cannabis use disorder Generalized anxiety disorder Intellectual disability PLAN: -Patient is admitted under voluntary status to [facility] for stabilization of psychiatric symptoms and safety. Patient has signed adult voluntary form and medication consent and is placed in patient's chart. -Medications : Trilafon 8 mg twice daily for psychosis. increase trazodone to 100 mg nightly for insomnia/mood -Ativan and Zyprexa PRN for agitation/aggression -NRT -nicotine patch - on board for discharge planning. Encourage patient to participate in groups to work on coping skills. hopeful for discharge tomorrow if patient is improving.
[2025-02-21] MEDS: traZODone HCL 100 MG TAB PO SCH (20:46)
[2025-02-22 08:50] VITALS: BP 113/71; PULSE 76; RESP 18; TEMP 97.8
--- NOTE | 2025-02-22 10:25 | P.DS ---
Providers Date of admission: 02/14/25 05:11 Expected date of discharge: 02/22/25 Attending physician: Darryl Hoang MD Consults: 02/14/25 05:18 Consult Physician Routine Consulting Provider: Mat Mendes Consult Reason/Comments: H&P Do you want consulting provider notified?: Yes Primary care physician: Stated None - Discharge Diagnosis(es) (1) Unspecified psychosis Current Visit: Yes Status: Acute Priority: High (2) Cannabis use disorder Current Visit: Yes Status: Acute Priority: Medium (3) Generalized anxiety disorder Current Visit: Yes Status: Acute Priority: Medium (4) Intellectual disability Current Visit: Yes Status: Acute Priority: Medium Hospital Course: Admission HPI: Admission note was completed by Dr Mcdonald "patient is a 34-year-old female currently living with her roommate collecting disability and in a relationship with her boyfriend. The patient presented to the hospital under involuntary petition due to statements of voices telling her to cut her throat. The patient was recently released this month for similar incidents. The patient is well- known to this unit. Patient denies after she went home from her previous admission she started smoking cannabis daily again. Yesterday she started having auditory hallucinations (inside and outside of her head, male, constant, telling her that her boyfriend was going to be hurt and she needed to slice her throat). She notes that she is paranoid and feels that people are after her. She denies any visual hallucinations. She notes that her depression and anxiety are severe. She notes that she is averaging 6 hours at night and classifies this as not much. She notes that her energy is high. She notes that her appetite is normal. She notes that she struggles with concentration. She feels helpless and hopeless. She is having bouts of crying. She feels guilty shameful. She notes that she would not harm herself intentionally but the voices keep on telling her. The patient was visibly upset due to this. Patient denied any homicidal thoughts or access to guns." Hospital course: Upon admission to the unit patient was directable and agreeable to commence treatment and signed adult voluntary form. Patient was initially in distress, psychotic hearing voices however with time and treatment patient got along well with other patients on the unit and followed unit protocol. Patient was compliant with the medications and denied any side effects throughout hospital course. Patient was started on Abilify however was not able to tolerate medication well due to side effects, switched onto Trilafon increased to 8 mg twice daily for psychosis, trazodone 100 mg nightly for insomnia/mood. Patient spoke of her stressors and engaged in therapy both group/activity therapy. Patient was also seen by medical team for history and physical exam. Throughout the course of the hospitalization patient gradually improved with regards to mood, anxiety, psychosis, sleep and returned back to their baseline level of functioning. On the day of discharge patient denied any suicidal or homicidal ideations intent or plan denied any auditory or visual hallucinations. Patient endorsed wanting to live for their health and family. The patient denied any access to guns or weapons. Patient denied any paranoia and did not endorse any delusions. Patient does have a significant history of substance abuse and was counseled on abstaining from all substances including alcohol and marijuana. Patient elected to do outpatient substance use treatment program through their outpatient provider.. Patient was also counseled on the medications and need for regular compliance and was encouraged to follow-up with their outpatient appointment for mental health and also for primary care. Due to the patient having several psychiatric hospitalizations recently, patient will be followed along by [facility] program through [facility] Mental status exam: General Appearance: Patient appears to be short in stature, stated age is alert, pleasant, and cooperative. Patient is in no acute distress and has improved hygiene and grooming Behavior: Patient is calmly seated without any agitated behavior. Speech: Patient's speech is fluent and nonpressured. Mood/Affect: Patient reports their mood is "better", affect is congruent and euthymic. Suicidality/Homicidality: Patient denies having any suicidal or homicidal ideation intent or plan. Perceptions: Patient denies any auditory or visual hallucinations. Though content/process: There is no evidence of any delusional thought content and thought process is linear and goal-directed. Memory and concentration: AOX3, grossly intact for the purposes of this session. Can spell "WORLD" backwards correctly. Judgment and insight: Chronically limited, improved with guarded prognosis Impression: Psychosis unspecified Cannabis use disorder Generalized anxiety disorder Intellectual disability Plan: -Continue with discharge today as patient has improved and stabilized psychiatrically and is not currently an imminent threat to themself and/or others. Patient will remain at chronically elevated risk for harm to self and/or others due to their impulsivity and chronically limited insight/judgment. -Continue medications: Trilafon 8 mg twice daily for psychosis, trazodone 100 mg nightly for insomnia/mood. -Patient was counseled on the need for medication compliance and appropriate follow-up at mental health and also primary care for medical issues. Patient verbalized understanding and agreed. -Social work to help coordinate patients discharge today. also to ensure safe home environment that guns/weapons are either removed from the home or locked away. Social work also to arrange for patients follow up appointments with [facility] and next step program for psychiatric care along with follow up with primary care provider. -Patient counseled on abstaining from recreational drugs and marijuana and alcohol. Was informed/educated on the adverse effects on their physical and mental health. Patient verbally agreed and understood -Patient was instructed to return to the hospital or seek immediate medical care if their psychiatric or medical symptoms do worsen or reoccur. Allergies Allergy/AdvReac Type Severity Reaction Status Date / Time No Known Allergies Allergy Verified 02/14/25 00:34 Laboratory Results Urine Color Colorless 02/14/25 00:43 Urine Appearance Clear (Clear) 02/14/25 00:43 Urine pH 6.5 (5.0-8.0) 02/14/25 00:43 Ur Specific [place] 1.009 (1.001-1.035) 02/14/25 00:43 Urine Protein Negative (Negative) 02/14/25 00:43 Urine Glucose (UA) Negative (Negative) 02/14/25 00:43 Urine Ketones Negative (Negative) 02/14/25 00:43 Urine Blood Negative (Negative) 02/14/25 00:43 Urine Nitrite Negative (Negative) 02/14/25 00:43 Urine Bilirubin Negative (Negative) 02/14/25 00:43 Urine Urobilinogen <2.0 mg/dL (<2.0) 02/14/25 00:43 Ur Leukocyte Esterase Negative (Negative) 02/14/25 00:43 Urine HCG, Qual Not Detected (Not Detectd) 02/14/25 00:43 Urine Opiates Screen Not Detected (NotDetected) 02/14/25 00:43 Ur Oxycodone Screen Not Detected (NotDetected) 02/14/25 00:43 Urine Methadone Screen Not Detected (NotDetected) 02/14/25 00:43 Ur Barbiturates Screen Not Detected (NotDetected) 02/14/25 00:43 U Tricyclic Antidepress Not Detected (NotDetected) 02/14/25 00:43 Ur Phencyclidine Scrn Not Detected (NotDetected) 02/14/25 00:43 Ur Amphetamines Screen Not Detected (NotDetected) 02/14/25 00:43 U Methamphetamines Scrn Not Detected (NotDetected) 02/14/25 00:43 U Benzodiazepines Scrn Not Detected (NotDetected) 02/14/25 00:43 Urine Cocaine Screen Not Detected (NotDetected) 02/14/25 00:43 U Marijuana (THC) Screen Detected (NotDetected) H 02/14/25 00:43 Influenza Type A (PCR) Not Detected (Not Detectd) 02/14/25 02:50 Influenza Type B (PCR) Not Detected (Not Detectd) 02/14/25 02:50 RSV (PCR) Not Detected (Not Detectd) 02/14/25 02:50 SARS-CoV-2 (PCR) Not Detected (Not Detectd) 02/14/25 02:50 Vital Signs Temp 97.8 F 02/22/25 08:50 Pulse 76 02/22/25 08:50 Resp 18 02/22/25 08:50 BP 113/71 02/22/25 08:50 Pulse Ox 97 02/22/25 08:50 FiO2 Patient Condition at Discharge: Stable Plan - Discharge Summary Discharge Rx Participant: No New Discharge Prescriptions: New traZODone HCL [Desyrel] 100 mg PO HS 30 Days #30 tab Nicotine 14Mg/24Hr Patch [Habitrol] 1 patch TRANSDERM DAILY 14 Days #14 patch Ibuprofen [Motrin] 600 mg PO Q6HR PRN tab PRN Reason: Moderate Pain (Scale 4 To 6) Nicotine Gum (Polacrilex) [Nicorette] 2 mg BUCCAL Q4HR PRN pieceofgum PRN Reason: Nicotine Cravings Perphenazine [Trilafon] 8 mg PO BID 30 Days #120 tab Acetaminophen Tab [Tylenol] 650 mg PO Q4HR PRN tab PRN Reason: Mild Pain (Scale 1 To 3) Continue Melatonin 10 mg PO HS 30 Days #60 tab Discontinued Nicotine 14Mg/24Hr Patch [Habitrol] 1 patch TRANSDERM DAILY patch Paliperidone [Invega] 3 mg PO BID 30 Days #60 tab Discharge Medication List Acetaminophen Tab [Tylenol] 650 mg PO Q4HR PRN tab 02/22/25 [Rx] Ibuprofen [Motrin] 600 mg PO Q6HR PRN tab 02/22/25 [Rx] Melatonin 10 mg PO HS 30 Days #60 tab 02/22/25 [Rx] Nicotine 14Mg/24Hr Patch [Habitrol] 1 patch TRANSDERM DAILY 14 Days #14 patch 02/22/25 [Rx] Nicotine Gum (Polacrilex) [Nicorette] 2 mg BUCCAL Q4HR PRN pieceofgum 02/22/25 [Rx] Perphenazine [Trilafon] 8 mg PO BID 30 Days #120 tab 02/22/25 [Rx] traZODone HCL [Desyrel] 100 mg PO HS 30 Days #30 tab 02/22/25 [Rx] Follow up Appointment(s)/Referral(s): [facility], Med [Other] - 1 Week [facility] [Outside] - 02/23/25 9:00 am (02/23 at 9am with Brian Alexander 03/07 at 10am with Carolina Elliott NP) Patient Instructions/Handouts: Depression (DC), Anxiety (ED), Psychotic Disorder (DC) Activity/Diet/Wound Care/Special Instructions: Avoid the use of street drugs and alcohol. Take all medications as prescribed. When you are in need of refills on your medications, please contact your medical provider and/or outpatient psychiatrist/provider to have this done. Please go to your scheduled outpatient appointment for aftercare treatment. If symptoms return or become worse, call the crisis line at and/or go to the nearest emergency room for evaluation. National Suicide Hotline [address] confidentiality statement: "The information contained in this communication, including attachments, is confidential, may be privileged, and is intended only for the use of the named recipient(s). Unauthorized use, disclosure, forwarding or copying is strictly prohibited and may be unlawful. If you have received this communication in error, please notify me IMMEDIATELY at the phone number or pager listed above. Discharge Disposition: HOME SELF-CARE
== END 2025-02-22 11:49 | disposition home or self-care (01) | DRG 750 ==
LOC: EC 00:29 → 3MHU 05:11
PROVIDERS: ADMIT Psychiatry & Neurology Psychiatry; ATTEND Psychiatry & Neurology Psychiatry
DX: F29 Unspecified psychosis not due to a substance or known physiological condition (principal); F12.10 Cannabis abuse, uncomplicated; F41.1 Generalized anxiety disorder; F79 Unspecified intellectual disabilities; F32.A Depression, unspecified; M54.50 Low back pain, unspecified; G47.00 Insomnia, unspecified; F17.210 Nicotine dependence, cigarettes, uncomplicated; Z79.899 Other long term (current) drug therapy; Z91.51 Personal history of suicidal behavior; Z71.51 Drug abuse counseling and surveillance of drug abuser
CPT/HCPCS: 80306; 81003; 81025; 82075; 87636; 99285

== ENCOUNTER 2025-03-18 12:19 | Inpatient (IN) | payer MEDICAID, OTHER ==
--- NOTE | 2025-03-18 13:06 | ED ---
General Adult HPI - General Chief complaint: Psychiatric Symptoms Stated complaint: Psych eval Time Seen by Provider: 03/18/25 12:34 Source: patient, RN notes reviewed Mode of arrival: ambulatory Limitations: no limitations - History of Present Illness Initial comments: 34-year-old female presents to the emergency department for mental health evaluation. Patient reports having auditory hallucinations. Patient also admits that she has afraid that she is going to harm herself. She does not have any plan. Patient was recently hospitalized for her mental health. She is unsure what her medication regimen consist of currently. - Related Data Previous Rx's Medication Instructions Recorded Melatonin 10 mg PO HS 30 Days #60 tab 02/22/25 Perphenazine [Trilafon] 8 mg PO BID 30 Days #120 tab 02/22/25 traZODone HCL [Desyrel] 100 mg PO HS 30 Days #30 tab 02/22/25 Allergies Allergy/AdvReac Type Severity Reaction Status Date / Time No Known Allergies Allergy Verified 03/18/25 14:42 Review of Systems ROS Statement: Those systems with pertinent positive or pertinent negative responses have been documented in the HPI. ROS Other: All systems not noted in ROS Statement are negative. Past Medical History Past Medical History: No Reported History Additional Past Medical History / Comment(s): developmental delay History of Any Multi-Drug Resistant Organisms: None Reported Past Surgical History: Section Past Anesthesia/Blood Transfusion Reactions: No Reported Reaction Past Psychological History: Depression Smoking Status: Current every day smoker Past Alcohol Use History: None Reported Past Drug Use History: Marijuana - Past Family History Mother Family Medical History: Cancer General Exam Limitations: no limitations General appearance: alert, in no apparent distress Head exam: Present: atraumatic, normocephalic, normal inspection Eye exam: Present: normal appearance, PERRL, EOMI. Absent: scleral icterus, conjunctival injection, periorbital swelling ENT exam: Present: normal exam, mucous membranes moist Neck exam: Present: normal inspection. Absent: tenderness, meningismus, lymphadenopathy Respiratory exam: Present: normal lung sounds bilaterally. Absent: respiratory distress, wheezes, rales, rhonchi, stridor Cardiovascular Exam: Present: regular rate, normal rhythm, normal heart sounds. Absent: systolic murmur, diastolic murmur, rubs, gallop, clicks Neurological exam: Present: alert, oriented X3 Psychiatric exam: Present: normal affect, normal mood Skin exam: Present: warm, dry, intact, normal color. Absent: rash Course Vital Signs 03/18/25 12:30 Temperature 98.0 F Pulse Rate 67 Respiratory 18 Rate Blood Pressure 121/73 O2 Sat by Pulse 99 Oximetry Medical Decision Making - Medical Decision Making Was pt. sent in by a medical professional or institution (, PA, SURGICAL PROCESSOR, urgent care, hospital, or fdc...) When possible be specific @ -No Did you speak to anyone other than the patient for history (EMS, parent, family, police, friend...)? What history was obtained from this source @ -No Did you review nursing and triage notes (agree or disagree)? Why? @ -I reviewed and agree with nursing and triage notes Were old charts reviewed (outside hosp., previous admission, EMS record, old EKG, old radiological studies, urgent care reports/EKG's, fdc records)? Report findings @ -No old charts were reviewed Differential Diagnosis (chest pain, altered mental status, abdominal pain women, abdominal pain men, vaginal bleeding, weakness, fever, dyspnea, syncope, headache, dizziness, GI bleed, back pain, seizure, CVA, palpatations, mental health, musculoskeletal)? @ -Differential Mental Health Depression, anxiety, bipolar, psychosis, schizophrenia, borderline personality, situational depression, adjustment disorder, behavioral disorder, brain tumor, malingering, substance abuse, encephalopathy, medication reaction, dementia, hypothyroidism, degenerative neurologic disorder, lupus.... This is not meant to be all-inclusive list EKG interpreted by me (3pts min.). @ -None X-rays interpreted by me (1pt min.). @ -None done CT interpreted by me (1pt min.). @ -None done U/S interpreted by me (1pt. min.). @ -None done What testing was considered but not performed or refused? (CT, X-rays, U/S, labs)? Why? @ -None What meds were considered but not given or refused? Why? @ -None Did you discuss the management of the patient with other professionals (professionals i.e. , MIGUEL, SURGICAL PROCESSOR, lab, RT, psych nurse, manager social, wood heel flap trimmer, teacher, foreign policy officer, rehabilitation case coordinator)? Give summary @ -Management discussed with the EPS recommending inpatient treatment for this patient Was smoking cessation discussed for >3mins.? @ -No Was critical care preformed (if so, how long)? @ -No Were there social determinants of health that impacted care today? How? (Homelessness, low income, unemployed, alcoholism, drug addiction, melo sportation, low edu. Level, literacy, decrease access to med. care, long term, rehab)? @ -No Was there de-escalation of care discussed even if they declined (Discuss DNR or withdrawal of care, Hospice)? DNR status @ -No What co-morbidities impacted this encounter? (DM, HTN, Smoking, COPD, CAD, Cancer, CVA, ARF, Chemo, Hep., AIDS, mental health diagnosis, sleep apnea, morbid obesity)? @ -None Was patient admitted / discharged? Hospital course, mention meds given and route, prescriptions, significant lab abnormalities, going to OR and other pertinent info. @ -Admitted. Patient presented to the emergency department for mental health evaluation. Patient was cleared from a medical standpoint and evaluated by EPS. EPS recommended inpatient treatment for this patient. Patient will be transferred to the psychiatric unit. Undiagnosed new problem with uncertain prognosis? @ -No Drug Therapy requiring intensive monitoring for toxicity (Heparin, Nitro, Insulin, Cardizem)? @ -No Were any procedures done? @ -No Diagnosis/symptom? @ -Suicidal ideation Acute, or Chronic, or Acute on Chronic? @ -Acute Uncomplicated (without systemic symptoms) or Complicated (systemic symptoms)? @ -Uncomplicated Side effects of treatment? @ -No Exacerbation, Progression, or Severe Exacerbation? @ -No Poses a threat to life or bodily function? How? (Chest pain, USA, NC, pneumonia, PE, COPD, DKA, ARF, appy, cholecystitis, CVA, Diverticulitis, Homicidal, Suicidal, threat to staff... and all critical care pts) @ -No - Lab Data Result diagrams: 03/19/25 08:21 03/19/25 08:21 Lab Results 03/18/25 03/18/25 03/18/25 Range/Units 13:04 13:04 14:51 Urine Color Colorless Urine Appearance Clear (Clear) Urine pH 6.5 (5.0-8.0) Ur Specific [place] 1.008 (1.001-1.035) Urine Protein Negative (Negative) Urine Glucose (UA) Negative (Negative) Urine Ketones Negative (Negative) Urine Blood Negative (Negative) Urine Nitrite Negative (Negative) Urine Bilirubin Negative (Negative) Urine Urobilinogen <2.0 (<2.0) mg/dL Ur Leukocyte Esterase Negative (Negative) Urine HCG, Qual Not Detected (Not Detectd) Urine Opiates Screen Not Detected (NotDetected) Ur Oxycodone Screen Not Detected (NotDetected) Urine Methadone Screen Not Detected (NotDetected) Ur Barbiturates Screen Not Detected (NotDetected) U Tricyclic Antidepress Not Detected (NotDetected) Ur Phencyclidine Scrn Not Detected (NotDetected) Ur Amphetamines Screen Not Detected (NotDetected) U Methamphetamines Scrn Not Detected (NotDetected) U Benzodiazepines Scrn Not Detected (NotDetected) Urine Cocaine Screen Not Detected (NotDetected) U Marijuana (THC) Screen Detected H (NotDetected) SARS-CoV-2 (PCR) Not Detected (Not Detectd) Disposition Clinical Impression: Suicidal ideation Disposition: TRANSFER TO PSYCH HOSP/UNIT Condition: Stable Is patient prescribed a controlled substance at d/c from ED?: No
[2025-03-18 13:50] LABS: Bilirubin,Urine Negative (Negative); Blood,Urine Negative (Negative); Color,Urine Colorless; Glucose,Urine (UA) Negative (Negative); Ketones,Urine Negative (Negative); Leukocyte Esterase,Urine Negative (Negative); Nitrite,Urine Negative (Negative); PH, Urine 6.5 (5.0-8.0); Protein,Urine Negative (Negative); Specific Gravity,Urine 1.008 (1.001-1.035); Urobilinogen,Urine <2.0 mg/dL (<2.0)
[2025-03-18 13:57] LABS: Barbiturate Screen,Urine Not Detected (NotDetected); Benzodiazepines Screen,Urine Not Detected (NotDetected); Opiate Screen,Urine Not Detected (NotDetected); Oxycodone Screen, Urine Not Detected (NotDetected); Phencyclidine Screen,Urine Not Detected (NotDetected); Tricyclic Antidepressant,Urine Not Detected (NotDetected); Urn Cannabinoid Scrn Detected (NotDetected)
[2025-03-18] MEDS: LORazepam 1 MG TAB PO STA (14:48)
[2025-03-18] MEDS ORDERED: MAG HYDROX/AL HYDROX/SIMETH 355 ML BOTTLE PO PRN (18:08)
[2025-03-18] MEDS ORDERED: IBUPROFEN 600 MG TAB PO PRN (18:08)
[2025-03-18] MEDS ORDERED: MAGNESIUM HYDROXIDE 2,400 MG/30 ML CUP PO PRN (18:08)
[2025-03-18] MEDS ORDERED: LORazepam 1 MG/0.5 ML VIAL IM PRN (18:08)
[2025-03-18] MEDS ORDERED: HALOPERIDOL LACTATE 5 MG/ML 1 ML VIAL IM PRN (18:08)
[2025-03-18] MEDS ORDERED: NICOTINE GUM (POLACRILEX) 2 MG GUM BUCCAL PRN (19:55)
[2025-03-18] MEDS: MELATONIN 5 MG TABLET PO SCH (20:17)
--- NOTE | 2025-03-18 22:26 | P.CONS ---
History of Present Illness - Reason for Consult Consult date: 03/18/25 medical comanagmenet - Chief Complaint Psychosis - History of Present Illness Megan is a 34-year-old female past medical history significant for intellectual disability depression and cannabis use. She presents the hospital due to auditory hallucinations. She reports that she has been having auditory hallucinations for approximately 6 days. She reports hallucinations have been informing her to hurt herself. She reports that she is otherwise compliant with her medications. She reports that she uses tobacco-she vapes and also uses cannabis. She reports that she does not use alcohol. She is currently seen in mental health unit. At the time of this writing she has urinalysis that was unremarkable. Urine hCG is negative. Urine drug is positive for cannabis. Review of Systems ROS negative except for HPI Past Medical History Past Medical History: No Reported History Additional Past Medical History / Comment(s): developmental delay History of Any Multi-Drug Resistant Organisms: None Reported Past Surgical History: Section Past Anesthesia/Blood Transfusion Reactions: No Reported Reaction Past Psychological History: Depression Smoking Status: Current every day smoker Past Alcohol Use History: None Reported Past Drug Use History: Marijuana Medications and Allergies Home Medications Medication Instructions Recorded Confirmed Type Melatonin 10 mg PO HS 30 Days #60 tab 02/22/25 03/18/25 Rx Perphenazine [Trilafon] 8 mg PO BID 30 Days #120 tab 02/22/25 03/18/25 Rx traZODone HCL [Desyrel] 100 mg PO HS 30 Days #30 tab 02/22/25 03/18/25 Rx Allergies Allergy/AdvReac Type Severity Reaction Status Date / Time No Known Allergies Allergy Verified 03/18/25 14:42 Physical Exam Vitals: Vital Signs Temp Pulse Pulse Resp BP BP Pulse Ox 03/18/25 18:55 98 F 97 18 116/72 97 03/18/25 18:36 98.5 F 54 L 16 103/65 99 03/18/25 12:30 98.0 F 67 18 121/73 99 Intake and Output 03/18/25 03/18/25 03/18/25 06:59 14:59 22:59 Other: Weight 74.843 kg 69.4 kg General: non toxic, no distress, Derm: warm, dry Head: atraumatic, normocephalic, symmetric Eyes: EOMI, no lid lag, anicteric sclera, pupils equal round reactive to light ENT: Nose and ears atraumatic, no thrush, no pharyngeal erythema Neck: No thyromegaly, no cervical lymphadenopathy, trachea midline, supple Mouth: no lip lesion, mucus membranes moist Cardiovascular: S1S2 reg, no murmur Lungs: clear to ascultation bilateral, no ronchi, no rales, no wheeze, no accessory muscle use Abdominal: soft, nontender to palpation, no guarding Ext: no gross muscle atrophy Neuro: Moving all extremity spontaneously Psych: flat effect Results Labs: Abnormal Lab Results - Last 24 Hours (Table) 03/18/25 Range/Units 13:04 U Marijuana (THC) Screen Detected H (NotDetected) Assessment and Plan Assessment: #) Psychosis with auditory hallfucinations, primary managmenet as per pscyhiotry team #) tobacco use, uses vaping products. recommendd cessation. nicotine patch while inpatient #) Cannabis use with history of crack cocaine use and methamphine use. uds positive for cannabis. recommend cessation CBC, cmp, a1c lipid profile tsh pending at the time of this writing. thank you for allowing us to take care of this patient. please do not hesistate to contact us for any questions
[2025-03-19] MEDS: ACETAMINOPHEN TAB 325 MG TAB PO PRN (06:53)
[2025-03-19] MEDS: LORazepam 1 MG TAB PO PRN (06:54)
[2025-03-19 09:26] LABS: Basophils # (A) 0.05 10*3/uL (0.00-0.10); Basophils % (A) 0.7 %; Eosinophils # (A) 0.06 10*3/uL (0.04-0.35); Eosinophils % (A) 0.8 %; HCT 40.9 % (37.2-46.3); HGB 13.2 g/dL (12.0-15.0); Lymphocytes # (A) 1.71 10*3/uL (0.90-5.00); Lymphocytes % (A) 23.0 %; MCH 28.5 pg (27.0-32.0); MCHC 32.3 g/dL (32.0-37.0); MCV 88.3 fL (80.0-97.0); Monocytes # (A) 0.55 10*3/uL (0.20-1.00); Monocytes % (A) 7.4 %; Neutrophils # (A) 5.03 10*3/uL (1.80-7.70); Neutrophils % (A) 67.8 %; Platelet Count 301 10*3/uL (140-440); RBC 4.63 10*6/uL (4.10-5.20); RDW 12.9 % (11.5-14.5); WBC 7.42 10*3/uL (4.50-10.00)
[2025-03-19 09:41] LABS: ALT 14 U/L (4-34); AST 16 U/L (14-36); African American GFR (CKD) >90 (>60 ml/min/1.73 sqM); Albumin 4.5 g/dL (3.5-5.0); Alkaline Phosphatase 70 U/L (38-126); Anion Gap 8 mmol/L; Blood Urea Nitrogen 11 mg/dL (7-17); Calcium 9.6 mg/dL (8.4-10.2); Carbon Dioxide 25 mmol/L (22-30); Chloride 105 mmol/L (98-107); Glucose 109 mg/dL (74-99); Non-African American GFR(CKD) >90 (>60 ml/min/1.73 sqM); Potassium 4.8 mmol/L (3.5-5.1); Sodium 138 mmol/L (137-145); Total Protein 6.9 g/dL (6.3-8.2)
--- NOTE | 2025-03-19 10:11 | P.HP ---
Psychiatric H&P - . H&P Date: 03/19/25 History & Physical: Allergies Allergy/AdvReac Type Severity Reaction Status Date / Time No Known Allergies Allergy Verified 03/18/25 14:42 Vital Signs Temp 97.2 F L 03/18/25 21:00 Pulse 57 L 03/18/25 21:00 Resp 16 03/18/25 21:00 BP 99/67 03/18/25 21:00 Pulse Ox 100 03/18/25 21:00 FiO2 Intake & Output 03/18/25 03/19/25 03/19/25 18:59 06:59 18:59 Weight 74.843 kg 69.4 kg Laboratory Last Values Urine Color Colorless 03/18/25 13:04 Urine Appearance Clear (Clear) 03/18/25 13:04 Urine pH 6.5 (5.0-8.0) 03/18/25 13:04 Ur Specific [place] 1.008 (1.001-1.035) 03/18/25 13:04 Urine Protein Negative (Negative) 03/18/25 13:04 Urine Glucose (UA) Negative (Negative) 03/18/25 13:04 Urine Ketones Negative (Negative) 03/18/25 13:04 Urine Blood Negative (Negative) 03/18/25 13:04 Urine Nitrite Negative (Negative) 03/18/25 13:04 Urine Bilirubin Negative (Negative) 03/18/25 13:04 Urine Urobilinogen <2.0 mg/dL (<2.0) 03/18/25 13:04 Ur Leukocyte Esterase Negative (Negative) 03/18/25 13:04 Urine HCG, Qual Not Detected (Not Detectd) 03/18/25 13:04 Urine Opiates Screen Not Detected (NotDetected) 03/18/25 13:04 Ur Oxycodone Screen Not Detected (NotDetected) 03/18/25 13:04 Urine Methadone Screen Not Detected (NotDetected) 03/18/25 13:04 Ur Barbiturates Screen Not Detected (NotDetected) 03/18/25 13:04 U Tricyclic Antidepress Not Detected (NotDetected) 03/18/25 13:04 Ur Phencyclidine Scrn Not Detected (NotDetected) 03/18/25 13:04 Ur Amphetamines Screen Not Detected (NotDetected) 03/18/25 13:04 U Methamphetamines Scrn Not Detected (NotDetected) 03/18/25 13:04 U Benzodiazepines Scrn Not Detected (NotDetected) 03/18/25 13:04 Urine Cocaine Screen Not Detected (NotDetected) 03/18/25 13:04 U Marijuana (THC) Screen Detected (NotDetected) H 03/18/25 13:04 SARS-CoV-2 (PCR) Not Detected (Not Detectd) 03/18/25 14:51 Dictation was produced using [employer] dictation software. Please excuse any grammatical, word or spelling errors. IDENTIFYING DATA: Patient is a 34 years old female currently lives with her roommate, collecting disability, has a past psychiatric history of psychosis, cannabis use disorder, OMAIRA, and intellectual disability presented to the hospital for auditory hallucination that can be commanding in nature. HPI: Patient presented to the hospital for auditory hallucination, reported that she is afraid that she is going to harm herself. She did not report any plan. Per ED note "the patient was pacing the room, AO x 4. [facility] clinician Hector called prior to admission to report [facility] had recorded call from Gisselle not doing well past 6 days, has been anxious, tearful, and pacing, has strong voices telling her to kill herself by cutting her throat. Cl tearful, states " I am scared, I want them to stop." Not sure if patient is taking medication, not sure that anyone is monitoring. Reported hearing voices all day, and they are telling her to get a knife and kill herself, cl also reported seeing people that are out to get her. CL presents anxious, overwhelmed, suspicious, paranoid, having auditory hallucination commanding in nature, tearful, and restless. CL is unemployed, living with a friend and the roommate. CL is open to [facility]. CL reported last use of alcohol was 12/27/2024, daily heavy THC use. UDS positive THC. Upon evaluation in the unit the patient was in her room, agreed to speak with the consumer loan underwriter in the office. She states she has been hearing voices for a long time. States that the voices stopped after she left the hospital however it came back, states that she is hearing the voices now, states that it is telling here "to not be around." States that it is a male voice, she verduzco snot believe it is real. She reported paranoia, denied VH. States that her sleep is not that good, however reported 10 to 12 hours of sleep at night, and reported good appetite. Admitted to feeling down, sad and depressed, states that "I was born with depression." She denied any current SI/HI or self harm, denied any previous history of suicide. Patient reported flight of ideas, and racing thoughts however denied any other manic or hypomanic symptoms. Patient admits to using cannabis daily, and smoking tobacco 1 ppd for many years. She denied using alcohol, denied using any other substance. Pt states that she has been taking her medication daily and states that her roommate told her it is not helping since she could not sit still, and has been having some body movements. PAST PSYCHIATRIC HISTORY: - Inpatient Hospitalizations: History of multiple inpatient psychiatric hospitalization including 3 times at [facility] from December to January 2025 - Outpatient Care: [facility] - Current Psychotropics: Perphenazine 8 mg p.o. twice daily, trazodone 100 mg p.o. at bedtime, melatonin 10 mg p.o. at bedtime (patient reported that she has been compliant with her medications) - Prior Psychotropics/Therapy: Invega, risperidone - Prior Psychiatric diagnoses: History of unspecified psychotic disorder, and intellectual disability - Suicidal Attempts: 1 prior attempt via cutting her wrist - Trauma History: Denies PMH: as per ER note Past Medical History: No Reported History Additional Past Medical History / Comment(s): developmental delay History of Any Multi-Drug Resistant Organisms: None Reported Past Surgical History: Section Past Anesthesia/Blood Transfusion Reactions: No Reported Reaction Past Psychological History: Depression Smoking Status: Current every day smoker Past Alcohol Use History: None Reported Past Drug Use History: Marijuana ALLERGIES: as per EMR CHEMICAL DEPENDENCY HISTORY: as per HPI FAMILY PSYCHIATRIC/SUBSTANCE USE HISTORY: Patient reported that her brother and sister have some sort of a mental illness SOCIAL HISTORY: Patient was born and raised in [place], claims that she completed high school, had special education, reported that she was once and has 1 child, currently lives with a roommate " Codi". She collects disability and denies any legal issues. MENTAL STATUS EXAM: General Appearance: Patient appears to be stated age is alert, directable, and attempts to cooperate. Patient appears to have poor hygiene and grooming. Behavior: Patient is seated without any agitated behavior. Speech: Patient's speech is fluent and nonpressured, slow at times Mood/Affect: Patient reports their mood is "depressed", affect is congruent and constricted. Suicidality/Homicidality: Patient denies having any homicidal ideation intent or plan. Denies any suicidal ideations intent or plan Perceptions: Patient denies any visual hallucinations and mated to having auditory hallucinations for a long time Though content/process: Thought content is linear, logical at time, there is no evidence of any delusional thought content, little limited due to patient intellectual disability Memory and concentration: AOX3, grossly intact for the purposes of this session. Judgment and insight: poor STRENGTHS/WEAKNESSES: strength is that patient is resilient. Weakness is that patient has poor judgment and is impulsive INTELLECT: below average IMPRESSIONS: -Schizophrenia spectrum and other unspecified psychotic disorder -Rule out schizoaffective disorder -Rule out cannabis-induced causes -Cannabis use disorder -Generalized anxiety disorder -Intellectual disability PLAN: -Patient is admitted under voluntary status to [facility] for stabilization of psychiatric symptoms and safety. Patient has signed adult voluntary form and medication consent and is placed in patient's chart. -Medications : Patient has been compliant with her home medication, continue with her home medication and we will get collateral from her outpatient team as well as her roommate -Continue perphenazine 8 mg p.o. twice daily -Continue trazodone 100 mg p.o. prn at bedtime -Continue melatonin 10 mg p.o. at bedtime -We will start Cogentin 0.5 mg p.o. twice daily -Ativan and Haldol PRN for agitation/aggression -Patient was counselled on cannabis use and desired to cut back on use -Patient was informed of the risks, benefits and side effects of the medication and patient verbally consented to taking the medications. Patient signed med consent form and was placed in chart. -Internal Medicine consult to perform medical evaluation and physical. -NRT - nicotine patch -SW on board for discharge planning. Encourage patient to participate in groups to work on coping skills. Collateral will be helpful for the patient outpatient team as well as her roommate. 03/19/25 08:03 03/19/25 10:10
[2025-03-19] MEDS: BENZTROPINE MESYLATE 0.5 MG TAB PO SCH (10:56)
[2025-03-19 14:13] LABS: Cholesterol 230.00 mg/dL (0.00-200.00); HDL Cholesterol 76.70 mg/dL (40.00-60.00); LDL Cholesterol,Calculated 133.9 mg/dL (0.0-131.0); Triglycerides 96.90 mg/dL (0.00-149.00); VLDL Calculation 19.38 mg/dL (5.00-40.00)
[2025-03-19] MEDS: PERPHENAZINE 4 MG TAB PO SCH (19:57)
--- NOTE | 2025-03-20 11:30 | P.PN ---
Progress Note - Text Progress Note Date: 03/20/25 Dictation was produced using [employer] dictation software. Please excuse any grammatical, word or spelling errors. Interval history: Patient was seen in group and was directable and agreeable to speak with the sheet writer in the office for psychiatric follow-up. The patient states that she is feeling better today, states that her mood is "good, better." States that depression and anxiety at the moderate side, she rated depression at 3/10, and anxiety at 4-4-5/10. She denied any current SI/HI or self harm. She admitted to good sleep last night, and admitted to good appetite. States that the voices are still there however is less intense, states that it is commanding at time, "telling me to cut my throat, I'm ignoring it, I'm not going to do it." She denied any VH. States that she is feeling safe in the unit, and is getting along well with others. She has been taking her taking her medications, and denied any side effects, reported that her neck is a little stiff. She denied any rigidity, and she is less restless today, denied any drooling. An AIMS test was done and scored at 0. MENTAL STATUS EXAM: General Appearance: Patient appears to be stated age is alert, directable, and attempts to cooperate. Patient appears to have poor hygiene and grooming. Behavior: Patient is seated without any agitated behavior. Speech: Patient's speech is fluent and nonpressured Mood/Affect: Patient reports their mood is "good, better", affect is congruent and constricted. Suicidality/Homicidality: Patient denies having any homicidal ideation intent or plan. Denies any suicidal ideations intent or plan Perceptions: Patient denies any visual hallucinations. She reported having auditory hallucinations however is less intense today, and is not bothering her Though content/process: Thought content is linear, logical at time, there is no evidence of any delusional thought content, little limited due to patient intellectual disability Memory and concentration: AOX3, grossly intact for the purposes of this session. Judgment and insight: improving IMPRESSIONS: -Schizophrenia spectrum and other unspecified psychotic disorder -Rule out schizoaffective disorder -Rule out cannabis-induced causes -Cannabis use disorder -Generalized anxiety disorder -Intellectual disability Assessment/Plan: -Continue with current diagnosis. Patient was admitted under voluntary status to U for stabilization of psychiatric symptoms and safety. Patient continues to meet criteria for inpatient psychiatric admission for symptom stabilization and safety. -Medications : -Continue perphenazine 8 mg p.o. twice daily -Continue trazodone 100 mg p.o. prn at bedtime -Continue melatonin 10 mg p.o. at bedtime -Increase Cogentin to 1 mg p.o. twice daily -Ativan and Haldol PRN for agitation/aggression -Monitor for medication compliance and for any psychotropic medication side effects, aims test was done today, scored at 0. Will continue to monitor ongoing response to treatment. Encouraged participation in milieu. -SW on board for discharge planning. Encourage patient to participate in groups to work on coping skills. Collateral will be helpful for the patient outpatient team as well as her roommate.
[2025-03-20] MEDS: BENZTROPINE MESYLATE 1 MG TAB PO SCH (20:01)
[2025-03-21 10:22] VITALS: BMI 27.6
--- NOTE | 2025-03-21 12:15 | P.PN ---
Progress Note - Text Progress Note Date: 03/21/25 Interval history: Patient was seen in group and was directable and agreeable to speak with the editorial writer in the office for psychiatric follow-up. Patient explains that the voices "started creeping and again" and claims that they were very bothersome for her and told her to harm herself. Claims that she was in distress when she came into the hospital. Claims that they are improving mildly since being in the hospital, has been distracting herself going to groups fairly pleasant. Continues to have very poor insight and poor judgment. She claims that she is still smoking marijuana and does not want to quit. We spoke about the option of transitioning back onto long-acting injection to help control her symptoms, she was hesitant about this however claims that she will think about it. He is endorsing that she is taking her medications however is unclear whether she is compliant at home. Claims that she is sleeping fairly, denies any issues with appetite. Agreeable to be restarted back on Risperdal. Claims that the voices are improving mildly, no visual hallucinations, no suicidal or homicidal ideations intent or plan MENTAL STATUS EXAM: General Appearance: Patient appears to be stated age is alert, directable, and attempts to cooperate. Patient appears to have mildly improving hygiene and grooming. Behavior: Patient is seated without any agitated behavior. Superficial Speech: Patient's speech is fluent and nonpressured Mood/Affect: Patient reports their mood is "ok", affect is congruent and constricted. Suicidality/Homicidality: Patient denies having any homicidal ideation intent or plan. Denies any suicidal ideations intent or plan Perceptions: Patient denies any visual hallucinations. She reported having auditory hallucinations however is less intense today Though content/process: Thought content is linear, logical at time, there is no evidence of any delusional thought content Memory and concentration: AOX3, grossly intact f, or the purposes of this session. Judgment and insight: improving IMPRESSIONS: schizoaffective disorder, depressive type Cannabis use disorder Generalized anxiety disorder Intellectual disability Assessment/Plan: -Continue with current diagnosis. Patient was admitted under voluntary status to [facility] for stabilization of psychiatric symptoms and safety. Patient continues to meet criteria for inpatient psychiatric admission for symptom stabilization and safety. -Medications : -discontinue perphenazine 8 mg p.o. twice daily and replaced with risperdal 1 mg bid for psychosis/mood stabilization. -Continue trazodone 100 mg p.o. prn at bedtime -Continue melatonin 10 mg p.o. at bedtime -Cogentin 1 mg p.o. twice daily -Ativan and Haldol PRN for agitation/aggression -Monitor for medication compliance and for any psychotropic medication side effects. Will continue to monitor ongoing response to treatment. Encouraged participation in milieu. -SW on board for discharge planning. Encourage patient to participate in groups to work on coping skills. patient is going to consider BERRY to help stabilize her sx and help with non compliance of medications.
[2025-03-21] MEDS: risperiDONE ODT 1 MG TAB PO SCH (12:44)
--- NOTE | 2025-03-22 12:39 | P.PN ---
Progress Note - Text Progress Note Date: 03/22/25 Interval history: Patient was seen in group and was directable and agreeable to speak with the proposal lead writer in the office for psychiatric follow-up. patient claims that she is doing a bit better today, claims that she is hearing some ringing in her ears. has been participating in groups and socialing with others. states that she slept well last night. claims that she feels the medicatons are making her feel restless and pacing in the hallways. she was fairly focused on dischrge. Claims that she is sleeping fairly, denies any issues with appetite. continues to be hesitant about BERRY. Claims that the voices are improving mildly, no visual hallucinations, no suicidal or homicidal ideations intent or plan MENTAL STATUS EXAM: General Appearance: Patient appears to be stated age is alert, directable, and attempts to cooperate. Patient appears to have mildly improving hygiene and grooming. Behavior: Patient is seated without any agitated behavior. Superficial, improving mildly, appears anxious and resless Speech: Patient's speech is fluent and nonpressured Mood/Affect: Patient reports their mood is "same", affect is congruent and constricted. Suicidality/Homicidality: Patient denies having any homicidal ideation intent or plan. Denies any suicidal ideations intent or plan Perceptions: Patient denies any visual hallucinations. She reported having auditory hallucinations however is less intense today Though content/process: Thought content is linear, logical at time, there is no evidence of any delusional thought content, focused on discharge Memory and concentration: AOX3, grossly intact f, or the purposes of this session. Judgment and insight: chronically limited, improving IMPRESSIONS: schizoaffective disorder, depressive type Cannabis use disorder Generalized anxiety disorder Intellectual disability Assessment/Plan: -Continue with current diagnosis. Patient was admitted under voluntary status to [facility] for stabilization of psychiatric symptoms and safety. Patient continues to meet criteria for inpatient psychiatric admission for symptom stabilization and safety. -Medications : -change risperdal to invega po 3 mg qhs for psychosis/mood stabilization. -Continue trazodone 100 mg p.o. prn at bedtime -Continue melatonin 10 mg p.o. at bedtime -decrease Cogentin 0.5 mg p.o. twice daily -added inderall 20 mg daily for akithesia/restlessness -Ativan and Haldol PRN for agitation/aggression -Monitor for medication compliance and for any psychotropic medication side effects. Will continue to monitor ongoing response to treatment. Encouraged participation in milieu. -SW on board for discharge planning. Encourage patient to participate in groups to work on coping skills. patient is going to consider BERRY to help stabilize her sx and help with non compliance of medications.
[2025-03-22] MEDS: PROPRANOLOL 20 MG TAB PO SCH (14:09)
[2025-03-22] MEDS: PALIPERIDONE 3 MG TAB.ER.24 PO SCH (20:33)
[2025-03-22] MEDS: BENZTROPINE MESYLATE 0.5 MG TAB PO SCH (20:33)
--- NOTE | 2025-03-23 11:08 | P.PN ---
Progress Note - Text Progress Note Date: 03/23/25 Interval history: Patient was seen in group and was directable and agreeable to speak with the data analyst report writer in the office for psychiatric follow-up. patient claims that she is doing a bit better today. She claims that the voices have been improving since yesterday. Claims that she does like the medications at this time continues to be a dope pourer in the hallway he is mentioning mild anxiety at this time. Claims that she is still interacting with others going to groups. Continues to be fairly focused on discharge. states that she slept well last night. she was fairly focused on dischrge. Today she states that she is okay with getting back, the long-acting injection was agreeable to take uzedy once she is stable. claims that she is not hearing voices today, no visual hallucinations, no suicidal or homicidal ideations intent or plan. MENTAL STATUS EXAM: General Appearance: Patient appears to be stated age is alert, directable, and attempts to cooperate. Patient appears to have mildly improving hygiene and grooming. Behavior: Patient is seated without any agitated behavior. Superficial, improving mildly, less anxious today Speech: Patient's speech is fluent and nonpressured Mood/Affect: Patient reports their mood is "better", affect is congruent Suicidality/Homicidality: Patient denies having any homicidal ideation intent or plan. Denies any suicidal ideations intent or plan Perceptions: Patient denies any visual hallucinations. denies any auditory hallucinations today Though content/process: Thought content is linear, logical at time, there is no evidence of any delusional thought content, focused on discharge Memory and concentration: AOX3, grossly intact, or the purposes of this session. Judgment and insight: chronically limited, improving IMPRESSIONS: schizoaffective disorder, depressive type Cannabis use disorder Generalized anxiety disorder Intellectual disability Assessment/Plan: -Continue with current diagnosis. Patient was admitted under voluntary status to [facility] for stabilization of psychiatric symptoms and safety. Patient continues to meet criteria for inpatient psychiatric admission for symptom stabilization and safety. -Medications : -invega po 3 mg qhs for psychosis/mood stabilization. will give patient Uzedy BERRY tomorrow if patient is improving and stable prior to discharge -d/c trazodone -Continue melatonin 10 mg p.o. at bedtime -d/c Cogentin -change inderall 10 mg bid for akithesia/restlessness -Ativan and Haldol PRN for agitation/aggression -NRT - nicotine patch and gum -SW on board for discharge planning. Encourage patient to participate in groups to work on coping skills. Likely discharge Friday if patient is doing well, likely will be given long-acting injection on .
[2025-03-23] MEDS: NICOTINE GUM (POLACRILEX) 2 MG GUM BUCCAL PRN (15:59)
[2025-03-23] MEDS: PROPRANOLOL 10 MG TAB PO SCH (20:41)
--- NOTE | 2025-03-24 12:11 | P.PN ---
Progress Note - Text Progress Note Date: 03/24/25 Interval history: Patient was seen in group and was directable and agreeable to speak with the scenario writer in the office for psychiatric follow-up. Patient claims that she is feeling okay today. Claims that the voices have come down and she has been trying to participate in all the groups. She is less focused on discharge. Not reporting any side effects of the medications at this time. Denies any depression or anxiety. Claims that he feels the medications have been helping and appreciates scenario writer's help. We spoke about transitioning onto the long- acting injection today and she is okay with her to receive that today. She asked more questions about the injection which were answered. Claims that she slept fairly last night denies any changes in appetite. Denies any visual hallucinations and denies any auditory hallucinations, no suicidal or homicidal ideations intent or plan. MENTAL STATUS EXAM: General Appearance: Patient appears to be stated age is alert, directable, and attempts to cooperate. Patient appears to have mildly improving hygiene and grooming. Behavior: Patient is seated without any agitated behavior. Superficial, improving mildly, less anxious today Speech: Patient's speech is fluent and nonpressured Mood/Affect: Patient reports their mood is "good", affect is congruent Suicidality/Homicidality: Patient denies having any homicidal ideation intent or plan. Denies any suicidal ideations intent or plan Perceptions: Patient denies any visual hallucinations. denies any auditory hallucinations today Though content/process: Thought content is linear, logical at time, there is no evidence of any delusional thought content, less focused on discharge Memory and concentration: AOX3, grossly intact, or the purposes of this session. Judgment and insight: chronically limited, improving IMPRESSIONS: schizoaffective disorder, depressive type Cannabis use disorder Generalized anxiety disorder Intellectual disability Assessment/Plan: -Continue with current diagnosis. Patient was admitted under voluntary status to [facility] for stabilization of psychiatric symptoms and safety. Patient continues to meet criteria for inpatient psychiatric admission for symptom stabilization and safety. -Medications : - d/c invega po today. will give patient Uzedy BERRY today 100 mg SQ to help with compliance. -Continue melatonin 10 mg p.o. at bedtime -inderall 10 mg bid for akithesia/restlessness -Ativan and Haldol PRN for agitation/aggression -NRT - nicotine patch and gum -SW on board for discharge planning. Encourage patient to participate in groups to work on coping skills. Likely discharge Friday if patient is doing well.
[2025-03-24] MEDS: PALIPERIDONE 3 MG TAB.ER.24 PO STA (12:22)
[2025-03-24] MEDS: risperiDONE 100 MG/0.28 ML SYR (NO COST) SQ SCH (12:56)
[2025-03-25 09:07] VITALS: BP 102/63; PULSE 71; RESP 16; TEMP 97.9
--- NOTE | 2025-03-25 10:30 | P.DS ---
Providers Date of admission: 03/18/25 17:08 Expected date of discharge: 03/25/25 Attending physician: Darryl Hoang MD Consults: 03/18/25 18:08 Consult Physician Routine Consulting Provider: Conner Wyatt Consult Reason/Comments: history and physical/medical management Do you want consulting provider notified?: Yes Primary care physician: Stated None - Discharge Diagnosis(es) (1) Schizoaffective disorder, depressive type Current Visit: Yes Status: Acute Priority: High (2) Cannabis use disorder Current Visit: Yes Status: Acute Priority: High (3) Generalized anxiety disorder Current Visit: Yes Status: Acute Priority: Medium (4) Intellectual disability Current Visit: Yes Status: Acute Priority: Medium Hospital Course: Admission HPI: Admission note was completed by Dr Frausto "patient is a 34 years old female currently lives with her roommate, collecting disability, has a past psychiatric history of psychosis, cannabis use disorder, OMAIRA, and intellectual disability presented to the hospital for auditory hallucination that can be commanding in nature. Patient presented to the hospital for auditory hallucination, reported that she is afraid that she is going to harm herself. She did not report any plan. Per ED note "the patient was pacing the room, AO x 4. [facility] clinician Hector called prior to admission to report [facility] had recorded call from Gisselle not doing well past 6 days, has been anxious, tearful, and pacing, has strong voices telling her to kill herself by cutting her throat. Cl tearful, states " I am scared, I want them to stop." Not sure if patient is taking medication, not sure that anyone is monitoring. Reported hearing voices all day, and they are telling her to get a knife and kill herself, cl also reported seeing people that are out to get her. CL presents anxious, overwhelmed, suspicious, paranoid, having auditory hallucination commanding in nature, tearful, and restless. CL is unemployed, living with a friend and the roommate. CL is open to [facility]. CL reported last use of alcohol was 12/27/2024, daily heavy THC use. UDS positive THC. Upon evaluation in the unit the patient was in her room, agreed to speak with the marketing writer in the office. She states she has been hearing voices for a long time. States that the voices stopped after she left the hospital however it came back, states that she is hearing the voices now, states that it is telling here "to not be around." States that it is a male voice, she verduzco snot believe it is real. She reported paranoia, denied VH. States that her sleep is not that good, however reported 10 to 12 hours of sleep at night, and reported good appetite. Admitted to feeling down, sad and depressed, states that "I was born with depression." She denied any current SI/HI or self harm, denied any previous history of suicide. Patient reported flight of ideas, and racing thoughts however denied any other manic or hypomanic symptoms. Patient admits to using cannabis daily, and smoking tobacco 1 ppd for many years. She denied using alcohol, denied using any other substance. Pt states that she has been taking her medication daily and states that her roommate told her it is not helping since she could not sit still, and has been having some body movements." Hospital course: Upon admission to the unit patient was directable and agreeable to commence treatment and signed adult voluntary form. Patient was initially in distress tearful depressed and hallucinating however with time and treatment patient got along well with other patients on the unit and followed unit protocol. Patient was compliant with the medications and denied any side effects throughout hospital course. Patient was started on Invega p.o which was then transitioned into Uzedy 100 mg SQ was given on 03/24 and next dose will be due on 04/21. melatonin 10 mg qhs for sleep, inderall 10 mg bid for akithesia/restlessness. Patient spoke of her stressors and engaged in therapy both group/activity therapy. Patient was also seen by medical team for history and physical exam. Throughout the course of the hospitalization patient gradually improved with regards to mood, anxiety, psychosis, sleep and returned back to their baseline level of functioning. On the day of discharge patient denied any suicidal or homicidal ideations intent or plan denied any auditory or visual hallucinations. Patient endorsed wanting to live for their health and family. The patient denied any access to guns or weapons. Patient denied any paranoia and did not endorse any delusions. Patient does have a significant history of substance abuse and was counseled on abstaining from all substances including alcohol and marijuana. Patient was offered however declined inpatient substance-abuse rehab. Patient elected to do outpatient substance use treatment program through their outpatient provider. Patient was also counseled on the medications and need for regular compliance and was encouraged to follow-up with their o utpatient appointment for mental health and also for primary care. Patient will be following up and monitor closely by either ACT team or next step program through [facility] Mental status exam: General Appearance: Patient appears to be short in stature, stated age is alert, pleasant, and cooperative. Patient is in no acute distress and has improved hygiene and grooming Behavior: Patient is calmly seated without any agitated behavior. Speech: Patient's speech is fluent and nonpressured. Mood/Affect: Patient reports their mood is "good", affect is congruent and euthymic. Suicidality/Homicidality: Patient denies having any suicidal or homicidal ideation intent or plan. Perceptions: Patient denies any auditory or visual hallucinations. Though content/process: There is no evidence of any delusional thought content and thought process is linear and goal-directed. More future oriented Memory and concentration: AOX3, grossly intact for the purposes of this session. Can spell "WORLD" backwards correctly. Judgment and insight: Chronically limited, improved with guarded prognosis Impression: Schizoaffective disorder depressive type Cannabis use disorder Generalized anxiety disorder Intellectual disability Plan: -Continue with discharge today as patient has improved and stabilized psychiatrically and is not currently an imminent threat to themself and/or others. Patient will remain at chronically elevated risk for harm to self and/or others due to their impulsivity and substance abuse. -Continue medications: Discontinue p.o. Invega, patient was given Uzedy 100 mg subcutaneous given on 03/24 and next dose will be due at [facility] on 04[facility]. Melatonin 10 mg nightly for sleep, Inderal 10 mg twice daily for akathisia/restlessness. -Patient was counseled on the need for medication compliance and appropriate follow-up at mental health and also primary care for medical issues. Patient verbalized understanding and agreed. -Social work to help coordinate patients discharge today. also to ensure safe home environment that guns/weapons are either removed from the home or locked away. Social work also to arrange for patients follow up appointments with [facility] for psychiatric care along with follow up with primary care provider. -Patient counseled on abstaining from recreational drugs and marijuana and alcohol. Was informed/educated on the adverse effects on their physical and mental health. Patient verbally agreed and understood. Patient was offered substance abuse treatment however declined at this time. -Patient was instructed to return to the hospital or seek immediate medical care if their psychiatric or medical symptoms do worsen or reoccur. Allergies Allergy/AdvReac Type Severity Reaction Status Date / Time No Known Allergies Allergy Verified 03/18/25 14:42 Laboratory Results WBC 7.42 10*3/uL (4.50-10.00) 03/19/25 08:21 RBC 4.63 10*6/uL (4.10-5.20) 03/19/25 08:21 Hgb 13.2 g/dL (12.0-15.0) 03/19/25 08:21 Hct 40.9 % (37.2-46.3) 03/19/25 08:21 MCV 88.3 fL (80.0-97.0) 03/19/25 08:21 MCH 28.5 pg (27.0-32.0) 03/19/25 08:21 MCHC 32.3 g/dL (32.0-37.0) 03/19/25 08:21 Plt Count 301 10*3/uL (140-440) 03/19/25 08:21 MPV 10.5 fL (9.5-12.2) 03/19/25 08:21 Immature Gran % (Auto) 0.3 % 03/19/25 08:21 Neutrophils % 67.8 % 03/19/25 08:21 Lymphocytes % 23.0 % 03/19/25 08:21 Monocytes % 7.4 % 03/19/25 08:21 Eosinophils % 0.8 % 03/19/25 08:21 Basophils % 0.7 % 03/19/25 08:21 Immature Gran # 0.02 10*3/uL (0.00-0.04) 03/19/25 08:21 Neutrophils # 5.03 10*3/uL (1.80-7.70) 03/19/25 08:21 Lymphocytes # 1.71 10*3/uL (0.90-5.00) 03/19/25 08:21 Monocytes # 0.55 10*3/uL (0.20-1.00) 03/19/25 08:21 Eosinophils # 0.06 10*3/uL (0.04-0.35) 03/19/25 08:21 Basophils # 0.05 10*3/uL (0.00-0.10) 03/19/25 08:21 Sodium 138 mmol/L (137-145) 03/19/25 08:21 Potassium 4.8 mmol/L (3.5-5.1) 03/19/25 08:21 Chloride 105 mmol/L (98-107) 03/19/25 08:21 Carbon Dioxide 25 mmol/L (22-30) 03/19/25 08:21 Anion Gap 8 mmol/L 03/19/25 08:21 BUN 11 mg/dL (7-17) 03/19/25 08:21 Creatinine 0.79 mg/dL (0.52-1.04) 03/19/25 08:21 Est GFR (CKD-EPI)AfAm >90 (>60 ml/min/1.73 sqM) 03/19/25 08:21 Est GFR (CKD-EPI)NonAf >90 (>60 ml/min/1.73 sqM) 03/19/25 08:21 Glucose 109 mg/dL (74-99) H 03/19/25 08:[address] Glu mg/dL 103 mg/dL 03/19/25 08:21 Hemoglobin A1c 5.2 % (<=6.0) 03/19/25 08:21 Calcium 9.6 mg/dL (8.4-10.2) 03/19/25 08:21 Total Bilirubin 1.1 mg/dL (0.2-1.3) 03/19/25 08:21 AST 16 U/L (14-36) 03/19/25 08:21 ALT 14 U/L (4-34) 03/19/25 08:21 Alkaline Phosphatase 70 U/L (38-126) 03/19/25 08:21 Total Protein 6.9 g/dL (6.3-8.2) 03/19/25 08:21 Albumin 4.5 g/dL (3.5-5.0) 03/19/25 08:21 Triglycerides 96.90 mg/dL (0.00-149.00) 03/19/25 08:21 Cholesterol 230.00 mg/dL (0.00-200.00) H 03/19/25 08:21 LDL Cholesterol, Calc 133.9 mg/dL (0.0-131.0) H 03/19/25 08:21 VLDL Cholesterol, Calc 19.38 mg/dL (5.00-40.00) 03/19/25 08:21 HDL Cholesterol 76.70 mg/dL (40.00-60.00) H 03/19/25 08:21 Cholesterol/HDL Ratio 3.00 Ratio 03/19/25 08:21 TSH 1.530 mIU/L (0.465-4.680) 03/19/25 08:21 Urine Color Colorless 03/18/25 13:04 Urine Appearance Clear (Clear) 03/18/25 13:04 Urine pH 6.5 (5.0-8.0) 03/18/25 13:04 Ur Specific [place] 1.008 (1.001-1.035) 03/18/25 13:04 Urine Protein Negative (Negative) 03/18/25 13:04 Urine Glucose (UA) Negative (Negative) 03/18/25 13:04 Urine Ketones Negative (Negative) 03/18/25 13:04 Urine Blood Negative (Negative) 03/18/25 13:04 Urine Nitrite Negative (Negative) 03/18/25 13:04 Urine Bilirubin Negative (Negative) 03/18/25 13:04 Urine Urobilinogen <2.0 mg/dL (<2.0) 03/18/25 13:04 Ur Leukocyte Esterase Negative (Negative) 03/18/25 13:04 Urine HCG, Qual Not Detected (Not Detectd) 03/18/25 13:04 Urine Opiates Screen Not Detected (NotDetected) 03/18/25 13:04 Ur Oxycodone Screen Not Detected (NotDetected) 03/18/25 13:04 Urine Methadone Screen Not Detected (NotDetected) 03/18/25 13:04 Ur Barbiturates Screen Not Detected (NotDetected) 03/18/25 13:04 U Tricyclic Antidepress Not Detected (NotDetected) 03/18/25 13:04 Ur Phencyclidine Scrn Not Detected (NotDetected) 03/18/25 13:04 Ur Amphetamines Screen Not Detected (NotDetected) 03/18/25 13:04 U Methamphetamines Scrn Not Detected (NotDetected) 03/18/25 13:04 U Benzodiazepines Scrn Not Detected (NotDetected) 03/18/25 13:04 Urine Cocaine Screen Not Detected (NotDetected) 03/18/25 13:04 U Marijuana (THC) Screen Detected (NotDetected) H 03/18/25 13:04 SARS-CoV-2 (PCR) Not Detected (Not Detectd) 03/18/25 14:51 Vital Signs Temp 97.9 F 03/25/25 09:00 Pulse 71 03/25/25 09:00 Resp 16 03/25/25 09:00 BP 102/63 03/25/25 09:00 Pulse Ox 98 03/25/25 09:00 FiO2 Intake & Output 03/24/25 03/25/25 03/25/25 18:59 06:59 18:59 Weight 70.6 kg Patient Condition at Discharge: Stable Plan - Discharge Summary Discharge Rx Participant: No New Discharge Prescriptions: New Propranolol [Inderal] 10 mg PO BID 30 Days #60 tab Melatonin 10 mg PO HS 30 Days #30 tab Nicotine Gum (Polacrilex) [Nicorette] 2 mg BUCCAL Q2HR PRN pieceofgum PRN Reason: Nicotine Cravings risperiDONE [Uzedy] 100 mg SQ QMONTHLY #1 each Discontinued traZODone HCL [Desyrel] 100 mg PO HS 30 Days #30 tab Perphenazine [Trilafon] 8 mg PO BID 30 Days #120 tab Melatonin 10 mg PO HS 30 Days #60 tab Discharge Medication List Melatonin 10 mg PO HS 30 Days #30 tab 03/25/25 [Rx] Nicotine Gum (Polacrilex) [Nicorette] 2 mg BUCCAL Q2HR PRN pieceofgum 03/25/25 [Rx] Propranolol [Inderal] 10 mg PO BID 30 Days #60 tab 03/25/25 [Rx] risperiDONE [Uzedy] 100 mg SQ QMONTHLY #1 each 03/25/25 [Rx] Follow up Appointment(s)/Referral(s): [facility] [Outside] - 03/29/25 12:30 pm (03/29 at 12:30pm with Meghan Carrion 04/13 at 8:00am with Dr. Gutierrez) None,Stated [Primary Care Provider] - 1-2 days Activity/Diet/Wound Care/Special Instructions: [facility] Discharge Info Avoid the use of street drugs and alcohol. Take all medications as prescribed. When you are in need of refills on your medications, please contact your outpatient medical provider and/or outpatient psychiatrist. Please go to your scheduled outpatient appointments for aftercare treatment. If symptoms return or become worse, call the crisis line at or and/or visit the nearest emergency room for assistance. [place] [facility] - call or text [phone].Medical physician recommends to follow up outpatient in 4-6 weeks to have thyroid levels checked again. Recommendations to have an EMG outpatient on bilateral upper extremities for probable bilateral carpal tunnel. Discharge Disposition: HOME SELF-CARE
== END 2025-03-25 12:19 | disposition home or self-care (01) | DRG 761 ==
LOC: EC 12:19 → 3MHU 17:08
PROVIDERS: ADMIT Psychiatry & Neurology Psychiatry; ATTEND Psychiatry & Neurology Psychiatry
DX: F25.1 Schizoaffective disorder, depressive type (principal); F12.10 Cannabis abuse, uncomplicated; F41.1 Generalized anxiety disorder; F79 Unspecified intellectual disabilities; R45.851 Suicidal ideations; F17.210 Nicotine dependence, cigarettes, uncomplicated; F17.290 Nicotine dependence, other tobacco product, uncomplicated; Z79.899 Other long term (current) drug therapy; Z91.51 Personal history of suicidal behavior; Z71.51 Drug abuse counseling and surveillance of drug abuser
CPT/HCPCS: 80053; 80061; 80306; 81003; 81025; 82075; 83036; 84443; 85025; 87635; 99285